=== PATIENT | female | born 1955 | race Caucasian/White ===

== ENCOUNTER 2017-09-30 16:26 | Emergency (ER) | payer MEDICAID, SELFPAY ==
[2017-09-30 16:26] VITALS: BP 197/40; PULSE 70; RESP 16; O2SAT 99
[2017-09-30 16:37] VITALS: BP 203/108; PULSE 80; RESP 18; O2SAT 98; BMI 30.7
--- NOTE | 2017-09-30 16:48 | XR_ITS ---
XR chest 2V HISTORY: ITS.REASON: HYPERTENSIVE ORDERING PHYSICIAN: Shreyas Joe MD PATIENT AGE: 62 years COMPARISON: None available FINDINGS: The cardiomediastinal silhouette and pulmonary vascularity are within normal limits. A loop recorder device noted over the left chest. No lobar consolidation or collapse. 7 mm nodular opacity is present in right upper lobe overlying the first rib anteriorly and may be due to summation artifact versus underlying nodule. Follow-up may confirm stability. No old films available for review. No acute bony anomalies. Again change thoracic spine. IMPRESSION: 1. No acute finding. 2. Right upper lobe nodular opacity. Follow-up suggested. +
--- NOTE | 2017-09-30 16:51 | HMH.EDGENADL ---
ED Disposition Clinical Impression: Accelerated hypertension, Dehydration Disposition: Home, Self-Care Condition on Discharge: Fair Additional Instructions: Drink lots of fluids and keep record of BP as before Time of Disposition: 18:15 - Critical Care Critical Care Time: No Attestation: On , the high probability of a clinically significant, sudden or life threatening deterioration of the following system(s) required my full and direct attention, intervention and personal management. The time I documented below is in addition to time spent performing reported procedures but includes the following listed in this critical care notation. Medical Decision Making - Medical Records Medical records reviewed: Yes: I reviewed the patient's medical records. Vital Signs: 09/30/17 16:26 09/30/17 16:37 09/30/17 16:56 Temperature Source Oral Pulse Rate [Right Brachial] 70 80 78 Respiratory Rate 16 16 Blood Pressure [Right Arm] 197/40 203/108 137/81 Blood Pressure Mean [Right Arm] 92 139 99 Blood Pressure Source [Right Arm] Automatic Cuff Automatic Cuff Blood Pressure Position [Right Arm] Sitting Sitting 02 Sat by Pulse Oximetry 99 98 98 Oxygen Delivery Method Room Air - Lab Data Lab results reviewed: Yes: I reviewed the patient's lab results. Lab Results 09/30/17 16:55: WBC 5.9, RBC 4.55, Hgb 13.1, Hct 39.2, MCV 86.2, MCH 28.8, MCHC 33.4, RDW 12.2, Plt Count 276, MPV 6.9 L, Neut % (Auto) 54.4, Lymph % (Auto) 38.3, [place] % (Auto) 3.6, Eos % (Auto) 3.2, Baso % (Auto) 0.5, Neut # (Auto) 3.2, Lymph # (Auto) 2.3, [place] # (Auto) 0.2, Eos # (Auto) 0.2, Baso # (Auto) 0.0 09/30/17 16:55: Sodium 140, Potassium 3.4 L, Chloride 102, Carbon Dioxide 32, Anion Gap 9.4, BUN 30 H, Creatinine 1.31 H, Estimated Creat Clear 50, Estimated GFR 41 L, Est GFR ( Amer) 50 L, Glucose 105, Calcium 9.6, Total Bilirubin 0.7, AST 30, ALT 53, Alkaline Phosphatase 181 H, Total Creatine Kinase 90, CK-MB (CK-2) 1.2, CK-MB (CK-2) Rel Index 1.3, Troponin I < 0.02, Total Protein 7.6, Albumin 4.1, Globulin 3.5 H, Albumin/Globulin Ratio 1.2 Result diagrams: 09/30/17 16:55 09/30/17 16:55 Orders (Tests/Meds): ED MEDICATIONS Discontinued Medications Generic Name Dose Route Start Last Admin Trade Name Freq PRN Reason Stop Dose Admin Hydralazine HCl 20 mg 09/30/17 17:05 09/30/17 17:11 Apresoline 20mg/Ml 1ml Vial IV 09/30/17 17:06 20 mg ONCE ONE Administration ORDERS Category Date Time Status Chest XR 2 view (NOT portable) [XR chest 2V] Stat Exams 09/30/17 16:48 Taken - Radiology Data #1 Image(s): Chest Image Reviewed: Yes I reviewed the patient's radiology results, Yes I reviewed the patient's radiology image - CT Data CT Scan: Head Time Received: 18:[address] Reviewed: Yes: I have reviewed the patient's CT results, I discussed the CT results w/the radiologist, I have viewed the radiologist's interpretation Preliminary Findings: Normal/NAD Findings Narrative: Old strokes seen but nothing acute - Meño Inquiry Pt receiving controlled substance: No Meño was queried for this patient: No General Adult HPI - General Chief complaint: Weakness Stated complaint: bp Time Seen by Provider: 09/30/17 16:58 Mode of Arrival: Ambulatory Source of Information: Patient Limitations: No Limitations Description of Symptoms (Recalled from ER Triage Doc. by RN): HYPERTENSIVE EPISODE WHILE WAITING ON THE DR - History of Present Illness HPI narrative: Pt had astrok about 1 1/2 years ago and has some very mild right sided numbness left . she has had some hoarseness for awhile and was sent by Dr. Jorge to See the ENT today and the ENT office was very busy and she felt a little lightheaded and her BP was taken and was 208/[address] Jorge wanted her to come to the ED to be evaluated. Her BP has been up a little for the past week and on arrival here, BL=899/108 and repeat was 197/80. She has also had some mi
[2017-09-30 16:56] VITALS: BP 137/81; PULSE 78; RESP 16; O2SAT 98
--- NOTE | 2017-09-30 17:05 | CT_ITS ---
CT head/brain wo con Ordering Physician: Shreyas Joe MD Patient Age: 62 years: Female HISTORY: ITS.REASON: headache and hypertension Headache hypertension TECHNIQUE: Standard axial CT head without contrast. Bone and brain windows submitted to PACS. COMPARISON :Previous head CT 11/06/2015. FINDINGS Old area of encephalomalacia at the medial left occipital lobe. There is also low-density at the right parietal-occipital junction of watershed region which more likely reflects an old area of ischemia. . Small calcification at the posterior aspect of the area appears reflect old feature. This is new since 2016 . No hemorrhage. No mass lesion or mass effect.Mild diffuse cerebral atrophy again noted Skull is intact. Visualized paranasal sinuses unremarkable. Mastoid air cells middle ear IACs unremarkable. IMPRESSION: 1. No hemorrhage. No mass lesion No discrete acute findings. 2. What appear most likely moderate old infarct with encephalomalacia at right parieto-occipital region./, Posterior Watershed region.. Suggestion scant calcification at posterior margin of this old infarct possibly raises possibility of old hemorrhagic features.... I have discussed with ER doctor & patient gives history of old infarcts with no new left-sided symptoms to raise concern regarding more recent event... This is new observations since April 2016 3. Small thin old area of ischemia at the medial left occipital lobe. Again noted. Stable since 2015 4. Also stable Tiny old lacunar infarct right central ambreen
[2017-09-30 17:08] LABS: Basophils % 0.5 % (0.1-2.0); Eosinophils # 0.2 K/mm3 (0.0-0.4); Eosinophils % 3.2 % (0.1-12.0); Hematocrit 39.2 % (37.0-47.0); Hemoglobin 13.1 g/dL (12.2-16.2); Lymphocytes # 2.3 K/mm3 (0.7-4.5); Lymphocytes % 38.3 K/mm3 (10-50); Mean Corpuscular HGB Conc 33.4 g/dL (31.8-35.4); Mean Corpuscular Hemoglobin 28.8 pg (27.0-31.2); Mean Corpuscular Volume 86.2 fl (81-99); Mean Platelet Volume 6.9 fl (7.4-10.4); Monocytes # 0.2 K/mm3 (0.1-1.0); Monocytes % 3.6 % (1.7-9.3); Neutrophils # 3.2 K/mm3 (1.8-7.8); Neutrophils % 54.4 % (37.0-80.0); Platelet Count 276 K/mm3 (142-424); Red Blood Count 4.55 M/mm3 (4.20-5.40); Red Cell Distribution Width 12.2 % (11.5-17.5); White Blood Count 5.9 K/mm3 (4.8-10.8)
[2017-09-30 17:30] LABS: Alanine Aminotransferase 53 U/L (12-78); Albumin Level 4.1 gm/dL (3.4-5.0); Albumin/Globulin Ratio 1.2 (1.1-1.8); Alkaline Phosphatase 181 U/L (46-116); Anion Gap 9.4 mEq/L (5-15); Aspartate Amino Transferase 30 U/L (15-37); Bilirubin,Total 0.7 mg/dL (0.2-1.0); Blood Urea Nitrogen 30 mg/dL (7-18); CKMB Relative Index 1.3 U/L (0-4.0); Calcium 9.6 mg/dL (8.5-10.1); Carbon Dioxide 32 mmol/L (21.0-32.0); Chloride 102 mmol/L (98-107); Creatine Kinase 90 U/L (26-192); Creatine Kinase MB 1.2 mg/ml (0.0-3.6); Creatinine Clearance Estimated 50 mL/min (0-300); Creatinine,Serum 1.31 mg/dL (0.55-1.02); Estimated Glomerular Filt Rate 41 ml/min (>60); GFR (African American) 50 ML/MIN (>60); Globulin 3.5 gm/dl (1.3-3.2); Glucose 105 mg/dL (74-106); Potassium 3.4 mmoL/L (3.5-5.1); Sodium 140 mmol/L (136-145); Total Protein,Serum 7.6 gm/dL (6.4-8.2); Troponin I < 0.02 ng/ml (0.00-0.06)
--- NOTE | 2017-09-30 17:47 | PC.NURSE ---
NO ACUTE ABNORMALITIES
[2017-09-30 18:45] VITALS: BP 125/80; PULSE 85; RESP 18
== END 2017-09-30 18:45 | disposition home or self-care (01) ==
PROVIDERS: Emergency Provider General Practice; PCP Emergency Medicine
DX: E86.0 Dehydration (principal); I16.0 Hypertensive urgency; E11.9 Type 2 diabetes mellitus without complications; Z86.73 Personal history of transient ischemic attack (TIA), and cerebral infarction without residual deficits; E78.5 Hyperlipidemia, unspecified; Z79.82 Long term (current) use of aspirin
CPT/HCPCS: 70450; 71046; 80053; 82550; 82553; 84484; 85025; 93005; 99284

== ENCOUNTER → 2023-02-28 07:59 | Outpatient (CLI) | payer MEDICARE, SELFPAY ==
--- NOTE | 2023-02-28 | CA_ITS ---
FINAL REPORT TECHNIQUE: Grayscale, color Doppler and duplex Doppler ultrasound of the kidneys, aorta and renal arteries was performed. Multiple velocities were measured. CLINICAL HISTORY: HTN COMPARISON: None FINDINGS: Aorta velocity: 102 cm/sec Right kidney: 9.3 cm. There is a 0.8 cm cystic structure in the right kidney. Right intrarenal RI: 0.69-0.75 Right renal artery velocity: 152 cm/sec. Right RAR (Renal artery-Aortic Ratio): 1.49 Left Kidney: 8.3 cm. No evidence of hydronephrosis or mass. Left intrarenal RI: 0.64-0.71 Left renal artery velocity: 175 cm/sec. Left RAR (Renal Artery-Aortic Ratio): 1.72 IMPRESSION: No evidence of significant renal artery stenosis. CT angiogram or postcontrast MR angiogram would be more sensitive for evaluation of possible renal artery stenosis. Reviewed, Interpreted and Dictated by Colton Tang MD Transcribed by Allison Cooper Authenticated and [facility]
--- NOTE | 2023-02-28 | CA_ITS ---
FINAL REPORT TECHNIQUE: Color Doppler, duplex Doppler and caceres scale sonography of the bilateral neck arterial vasculature was performed. Velocities were measured in the carotid arteries. Stenosis evaluation based on the validated velocity criteria. CLINICAL HISTORY: hx- hemorrhagic stroke 7 years ago. HTN, Dizziness COMPARISON: none FINDINGS: The peak systolic velocity of the right common carotid artery is 50 cm/s. The peak systolic velocity of the right internal carotid artery is 60 cm/s and end diastolic velocity 19 cm/s. The ICA/CCA ratio is 1.07. A minimal amount of plaque is present. The right external carotid artery is patent. The right vertebral artery is patent with antegrade flow. The peak systolic velocity of the left common carotid artery is 55 cm/s. The peak systolic velocity of the left internal carotid artery is 96 cm/s and end diastolic velocity 30 cm/s. The ICA/CCA ratio is 1.81. A minimal amount of plaque is present. The left external carotid artery is patent.The left vertebral artery is patent with antegrade flow. IMPRESSION: Less than 50% bilateral carotid stenoses. Bilateral patent vertebral arteries with antegrade flow. If indicated, CTA or MRA could further evaluate. Reviewed, Interpreted and Dictated by Colton Tang MD Transcribed by Allison Cooper Authenticated and [facility]
== END ==
PROVIDERS: PCP Family Medicine; Visit Provider Family Medicine
DX: R09.89 Other specified symptoms and signs involving the circulatory and respiratory systems (principal)
CPT/HCPCS: 93880; 93976

== ENCOUNTER 2023-02-28 10:28 | Emergency (ER) | payer MEDICARE, SELFPAY ==
[2023-02-28] VITALS (17 sets, daily range): BP systolic 142–218; BP diastolic 61–132; PULSE 45–99; RESP 12–22; TEMP 36.8; O2SAT 96–100; BMI 27.3
--- NOTE | 2023-02-28 10:35 | PC.NURSE ---
ALAN HAYNES at
[2023-02-28 10:46] LABS: POC Glucose,Bedside 95 (70-110)
--- NOTE | 2023-02-28 10:46 | PC.NURSE ---
RN & MD @ BS for labetalol administration.
--- NOTE | 2023-02-28 10:57 | PC.NURSE ---
VO for EKG from MD for cardiac rate and rhythm change
--- NOTE | 2023-02-28 10:57 | HMH.EDNEU ---
Discharge Plan Disposition Patient Disposition: Home, Self-Care Prescriptions Prescriptions: New hydralazine 25 mg tablet 25 mg PO TID Qty: 30 0RF No Action (DME) lancets [OneTouch Delica Plus Lancet] 33 gauge misc See Rx Instructions .ROUTE .COMPLEX Qty: 100 3RF Dose Instruction: USE 1 TO CHECK GLUCOSE TWICE DAILY Rx Instructions: USE 1 TO CHECK GLUCOSE TWICE DAILY hydrochlorothiazide 12.5 mg tablet 12.5 mg PO DAILY Qty: 30 2RF (DME) OneTouch Ultra Test Strip See Rx Instructions .ROUTE .COMPLEX Qty: 100 2RF Dose Instruction: USE 1 STRIP TO CHECK GLUCOSE TWICE DAILY Rx Instructions: USE 1 STRIP TO CHECK GLUCOSE TWICE DAILY amlodipine [Norvasc] 5 mg tablet 5 mg PO HS Qty: 30 0RF Referrals Follow up/Referrals: Shaan Lala MD [Primary Care Provider] - See instructions Clinical Impressions Clinical Impression: Accelerated hypertension Discharge ED Provider: Matt Larkin Neuro HPI General Chief Complaint: Neuro Symptoms/Deficit Stated Complaint: headache Time Seen by Provider: 02/28/23 10:44 Mode of Arrival: Ambulatory Source of Information: Patient Limitations: No Limitations Description of Symptoms (Recalled from ER Triage Doc. by RN): Presents to ED with complaints of right sided headache that began at 0200 this morning further reports intermittent headache x 3 days. Hx of CVA x3 (most recent x 7 years ago). No neuro deficits noted. Denies BP meds History of Present Illness HPI Narrative: 67-year-old white female presents with headache on the right side beginning about 2:00 this morning she has had history of 3 strokes all the most recent being 7 years ago she has antihypertensives prescribed but she does not take them. She lists lisinopril as an allergy and has a diagnosis of accelerated hypertension. The medications that she has listed for blood pressure include amlodipine 5 mg and hydrochlorothiazide 12.5 mg Related Data Previous Rx's Medication Instructions Recorded lancets 33 gauge (OneTouch Delica #100 ea 05/01/21 Plus Lancet) hydrochlorothiazide 12.5 mg tablet 12.5 mg PO DAILY #30 tabs 09/05/21 blood sugar diagnostic (OneTouch #100 ea 09/11/21 Ultra Test strips) amlodipine 5 mg tablet (Norvasc) 5 mg PO HS #30 tabs 05/23/22 hydralazine 25 mg tablet 25 mg PO TID #30 tabs 02/28/23 Allergies Allergy/AdvReac Type Severity Reaction Status Date / Time lisinopril AdvReac Mild cough Verified 08/21/21 09:56 Stroke Alert/NIH Score LOC Stroke Alert: No Location of Alert: Emergency Department Level of Consciousness: Alert LOC Questions: Answers both correctly LOC Commands: Obeys both correctly PFSH PFSH Disclaimer: The information contained in this section may have been updated after the patient was seen, as this information can be updated by other users. Social History Smoking Status: Never smoker alcohol intake: never substance use type: denies use current occupational status: retired Travel in the last 8 weeks: None household members: spouse housing: house ROS Obtained: Yes Systems reviewed as appropriate & no additional complaints except as documented Physical Exam General General appearance: alert and in no apparent distress Head Head exam: atraumatic and normocephalic Eye Eye exam: Present normal appearance and PERRL Neck Neck exam: Present normal inspection Respiratory Respiratory exam: Present normal lung sounds bilaterally Cardiovascular Cardiovascular exam: Present regular rate and normal rhythm Abdominal Exam Abdominal exam: Present soft; Absent tenderness Extremities Exam Extremities exam: Present normal inspection and full ROM Neurological Exam Neurological exam: Present alert, oriented X3 and CN II-XII intact Medical Decision Making Medical Records MR Comment: 67-year-old white female came with the dizziness headache on the right side. Patient has antihypertensives prescribed but does
--- NOTE | 2023-02-28 11:00 | ECG_ITS ---
APPROVED REPORT Exam: Resting ECG HR:65 bpm ECG Measurements Heart Rate 65 AXES TX 314 P 21 QRSd 90 QRS 42 QT 432 T 29 QTc 443 Conclusion SINUS RHYTHM WITH FIRST DEGREE AV BLOCK NONSPECIFIC T-WAVE ABNORMALITY ABNORMAL ECG UNCONFIRMED REPORT Electronically signed by : Ha Roy MD 02/28/2023 20:06:49
--- NOTE | 2023-02-28 11:20 | PC.NURSE ---
Warm blanket provided, personal belongings bag given to . Call chapman within reach of patient
--- NOTE | 2023-02-28 12:04 | XR_ITS ---
FINAL REPORT CLINICAL HISTORY: Malignant hypertension COMPARISON: 09/30/2017 FINDINGS: Loop recorder is present over the medial left hemithorax. The heart size is normal. The mediastinum is normal. There is no focal infiltrate or edema. There are no pleural effusions. There is no pneumothorax. There is no osseous abnormality. IMPRESSION: No acute cardiopulmonary process Reviewed, Interpreted and Dictated by Colton Tang MD Transcribed by Allison Cooper Authenticated and [facility]
--- NOTE | 2023-02-28 12:04 | CT_ITS ---
FINAL REPORT TECHNIQUE: multiple axial CT images were performed from the foramen magnum to the vertex without enhancement. CLINICAL HISTORY: Malignant hypertension and headache COMPARISON: 09/30/2017 FINDINGS: The ventricles are enlarged. There is mild atrophy. There is encephalomalacia in the right posterior parietal lobe which is more extensive than on the prior study. There is also an stable encephalomalacia in the medial left occipital lobe. There is patchy decreased attenuation in the deep white matter. There is no evidence of hemorrhage. No masses are identified. No evidence of mass effect or edema. No extra-axial fluid is seen. The paranasal sinuses are well aerated. IMPRESSION: Encephalomalacia right posterior parietal lobe slightly more extensive than previous. Stable encephalomalacia left occipital lobe. Changes of chronic microvascular ischemia. Reviewed, Interpreted and Dictated by Colton Tang MD Transcribed by Allison Cooper Authenticated and [facility]
--- NOTE | 2023-02-28 12:09 | PC.NURSE ---
Assessed patient; patient reports feeling lightheaded. MD notified of lightheadedness and current BP of 147/80. Will continue to monitor at this time.
[2023-02-28 12:32] LABS: Basophils % 0.3 % (0.1-2.0); Eosinophils % 0.4 % (0.1-12.0); Hematocrit 47.2 % (37.0-47.0); Lymphocytes # 1.4 K/mm3 (0.7-4.5); Lymphocytes % 24.7 % (10-50); Mean Corpuscular HGB Conc 33.9 g/dL (31.8-35.4); Mean Corpuscular Hemoglobin 30.1 pg (27.0-31.2); Mean Corpuscular Volume 88.5 fl (81-99); Monocytes # 0.2 K/mm3 (0.1-1.0); Monocytes % 4.1 % (1.7-9.3); Neutrophils # 3.9 K/mm3 (1.8-7.8); Neutrophils % 70.5 % (37.0-80.0); Platelet Count 255 K/mm3 (142-424); Red Blood Count 5.33 M/mm3 (4.20-5.40); Red Cell Distribution Width 13.1 % (11.5-17.5); White Blood Count 5.6 K/mm3 (4.8-10.8)
[2023-02-28 12:57] LABS: Alanine Aminotransferase 25 U/L (12-78); Albumin Level 4.8 g/dl (3.5-5.0); Albumin/Globulin Ratio 1.4 (1.1-1.8); Alkaline Phosphatase 107 U/L (38-126); Anion Gap 16.9 mEq/L (5-15); Aspartate Amino Transferase 38 U/L (14-36); Bilirubin,Total 1.6 mg/dl (0.2-1.3); Blood Urea Nitrogen 22 mg/dl (7-17); Calcium 9.5 mg/dl (8.4-10.2); Carbon Dioxide 26 mmol/L (22.0-30.0); Chloride 103 mmol/L (98-107); Creatinine Clearance Estimated 54 mL/min (50-200); Estimated Glomerular Filt Rate 55 ml/min (>60); GFR (African American) 67 ML/MIN (>60); Globulin 3.4 g/dL (1.3-3.2); Glucose 101 mg/dl (74-100); Potassium 3.9 mmoL/L (3.5-5.1); Sodium 142 mmol/L (136-145); Total Protein,Serum 8.2 g/dl (6.3-8.2)
[2023-02-28 13:09] LABS: Troponin I < 0.01 ng/ml (0.00-0.034)
--- NOTE | 2023-02-28 13:37 | PC.NURSE ---
patients asked if patient can have some lunch, will verify with doctor that its ok
--- NOTE | 2023-02-28 13:45 | PC.NURSE ---
lunch tray ordered for patient and spouse
--- NOTE | 2023-02-28 13:46 | PC.NURSE ---
contacted rad to check on status of CT results-rad staff reports study is locked at this time.
--- NOTE | 2023-02-28 13:56 | PC.NURSE ---
asked MD about repeat trop he does not want
--- NOTE | 2023-02-28 14:12 | PC.NURSE ---
Rounded on patient and ; call chapman within reach of patient
== END 2023-02-28 14:39 | disposition home or self-care (01) ==
PROVIDERS: Emergency Provider Emergency Medicine; PCP Internal Medicine
DX: I10 Essential (primary) hypertension (principal); R51.9 Headache, unspecified; I44.0 Atrioventricular block, first degree; Z86.73 Personal history of transient ischemic attack (TIA), and cerebral infarction without residual deficits; Z91.148 Patient's other noncompliance with medication regimen for other reason
CPT/HCPCS: 70450; 71045; 80053; 82962; 84484; 85025; 93005; 93880; 93976; 96374; 96375; 99285

== ENCOUNTER 2024-08-03 06:58 | Inpatient (IN) | payer MEDICARE, SELFPAY ==
[2024-08-03] VITALS (23 sets, daily range): BP systolic 116–156; BP diastolic 58–78; PULSE 40–70; RESP 14–20; TEMP 36.1–37.7; O2SAT 93–100; BMI 24.9; BMI 29.7
--- NOTE | 2024-08-03 06:55 | ECG_ITS ---
APPROVED REPORT Exam: Resting ECG HR:41 bpm ECG Measurements Heart Rate 41 AXES QRSd 108 QRS 59 QT 568 T 110 QTc 503 Conclusion SINUS RHYTHM WITH HIGH GRADE AV BLOCK LATERAL MYOCARDIAL INFARCTION , PROBABLY RECENT [40+ ms Q WAVE AND/OR ST/T ABNORMALITY IN I/aVL/V5/V6] INFERIOR MYOCARDIAL INFARCTION , POSSIBLY ACUTE [40+ ms Q WAVE AND/OR ST/T ABNORMALITY IN II/aVF] ST ELEVATION, CONSIDER ANTERIOR INJURY [MARKED ST ELEVATION W/O NORMALLY INFLECTED T-WAVE IN V2-V5] PROLONGED QT INTERVAL ACUTE VA STEMI Electronically signed by : NURYS LÓPEZ, 08/08/2024 17:32:06
--- NOTE | 2024-08-03 07:00 | PC.NURSE ---
pt placed on zoll, right radial wrist and bilateral groin clipped. pt consented.
--- NOTE | 2024-08-03 07:03 | PC.NURSE ---
radiology at bedside. at bedside and updated on plan of care.
--- NOTE | 2024-08-03 07:03 | XR_ITS ---
FINAL REPORT CLINICAL HISTORY: dyspnea COMPARISON: None FINDINGS: A portable view of the chest is obtained. There are low lung volumes on this examination. Cardiac and mediastinal silhouettes are normal. The lungs are clear. There is no pleural effusion or pneumothorax. IMPRESSION: Low lung volumes, otherwise no acute process on this portable exam. Reviewed, Interpreted and Dictated by Corry Salter MD Transcribed by Betzy Springer Authenticated and [facility]
--- NOTE | 2024-08-03 07:03 | IR_ITS ---
APPROVED REPORT Patient Location: Emergent Riveting Machine Operator Automatic: OSBALDO Frazier RT (R) PROCEDURES Left heart catheterization Left ventriculogram Selective coronary angiogram Mechanical thrombectomy to the mid dominant right coronary artery Drug-eluting stent deployment to the ostial proximal and mid dominant right coronary artery in a contiguous manner Right ulnar arterial access Retrograde angiography of the right ulnar artery INDICATION Acute ST elevation myocardial infarction, Coronary artery disease, Stent embolization to the right ulnar artery Informed consent was obtained prior to the procedure. COMPLICATIONS None Estimated Blood Loss: Less than 10 mls TECHNIQUE One percent lidocaine used to anesthetize the right anterior aspect of the wrist. The right radial artery was accessed via the Seldinger technique. A 6 Macedonian sheath was placed in the right radial artery. 2.5 mg of Verapamil, 800 mcg of nitroglycerin, 1mg Lidocaine were given through the arterial sheath. The papa catheter was also used to perform selective engagement of the right coronary artery. Therapeutic heparin had already been administered in the emergency department. Guide catheter was placed in the right coronary followed by Choice PT extra-support wire placed distally. A penumbra mechanical thrombectomy catheter was advanced and mechanical aspiration restored VALENCIA-3 flow. A 4 mm x 38 mm stent could not be delivered with primary stenting. When the stent was pulled back into the catheter there was kinking of the guide catheter which trapped the stent. There was an attempt to remove the entire catheter however the stent became dislodged and embolized into the right axillary artery. At this point a JR4 guide catheter was placed back into the right coronary artery and a Choice PT extra-support wire was placed back into the right coronary artery. A 2.5 mm balloon was used to predilate the stenosis in the LAD. This allowed delivery of a 4 mm x 38 mm Tignall frontier stent to be deployed at 24 jose in the ostial proximal segment of the dominant right coronary artery. An additional 4 mm x 38 mm Tignall frontier stent was placed distal to the for stent yet still overlapping and also deployed at 24 jose. VALENCIA 0 flow was present at the beginning the procedure with VALENCIA-3 flow at the end of the procedure. At this point attention was made to the Free stent floating in the axillary artery. The stent now had dislodged down into the right ulnar artery. 1% lidocaine was used to anesthetize the right medial aspect of the wrist and a 4 Macedonian sheath was placed in the right radial artery. Retrograde angiography was performed. A wire was advanced past the stent and a 4 Macedonian JR4 catheter was used to push the stent into the brachial artery. Once in the brachial artery right radial access had a snare advanced which captured the stent and allowed retrieval of the stent back into the 6 Macedonian JR4 catheter. At this point a 4 Macedonian JL 4 catheter was used to perform left coronary artery angiography. At the end of the procedure the apparatus was removed the right radial sheath was removed good hemostasis was achieved using TR banding patient was transferred to the postop holding area in stable condition for additional postoperative care and eventual removal of the right ulnar artery sheath. ANGIOGRAPHIC RESULTS The left main artery Patent The left anterior descending artery Has an ostial 70% stenosis followed by an additional proximal 60% stenosis The circumflex artery Is nondominant and gives rise to a small to medium sized first obtuse marginal artery which has an ostial 95% stenosis accompanied by VALENCIA II flow. The second obtuse marginal artery is subtotally occluded and has VALENCIA I flow. Both vessels are 2 mm in diameter The right coronary artery Massively large dominant with an ostial 70 to 80% stenosis and occluded at mid vessel. Following revascularization the ostial proximal and mid segment are widely patent with excellent VALENCIA-3 flow. Distally there were diffuse 40 and 50% atheromatous plaque The ROSE ventriculogram reveals Reduced at 35 to 40% The left ventricular end-diastolic pressure 20 mmHg IMPRESSION Critical disease as described above Successful stenting of the ostial proximal mid dominant right coronary occlusion reduced to 0% with 2 contiguous drug-eluting stents Persistent severe stenosis in the proximal LAD as described above Subtotal occlusion of the first and second obtuse marginal artery as described above which are likely too small for successful percutaneous intervention Successful retrieval of embolized stent PLAN 1. Brilinta and aspirin 2. Formal echocardiogram 3. LifeVest if patient is appropriate candidate 4. Patient would like to be brought back to the [facility] and 2 to 4 weeks and undergo stenting of the LAD. The circumflex artery is likely not amenable to percutaneous intervention 5. LDL less than 55 to achieve that high intensity statin 6. Start Entresto once hemodynamically stable 7. Continuous telemetry for next 48 hours. Electronically signed by : Alexx Young MD 08/03/2024 10:26:09
--- NOTE | 2024-08-03 07:04 | ED_ITS ---
Discharge Plan Disposition Patient Disposition: Admitted Clinical Impressions Clinical Impression: ST elevation (STEMI) myocardial infarction, Complete heart block Discharge ED Provider: Kathia Valverde HPI General Stated Complaint: Chest Pain Time Seen by Provider: 08/03/24 07:03 History of Present Illness HPI narrative: Patient is a 69-year-old female presents today with chest pain that started about 4 AM woke her up from sleep. Radiated to right shoulder right hand. She denies any other significant past medical history. Has not had any MIs or coronary disease in the past. Related Data Previous Rx's ?Medication ?Instructions ?Recorded lancets 33 gauge (OneTouch Delica #100 ea 05/01/21 Plus Lancet) hydrochlorothiazide 12.5 mg tablet 12.5 mg PO DAILY #30 tabs 09/05/21 blood sugar diagnostic (OneTouch #100 ea 09/11/21 Ultra Test strips) amlodipine 5 mg tablet (Norvasc) 5 mg PO HS #30 tabs 05/23/22 hydralazine 25 mg tablet 25 mg PO TID #30 tabs 02/28/23 Allergies Allergy/AdvReac Type Severity Reaction Status Date / Time lisinopril AdvReac Mild cough Verified 08/03/24 07:29 [facility] Disclaimer: The information contained in this section may have been updated after the patient was seen, as this information can be updated by other users. Social History Smoking Status: Never smoker alcohol intake: never substance use type: denies use current occupational status: retired household members: spouse housing: house Other Medical History Have you received the Flu Vaccine for this season: No Have you received the Pneumonia Vaccine: No ROS Obtained: Yes All systems reviewed & no additional complaints except as documented Physical Exam General General appearance: in distress Respiratory Respiratory exam: Present normal lung sounds bilaterally and respiratory distress Cardiovascular Cardiovascular exam: Present bradycardia Neurological Exam Neurological exam: Present alert and oriented X3 HEART Score HEART Score HEART Score assessment performed?: Yes History (anamnesis): Highly suspicious ECG: Significant ST-deviation Age: >65 years Risk factors: No known risk factors Troponin: </= normal limit (Please note troponin was not back as the patient was a STEMI and went to the [employer]) HEART Score: 6 Critical Care Critical Care Time Critical Care Time: Yes Attestation: On 08/03/24, the high probability of a clinically significant, sudden or life threatening deterioration of the following system(s) required my full and direct attention, intervention and personal management. The time I documented below is in addition to time spent performing reported procedures but includes the following listed in this critical care notation. Total Time Total Critical Care Time: 35 Medical Decision Making Meño Inquiry Pt receiving controlled substance: No Lab Data Labs: Lab Results 08/03/24 06:50: WBC 8.0, RBC 4.84, Hgb 14.6, Hct 42.8, MCV 88.5, MCH 30.1, MCHC 34.0, RDW 13.6, Plt Count 284, MPV 7.1 L, Neut % (Auto) 43.0, Lymph % (Auto) 49.8, [place] % (Auto) 4.7, Eos % (Auto) 1.6, Baso % (Auto) 0.9, Neut # (Auto) 3.4, Lymph # (Auto) 4.0, [place] # (Auto) 0.4, Eos # (Auto) 0.1, Baso # (Auto) 0.1, PT 10.2, INR 0.90, APTT 25.2, Sodium 139, Potassium 3.7, Chloride 108 H, Carbon Dioxide 24, Anion Gap 10.7, BUN 21 H, Creatinine 1.30 H, Estimated Creat Clear 43, Estimated GFR 41 L, Est GFR ( Amer) 49 L, Glucose 209 H, Calcium 9.5, Total Bilirubin 0.8, AST 26, ALT 23, Alkaline Phosphatase 104, Total Protein 6.4, Albumin 3.9, Globulin 2.5, Albumin/Globulin Ratio 1.6 08/03/24 06:50 08/03/24 06:50 Response Orders (Tests/Meds): ED MEDICATIONS Generic Name Dose Route Start Last Admin Trade Name Freq PRN Reason Stop Dose Admin Fentanyl Citrate 50 mcg 08/03/24 07:25 Fentanyl 100mcg/2ml Vial IV 08/03/24 19:25 Q3MINP PRN Sedation Fentanyl Citrate 25 mcg 08/03/24 07:25 Fentanyl 100mcg/2ml Vial IV 08/03/24 19:25 Q3MINP PRN Sedation Flumazenil 0.2 mg 08/03/24 07:25 Flumazenil 0.1mg/Ml 5ml Vial IV 08/03/24 19:25 NEEDED PRN Sedation Heparin Sodium (Porcine) 10,000 unit 08/03/24 07:25 Heparin 1,000 Units/Ml 10ml Vial ([employer]) IV 08/03/24 11:25 NEEDED PRN Emergency [facility] [employer] Hydralazine HCl 20 mg 08/03/24 07:25 Hydralazine 20mg/Ml Vial IV 08/03/24 11:25 ONCE PRN sbp>160 Adenosine 180 mg/ Sodium 90 mls @ 355.163 mls/hr 08/03/24 07:25 Chloride IV 08/03/24 11:25 ONCE PRN fractional flow reserve 180 MCG/KG/MIN Adenosine 90 mg/ Sodium 90 mls @ 710.327 mls/hr 08/03/24 07:25 Chloride IV 08/03/24 11:25 ONCE PRN fractional flow reserve 180 MCG/KG/MIN Sodium Chloride 1,000 mls @ 25 mls/hr 08/03/24 07:30 Sod Chloride 0.9% 500ml Bag IV 08/04/24 07:25 .Q25H NU Labetalol HCl 20 mg 08/03/24 07:25 Labetalol 20mg/4ml Syringe IV 08/03/24 11:25 ONCE PRN sbp>160 Midazolam HCl 1 mg 08/03/24 07:25 Midazolam 2mg/2ml Vial IV 08/03/24 19:25 Q3MINP PRN Sedation Midazolam HCl 1 mg 08/03/24 07:25 Midazolam Hcl 1mg/Ml 5ml Vial IV 08/03/24 19:25 Q3MINP PRN Sedation Naloxone HCl 0.4 mg 08/03/24 07:25 Naloxone 0.4mg/Ml Vial IV 08/03/24 19:25 Q5MINP PRN Decreased Respirations Nitroglycerin 800 mcg 08/03/24 07:25 Nitroglycerin 800mcg/8ml Syr ([employer]) IA 08/03/24 11:25 NEEDED PRN Emergency [facility] [employer] Protamine Sulfate 50 mg 08/03/24 07:25 Protamine Sulfate 50mg/5ml Vial ([employer]) IV 08/03/24 11:25 ONCE PRN act>200 Discontinued Medications Generic Name Dose Route Start Last Admin Trade Name Freq PRN Reason Stop Dose Admin Aspirin 324 mg 08/03/24 06:59 08/03/24 07:05 Aspirin 81mg Chewable Tablet PO 08/03/24 07:00 324 mg ONCE ONE Administration Diphenhydramine HCl 50 mg 08/03/24 07:25 Diphenhydramine 50mg/Ml Vial IV 08/03/24 07:26 ONCE ONE Heparin Sodium (Porcine) 6,590 unit 08/03/24 06:59 08/03/24 07:05 Heparin Sodium 5,000 Unit/Ml Vial IV 08/03/24 07:00 6,590 unit ONCE ONE Administration Heparin Sodium/Sodium Chloride 3,000 unit 08/03/24 07:25 Heparin 1,000 Units/500ml Ns ([employer]) IV 08/03/24 07:26 ONCE ONE Lidocaine HCl 20 ml 08/03/24 07:25 Lidocaine 1% 10ml Mdv IJ 08/03/24 07:26 ONCE ONE Lidocaine HCl 20 ml 08/03/24 07:25 Lidocaine 1% 5ml Pf Vial IJ 08/03/24 07:26 ONCE ONE Ondansetron HCl 4 mg 08/03/24 07:08 08/03/24 07:08 Ondansetron 4mg/2ml Vial IV 08/03/24 07:09 4 mg ONCE ONE Administration Ticagrelor 180 mg 08/03/24 06:59 08/03/24 07:06 Ticagrelor 90mg Tablet PO 08/03/24 07:00 180 mg ONCE ONE Administration Verapamil HCl 2.5 mg 08/03/24 07:25 Verapamil 2.5mg/Ml 2ml Vial IV 08/03/24 07:26 ONCE ONE ORDERS Category Date Time Status CXR --portable [XR chest portable] Stat Exams 08/03/24 07:03 Taken CBC w/Auto Diff [Complete Blood Count Auto Diff] Stat Lab 08/03/24 06:50 Completed CMP [Comprehensive Metabolic Panel] Stat Lab 08/03/24 06:50 Results PT/PTT Stat Lab 08/03/24 06:50 Completed Trop I [Troponin I] Stat Lab 08/03/24 06:50 Results Troponin I Q3H Lab 08/03/24 10:15 Ordered Troponin I Q3H Lab 08/03/24 13:15 Ordered ECG Data Tracing #1: Attestation: I reviewed this ECG and interpreted as documented below: ECG Narrative: Ventricular rate of 41, there appears to be A-V dissociation with complete heart block there are inferior ST elevation significantly in the inferior leads with reciprocal ST depressions a high lateral leads MDM Narrative Medical Decision Narrative: 69-year-old female had an EKG immediately performed upon arrival she had significant ST elevations in the inferior leads with reciprocal changes in the high lateral leads she also had A-V dissociation with complete heart block. She was perfusing well with pulse in the 40s to 50s I chose not to transcutaneously pace her. She was given aspirin Brilinta and heparin after consultation with our strawberry grower she was taken immediately to the [facility] for further intervention. I was at the bedside with her in the [facility] until the periodicals library assistant arrived. Patient pads were placed on her chest. She remained hemodynamically stable until the periodicals library assistant arrived.
[2024-08-03] MEDS: HEPARIN SODIUM 5,000 UNIT/ML VIAL 6590 UNIT IV (07:05)
[2024-08-03] MEDS: ASPIRIN 81MG CHEWABLE TABLET 324 MG PO (07:05)
[2024-08-03] MEDS: TICAGRELOR 90MG TABLET 180 MG PO (07:06)
--- NOTE | 2024-08-03 07:06 | PC.NURSE ---
pt going to cathlab at this time.
[2024-08-03] MEDS: ONDANSETRON 4MG/2ML VIAL 4 MG IV (07:08)
[2024-08-03 07:09] LABS: Basophils # 0.1 K/mm3 (0-0.2); Basophils % 0.9 % (0.1-2.0); Eosinophils # 0.1 K/mm3 (0.0-0.4); Eosinophils % 1.6 % (0.1-12.0); Hematocrit 42.8 % (37.0-47.0); Hemoglobin 14.6 g/dL (12.2-16.2); Lymphocytes % 49.8 % (10-50); Mean Corpuscular Hemoglobin 30.1 pg (27.0-31.2); Mean Corpuscular Volume 88.5 fl (81-99); Mean Platelet Volume 7.1 fl (7.4-10.4); Monocytes # 0.4 K/mm3 (0.1-1.0); Monocytes % 4.7 % (1.7-9.3); Neutrophils # 3.4 K/mm3 (1.8-7.8); Platelet Count 284 K/mm3 (142-424); Red Blood Count 4.84 M/mm3 (4.20-5.40); Red Cell Distribution Width 13.6 % (11.5-17.5)
[2024-08-03 07:14] LABS: Albumin Level 3.9 g/dl (3.5-5.0); Chloride 108 mmol/L (98-107)
[2024-08-03 07:15] LABS: Potassium 3.7 mmoL/L (3.5-5.1); Sodium 139 mmol/L (136-145)
[2024-08-03 07:17] LABS: Alanine Aminotransferase 23 U/L (12-78); Anion Gap 10.7 mEq/L (5-15); Aspartate Amino Transferase 26 U/L (14-36); Blood Urea Nitrogen 21 mg/dl (7-17); Carbon Dioxide 24 mmol/L (22.0-30.0); Creatinine Clearance Estimated 43 mL/min (50-200); Estimated Glomerular Filt Rate 41 ml/min (>60); GFR (African American) 49 ML/MIN (>60)
[2024-08-03 07:18] LABS: Albumin/Globulin Ratio 1.6 (1.1-1.8); Alkaline Phosphatase 104 U/L (38-126); Bilirubin,Total 0.8 mg/dl (0.2-1.3); Calcium 9.5 mg/dl (8.4-10.2); Globulin 2.5 g/dL (1.3-3.2); Glucose 209 mg/dl (74-100); Total Protein,Serum 6.4 g/dl (6.3-8.2)
[2024-08-03 07:21] LABS: Activated Partial Thrombo Time 25.2 seconds (22.8-30.6); Prothrombin Time 10.2 seconds (10.1-12.5)
[2024-08-03 07:30] LABS: Troponin I 0.02 ng/ml (0.00-0.034)
[2024-08-03] MEDS: diphenhydrAMINE 50MG/ML VIAL 50 MG IV (07:39)
[2024-08-03] MEDS: FENTANYL 100MCG/2ML VIAL 50 MCG IV (07:39)
[2024-08-03] MEDS: MIDAZOLAM HCL 1MG/ML 5ML VIAL 1 MG IV (07:39)
[2024-08-03] MEDS: 0.9 % SODIUM CHLORIDE 500 ML 25 ML IV (07:40)
[2024-08-03] MEDS: VERAPAMIL 2.5MG/ML 2ML VIAL 2.5 MG IV (07:40)
[2024-08-03] MEDS: HEPARIN 1,000 UNITS/500ML NS (CATH LAB) 3000 UNIT IV (07:40)
[2024-08-03] MEDS: NITROGLYCERIN 800MCG/8ML SYR (CATH LAB) 800 MCG IA (07:40)
[2024-08-03] MEDS: LIDOCAINE 1% 10ML MDV 20 ML IJ (07:41)
[2024-08-03] MEDS: IOPAMIDOL-370 (76%);100ML BOTTLE 120 ML IV (09:06)
--- NOTE | 2024-08-03 09:26 | HMH.PHAINT1 ---
Pharmacy Intervention Comments: MEDICATION RECONCILIATION COMPLETED ON PATIENT USING EXTERNAL FILL HISTORY FROM PHARMACY. -CASSANDRA SHELLEY, ROSAD
--- NOTE | 2024-08-03 09:27 | SUR.PHASEII ---
5ml of air taken out of radial band in right wrist. Sheath in ulnar flushed with heparin saline. Pt fingers are slightly cold, good cap refill, and pink.
--- NOTE | 2024-08-03 09:43 | SUR.PHASEII ---
Pt fingers are slightly cold to the touch, cap refill good, pt able to wiggle fingers. Attempted to take all the air out of the band on the radial artery but started to bleed added 4ml of air back in.
--- NOTE | 2024-08-03 10:03 | P.HP_ITS ---
History of Present Illness *Admission Date: 08/03/24 *Reason for visit:: STEMI *History of present illness: Ms. Domingo is a pleasant 69-year-old female with history of obesity, diabetes, and hypertension. Remote history of strokes with no residual deficits. Over the past few years has lost 100 pounds through diet and exercise. Continues to take medication for blood pressure every other day. On no treatment for diabetes at this time as it improved after losing weight. She has had intermittent fatigue and an episode of chest discomfort about a month and a half ago. Has been trying to participate in physical activity including water fitness but felt more fatigued last week and had to take regular breaks. She presented to the ER emergently this morning after awaking about 4 AM from sleep and having chest discomfort, pain into her jaw and shoulder. She proceeded to have an episode of diarrhea and emesis and pain did not get better. On arrival to the ER, EKG obtained showing mariana STEMI with ST elevation in anterior and lateral leads. [employer] activated and taken urgently for percutaneous intervention. Patient found to have multivessel disease with placement of 3 stents. Admitted for inpatient treatment and monitoring for at least 48 hours on telemetry. On evaluation, patient is chest pain-free at this time after her procedure. Resting comfortably in bed. Having occasional PVCs on telemetry with sinus bradycardia. [facility] Disclaimer: The information contained in this section may have been updated after the patient was seen, as this information can be updated by other users. Medical History Stroke Hernia Surgical History H/O: section Social History Smoking Status: Never smoker alcohol intake: never substance use type: denies use current occupational status: retired Travel in the last 8 weeks: None household members: spouse housing: house Other Medical History Have you received the Flu Vaccine for this season: No Have you received the Pneumonia Vaccine: No Meds Home Medications and Allergies Home Medications ?Medication ?Instructions ?Recorded ?Confirmed ?Type lancets 33 gauge (WhistleTouch Delica #100 ea 05/01/21 08/03/24 Rx Plus Lancet) blood sugar diagnostic (WhistleTouch #100 ea 09/11/21 08/03/24 Rx Ultra Test strips) amlodipine 5 mg tablet (Norvasc) 5 mg PO HS #30 tabs 05/23/22 08/03/24 Rx losartan 50 mg tablet 50 mg PO QODHS 08/03/24 08/03/24 History New Prescriptions to Start Prescriptions: Allergies Allergy/AdvReac Type Severity Reaction Status Date / Time lisinopril AdvReac Mild cough Verified 08/03/24 07:29 Exam Data for Last 24 hours Vital signs and Labs for Last 24 Hours: Temp Pulse Resp BP Pulse Ox O2 Del Method 97.0 F L 43 L 18 134/62 94 L Room Air 08/03/24 07:07 08/03/24 09:45 08/03/24 09:45 08/03/24 09:45 08/03/24 09:45 08/03/24 09:45 Laboratory Results - last 24 hr 08/03/24 06:50: WBC 8.0, RBC 4.84, Hgb 14.6, Hct 42.8, MCV 88.5, MCH 30.1, MCHC 34.0, RDW 13.6, Plt Count 284, MPV 7.1 L, Neut % (Auto) 43.0, Lymph % (Auto) 49.8, [place] % (Auto) 4.7, Eos % (Auto) 1.6, Baso % (Auto) 0.9, Neut # (Auto) 3.4, Lymph # (Auto) 4.0, [place] # (Auto) 0.4, Eos # (Auto) 0.1, Baso # (Auto) 0.1, PT 10.2, INR 0.90, APTT 25.2, Sodium 139, Potassium 3.7, Chloride 108 H, Carbon Dioxide 24, Anion Gap 10.7, BUN 21 H, Creatinine 1.30 H, Estimated Creat Clear 43, Estimated GFR 41 L, Est GFR ( Amer) 49 L, Glucose 209 H, Calcium 9.5, Total Bilirubin 0.8, AST 26, ALT 23, Alkaline Phosphatase 104, Troponin I 0.02, Total Protein 6.4, Albumin 3.9, Globulin 2.5, Albumin/Globulin Ratio 1.6 I & O for Last 24 hours: Intake & Output 07/31/24 08/01/24 08/02/24 08/03/24 23:59 23:59 23:59 23:59 Weight 66.678 kg Constitutional Constitutional: no acute distress and cooperative *Routine HEENT Exam Head: Present normocephalic Eye: Present EOMI and PERRL ENT: Present mucous membranes moist *Routine Neck Exam Neck: Present supple; Absent lymphadenopathy *Routine Respiratory Exam Respiratory: Present CTA bilaterally; Absent respiratory distress, rhonchi, wheezes or crackles *Routine Cardiovascular Exam Cardiovascular: Present bradycardia Comments: Regular rhythm, occasional PVCs *Routine Abdominal Exam Abdominal: Present soft and normoactive bowel sounds; Absent tenderness *Routine Rectal Exam Rectal:: deferred *Routine Genitalia Exam Genitalia:: deferred *Routine Extremities Exam Extremities: Absent cyanosis, clubbing or edema *Routine Skin Exam Skin: Present warm; Absent rash *Routine Neurological Exam Neurological: Present alert, oriented X3 and moving all extremities; Absent altered mental status Assessment and Plan *Assessment and plan (1) ST elevation (STEMI) myocardial infarction: Status: Acute Category: Medical Code(s): I21.3 - ST elevation (STEMI) myocardial infarction of unspecified site (2) Complete heart block: Status: Acute Category: Medical Code(s): I44.2 - Atrioventricular block, complete (3) LV dysfunction: Status: Acute Category: Medical Code(s): I51.9 - Heart disease, unspecified (4) HTN (hypertension): Status: Acute Category: Medical Code(s): I10 - Essential (primary) hypertension (5) Hyperglycemia: Status: Acute Category: Medical Code(s): R73.9 - Hyperglycemia, unspecified Plan Ms. Domingo is a 69-year-old female who presented with a STEMI. Discussed case with ER physician and cardiology, both request admission after heart cath. Medicine agreed to admit for further management. Will monitor on telemetry for 48 hours, necessitating hospitalization for at least 2 midnights. Close monitoring due to high risk for fatal arrhythmias post STEMI. Problems addressed as follows: CAD STEMI Transient third-degree heart block -EKG per my review shows ST elevations in anterior and lateral leads. Taken to [facility] [employer], 100% RCA lesion with 70% LAD lesion. Received 3 stents. EF reduced on ventriculogram 35 to 40%. -Echo pending, evaluate for need for LifeVest prior to discharge home -Continuous telemetry, monitor for arrhythmias, had heart block on arrival -Holding beta-blockers in the setting of heart block/bradycardia. -Initiate Lipitor 80 mg nightly and irbesartan 75 mg daily. -Continue aspirin 81 mg daily and Brilinta 90 mg twice daily -Due to bradycardia, will need 2-week monitor at discharge -Repeat CBC, CMP, magnesium ordered for the morning. -BUN 21, creatinine 1.3, monitor for change. Unsure if this is chronic or MARYURI History of CVA in 2007. No residual deficits. Monitor on DAPT therapy Hyperglycemia of 200 on arrival. History of diabetes but improved with diet and exercise and weight loss. Repeat A1c pending. Continue sliding scale insulin with fingersticks ACHS -Anticipate initiation of Farxiga for heart failure as above as well as hyperglycemia, prior to discharge Full code Gluten-free, low-carb cardiac diet Heparinized in [employer]
--- NOTE | 2024-08-03 10:32 | SUR.PHASEII ---
1015: radial band removed, manual pressure applied to radial artery, sterile 4x4 gauze applied 1030: 4F sheath removed from right ulnar artery, TR band applied to ulnar, 15ml of air in band. Pt wrist is pink and warm, good cap refill, report given to Meredith Escalona
--- NOTE | 2024-08-03 10:34 | SUR.PHASEII ---
called report to sheryl baltazar
--- NOTE | 2024-08-03 11:54 | CA_ITS ---
APPROVED REPORT EXAM: Comprehensive 2D, Doppler, and color-flow Echocardiogram Air Sampling And Monitoring: Eveline James RVT Ht: 4 ft 11 in Wt: 147lbs BSA: 1.62 BP: 117/60 mmHg Indications: STEMI,HTN,DM,EF OF 35-40% ON CATH THIS AM 2D Dimensions IVSd 0.82 cm F: 0.6-1.0 LVEF (Visual) 46.20 % PWd 0.80 cm F: 0.6 - 1.0 LA Volume 84.20 mL LVDd 5.44 cm F: 3.9 - 5.3 LA Volume Index 51.98 mL/m2 (M/F) 16-34 LVDs 4.17 cm F: 2.2 - 3.5 M-Mode Dimensions RVDd 2.21 cm (0.9-2.6) LA Diam 4.20 cm (1.9-4.0) LVDd 4.81 cm (3.5-5.7) IVSd 0.74 cm (0.6-1.1) PWd 0.50 cm (0.6-1.1) EDV (Teich) 108.00 mL LV Diastology E Decel Time 150 (160-240 msec) E/A Ratio 0.7 Aortic Valve EB Index 1.72 cm2/m2 AoV Peak Jeremy. 138.0 (50-130 cm/s) AO Peak GR. 7.70 mmHg AO Mean GR. 4.20 (<5 mmHg) AO VTI 25.1 (18-25 cm) EB (VTI) 2.86 (2.5-4.5 cm2) Mitral Valve MV E Max Jeremy. 77.0 (40-130 cm/s) MV A Velocity 114.0 (40-130 cm/s) E/A Ratio 0.68 MV PHT 44.0 ms Pulmonary Valve PV Peak Velocity 115.0 (50-150 cm/s) Left Ventricle The left ventricle is normal size. Left ventricular systolic function is moderate to severely decreased. There is increased LV wall thickness. There is near akinesis of the inferior, inferolateral, and inferoseptal LV rodriguez. Grade 2 diastolic dysfunction. LVEF is 30% Right Ventricle The right ventricle is normal size. The right ventricular systolic function is normal. Atria The left atrium is moderately dilated. The right atrium size is normal. There is no Doppler evidence of interatrial shunt. Aortic Valve The aortic valve is mildly thickened. There is no aortic valvular stenosis. Trace aortic regurgitation. Mitral Valve The mitral valve is mildly thickened. No evidence of mitral valve stenosis. Trace mitral regurgitation. Tricuspid Valve The tricuspid valve leaflets are thin and pliable. Trace tricuspid regurgitation. There is insufficient TR jet to estimate RVSP. Pulmonic Valve The pulmonary valve is normal in structure. Trace pulmonic regurgitation. The ascending aorta is not well-visualized. Great Vessels The aortic root is normal in size. IVC is normal in size and collapses >50% with inspiration. Pericardium There is no pericardial effusion. Other Information Study Quality: Fair Conclusion Moderate to severe reduction in LV systolic function (LVEF 30%). Near akinesis of the inferior, inferolateral, and inferoseptal LV rodriguez. Moderate LA dilation. No significant valvular stenosis or regurgitation. Electronically signed by : Diamond Flores MD 08/04/2024 13:24:32
--- NOTE | 2024-08-03 12:46 | EXP.CARD.CON ---
History of Present Illness History of Present Illness Consult date: 08/03/24 Requesting physician: Gary Raymond Consult reason: chest pain Chief complaint: chest pain, weakness History of present illness: 69 yo WF without known CVD but a history of hemorrhagic CVA approximately 8 years ago, DM-II, Htn. Pt presented to ED with assistance of her today with complaints of chest tightness, jaw pain, and hurting in both arms. Symptoms woke her from sleep, were constant, and not improved with anything. In ED she was found to have IW-STEMI on EKG as well as completel heart block. Pt was taken emergently to lift slab operator and had stenting of culprit vessel RCA. LAD and OM have dz which will need to be addressed later. EF on LV gram was 35-40% Pt had procedural complication of stent embolizing to axiallary artery which required additional approach through ulnar artery (see cath report for details). Pt was transferred to telemetry floor in stable condition in sinus bradycardia - 40s. She reports feeling much better than on presentation. [facility] Disclaimer: The information contained in this section may have been updated after the patient was seen, as this information can be updated by other users. Medical History Stroke Hernia Surgical History H/O: section Social History Smoking Status: Never smoker alcohol intake: never substance use type: denies use current occupational status: retired Travel in the last 8 weeks: None household members: spouse housing: house Review of Systems Constitutional Constitutional: Denies fatigue and Reports weakness Eyes Eyes: Denies loss of vision ENT Ears, Nose, Mouth, and Throat: Denies hearing loss and Denies vertigo *Cardiovascular Cardiovascular: Reports chest pain, Reports dyspnea and Denies syncope *Respiratory Respiratory: Denies cough and Reports dyspnea *Gastrointestinal Gastrointestinal: Denies change in stool character, Denies nausea and Denies vomiting *Musculoskeletal Musculoskeletal: Denies muscle weakness Integumentary/Breasts Skin/Breast: Denies changing lesions *Neurologic Neurologic: Denies loss of vision, Denies syncope, Denies vertigo and Reports weakness Endocrine Endocrine: Denies fatigue Exam Data for Last 24 hours Vital signs and Labs for Last 24 Hours: Temp Pulse Resp BP Pulse Ox O2 Del Method 97.0 F L 50 L 18 117/60 95 Room Air 08/03/24 07:07 08/03/24 12:00 08/03/24 12:00 08/03/24 12:00 08/03/24 12:00 08/03/24 12:00 Laboratory Results - last 24 hr 08/03/24 06:50: WBC 8.0, RBC 4.84, Hgb 14.6, Hct 42.8, MCV 88.5, MCH 30.1, MCHC 34.0, RDW 13.6, Plt Count 284, MPV 7.1 L, Neut % (Auto) 43.0, Lymph % (Auto) 49.8, Esmeralda % (Auto) 4.7, Eos % (Auto) 1.6, Baso % (Auto) 0.9, Neut # (Auto) 3.4, Lymph # (Auto) 4.0, Esmeralda # (Auto) 0.4, Eos # (Auto) 0.1, Baso # (Auto) 0.1, PT 10.2, INR 0.90, APTT 25.2, Sodium 139, Potassium 3.7, Chloride 108 H, Carbon Dioxide 24, Anion Gap 10.7, BUN 21 H, Creatinine 1.30 H, Estimated Creat Clear 43, Estimated GFR 41 L, Est GFR ( Amer) 49 L, Glucose 209 H, Calcium 9.5, Total Bilirubin 0.8, AST 26, ALT 23, Alkaline Phosphatase 104, Troponin I 0.02, Total Protein 6.4, Albumin 3.9, Globulin 2.5, Albumin/Globulin Ratio 1.6 I & O for Last 24 hours: Intake & Output 07/31/24 08/01/24 08/02/24 08/03/24 23:59 23:59 23:59 23:59 Weight 147 lb Meds Home Medications and Allergies Home Medications ?Medication ?Instructions ?Recorded ?Confirmed ?Type lancets 33 gauge (M[employer]il MedicalTouch Delica #100 ea 05/01/21 08/03/24 Rx Plus Lancet) blood sugar diagnostic (Mardil MedicalTouch #100 ea 09/11/21 08/03/24 Rx Ultra Test strips) amlodipine 5 mg tablet (Norvasc) 5 mg PO HS #30 tabs 05/23/22 08/03/24 Rx losartan 50 mg tablet 50 mg PO QODHS 08/03/24 08/03/24 History New Prescriptions to Start Prescriptions: Allergies Allergy/AdvReac Type Severity Reaction Status Date / Time lisinopril AdvReac Mild cough Verified 08/03/24 07:29 Assessment and Plan *Assessment and plan (1) ST elevation (STEMI) myocardial infarction: Status: Acute Category: Medical Code(s): I21.3 - ST elevation (STEMI) myocardial infarction of unspecified site (2) Complete heart block: Status: Acute Category: Medical Code(s): I44.2 - Atrioventricular block, complete (3) LV dysfunction: Status: Acute Category: Medical Code(s): I51.9 - Heart disease, unspecified Plan MV-CAD s/p IW-STEMI 08/03 - new dx this admission - LHC: 100% RCA stented. LAD 70% EF 35-40% - ECHO - pending - Cont ASA, Brilinta - No BB due to bradcardia - Add Atorvastatin 80 and Irbesartan 75mg Transient 3rd degree HB - in setting of IW-STEMI - HB resolved post stenting, pt now has SB Sinus Bradycardia - 40s at rest - cont to monitor on tele - will need 2 week monitor at DC - avoid AVB for now Hx of hemorrhagic CVA 2007 - no residual effects - monitor closely on DAPT DM-II - resolved with diet per pt - will check A1C *Pt is stable following cath. Will pay close attention to RUE as she had both radial and ulnar access. Monitor on tele for at least 48 hours. ECHO pending - further plans pending results.
[2024-08-03 13:29] LABS: CATHL Activated Clotting Time 294 SEC (74-125)
[2024-08-03 13:29] LABS: CATHL Activated Clotting Time 360 SEC (74-125)
[2024-08-03] MEDS: IOPAMIDOL-370 (76%);100ML BOTTLE 50 ML IV (13:41)
[2024-08-03 16:15] LABS: HIV (1&2) Antibody Rapid NONREACTIVE (NONREACTIVE)
[2024-08-03] MEDS: ATORVASTATIN 40MG TABLET 80 MG PO (20:26)
[2024-08-03] MEDS: PT OWN MED *LOSARTAN 50 MG TAB 1 EACH PO (20:26)
[2024-08-03 21:12] LABS: POC Glucose,Bedside 213 (70-110)
--- NOTE | 2024-08-03 22:46 | ECG_ITS ---
APPROVED REPORT Exam: Resting ECG HR:52 bpm ECG Measurements Heart Rate 52 AXES WI 334 P 75 QRSd 84 QRS -21 QT 467 T 244 QTc 446 Conclusion INFERIOR MYOCARDIAL INFARCTION , PROBABLY RECENT [40+ ms Q WAVE AND/OR ST/T ABNORMALITY IN II/aVF] ANTEROLATERAL MYOCARDIAL INFARCTION , PROBABLY RECENT [40+ ms Q WAVE IN I/aVL/V3-V6] ACUTE AR UNCONFIRMED REPORT Electronically signed by : Ha Roy MD 08/04/2024 20:56:40
[2024-08-04] VITALS (9 sets, daily range): BP systolic 121–144; BP diastolic 59–83; PULSE 47–75; RESP 13–20; TEMP 36.6–37.7; O2SAT 96–100; BMI 29.6
--- NOTE | 2024-08-04 01:37 | PC.NURSE ---
Pt ambulated to bathroom and tolerated well. Pt denies CP, SOA, dizziness, and nausea. Reports she feels much better, is slightly weak. Pt remains ted on tele with occasional PVC's, PAC's and 1st degree AV block. HR mid-high 40's to high 50's. Dressing to right wrist in place. Small amount of bruising noted around dressing. Pts temp has been 99.8 and 99.9 tonight. Pt states she does not want tylenol, that her temp will come down on its own. Ysabel ORDAZ aware. Removed some blankets off of pt and turned thermostat down in room.
--- NOTE | 2024-08-04 03:54 | PC.NURSE ---
pt ambulated to bathroom and tolerated well. no changes in assessment t/o the night. pt has no complaints. call light in reach, no needs at this time.
[2024-08-04 06:26] LABS: POC Glucose,Bedside 110 (70-110)
[2024-08-04 06:41] LABS: Basophils % 0.4 % (0.1-2.0); Eosinophils # 0.1 K/mm3 (0.0-0.4); Eosinophils % 0.9 % (0.1-12.0); Hematocrit 37.1 % (37.0-47.0); Lymphocytes # 2.2 K/mm3 (0.7-4.5); Lymphocytes % 29.6 % (10-50); Mean Corpuscular HGB Conc 33.5 g/dL (31.8-35.4); Mean Corpuscular Hemoglobin 29.8 pg (27.0-31.2); Mean Platelet Volume 7.1 fl (7.4-10.4); Monocytes # 0.5 K/mm3 (0.1-1.0); Monocytes % 6.9 % (1.7-9.3); Neutrophils # 4.6 K/mm3 (1.8-7.8); Neutrophils % 62.2 % (37.0-80.0); Platelet Count 204 K/mm3 (142-424); Red Blood Count 4.17 M/mm3 (4.20-5.40); White Blood Count 7.4 K/mm3 (4.8-10.8)
[2024-08-04 06:43] LABS: Anion Gap 6.5 mEq/L (5-15); Blood Urea Nitrogen 15 mg/dl (7-17); Calcium 8.5 mg/dl (8.4-10.2); Carbon Dioxide 26 mmol/L (22.0-30.0); Chloride 110 mmol/L (98-107); Creatinine Clearance Estimated 52 mL/min (50-200); Estimated Glomerular Filt Rate 49 ml/min (>60); GFR (African American) 60 ML/MIN (>60); Glucose 116 mg/dl (74-100); Potassium 3.5 mmoL/L (3.5-5.1); Sodium 139 mmol/L (136-145)
[2024-08-04 07:08] LABS: Thyroid Stimulating Hormone 0.98 uIU/mL (0.465-4.68)
[2024-08-04 07:29] LABS: Hemoglobin 12.4 g/dL (12.2-16.2)
[2024-08-04 08:01] LABS: Chol/HDL Ratio 4.2 (1-3.5); Cholesterol 181 mg/dl (140-200); HDL Cholesterol 43 mg/dl (40-60); Triglycerides 152 mg/dl (30-150); VLDL Cholesterol 30 mg/dL (0-40)
[2024-08-04 08:12] LABS: Direct LDL Cholesterol 90.93 mg/dL (100-129)
[2024-08-04 08:20] LABS: HCV Ab Non Reactive (Non Reactive)
[2024-08-04] MEDS: ASPIRIN EC 81MG TABLET 81 MG PO (08:37)
[2024-08-04] MEDS: TICAGRELOR 90MG TABLET 90 MG PO ×2 (08:37→20:44)
--- NOTE | 2024-08-04 09:06 | HMH.PTEV ---
Physical Therapy Evaluation Rehab PT IP Evaluation Start: 08/03/24 15:45 Freq: ONCE Status: Active Protocol: Document 08/04/24 08:52 OSMAN (Rec: 08/04/24 09:06 OSMAN [id number]) Subjective/History History History Per H&P: Ms. Domingo is a pleasant 69-year-old female with history of obesity, diabetes, and hypertension. Remote history of strokes with no residual deficits. Over the past few years has lost 100 pounds through diet and exercise. Continues to take medication for blood pressure every other day. On no treatment for diabetes at this time as it improved after losing weight. She has had intermittent fatigue and an episode of chest discomfort about a month and a half ago. Has been trying to participate in physical activity including water fitness but felt more fatigued last week and had to take regular breaks. She presented to the ER emergently this morning after awaking about 4 AM from sleep and having chest discomfort, pain into her jaw and shoulder. She proceeded to have an episode of diarrhea and emesis and pain did not get better. On arrival to the ER, EKG obtained showing mariana STEMI with ST elevation in anterior and lateral leads. College Professor activated and taken urgently for percutaneous intervention. Patient found to have multivessel disease with placement of 3 stents. Admitted for inpatient treatment and monitoring for at least 48 hours on telemetry . Subjective Subjective Pt reports I exercise every day, I don't really feel weak . Pt reports she lives with her and 3 cats in a tri-level home (with railing for steps). Pt regularly exercises at the [facility] and walks with her as well . Pt reports she plans to return to her regular exercise regimen within 1-2 weeks. Pt is still driving, IND with all mobility, and does not use an AD. New diagnosis of cancer in past 12 No months? Rehab PT IP Eval Objective Appearance Patient Behavior Appropriate,Cooperative Patient Orientation Situation Difficulty following instructions none Speech Pattern Clear Ambulation Patient Able to Ambulate Yes Ambulation Observation IP General Gait Pattern Observation No Deviations/Normal Ambulation Distance (feet) 40 Ambulation Assistive Device None Ambulation Ability Independent Balance Ability to Arise Able, uses arms to help Sitting Balance Steady, safe Standing Balance Narrow stance w/o support Dynamic Sitting Balance Ability Normal Dynamic Standing Balance Ability Good Transfers Bed Transfer Ability Independent Sit to Stand Bed Transfer Ability Independent Rehab PT IP prob,goals,plan Problems Date of Evaluation: 08/04/24 Rehab Potential Rehab Potential Innapropriate for Skilled Therapy Discharge Plan PT Discharge Plan Pt is safe to return home when deemed medically necessary. Pt may benefit from outpatient cardiac rehab/therapy d/t recent cardiac event but pt denies need for PT upon d/c. Pt not appropriate for skilled acute care PT d/t being independent with her mobility. Eval Complexity Eval Charge Codes 91020 - Moderate Complexity PHYSICIAN CERTIFICATION: I certify the specified therapy services for Patricia Domingo are required, authorized, and reviewed every 30 days.
[2024-08-04 09:43] LABS: Hemoglobin A1C 5.7 % (4.0-6.0)
--- NOTE | 2024-08-04 09:48 | HMH.OTEV ---
OT Inpatient Evaluation Rehab OT IP Evaluation Start: 08/03/24 15:45 Freq: ONCE Status: Active Protocol: Document 08/04/24 09:43 ARSALVA (Rec: 08/04/24 09:47 [facility] [id number]) Rehab OT IP Assessment Subjective History Pt oriented x 3 on arrival. Pt agreeable to engage in therapy evaluation. Pt was admitted to [facility] on 08/03/24 due to a STEMI. History and physical report: Ms. Domingo is a pleasant 69-year-old female with history of obesity, diabetes, and hypertension. Remote history of strokes with no residual deficits. Over the past few years has lost 100 pounds through diet and exercise. Continues to take medication for blood pressure every other day. On no treatment for diabetes at this time as it improved after losing weight. She has had intermittent fatigue and an episode of chest discomfort about a month and a half ago. Has been trying to participate in physical activity including water fitness but felt more fatigued last week and had to take regular breaks. She presented to the ER emergently this morning after awaking about 4 AM from sleep and having chest discomfort, pain into her jaw and shoulder. She proceeded to have an episode of diarrhea and emesis and pain did not get better. On arrival to the ER, EKG obtained showing mariana STEMI with ST elevation in anterior and lateral leads. Field Marketing Associate activated and taken urgently for percutaneous intervention. Patient found to have multivessel disease with placement of 3 stents. Admitted for inpatient treatment and monitoring for at least 48 hours on telemetry . Subjective I can do whatever I need to. Prior to being in the hospital , pt was independent with all ADLs and IADLs. Pt also still drove. She did not require any type of AE during functional transfers. Pt was a very active individual that completely daily exercise with walking and water aerobics. Objective Patient Orientation Person,Place,Birthday Right Upper Extremity Gross ROM WFL Left Upper Extremity Gross ROM WFL Bed Mobility bed mobility-scooting,bed mobility - supine/sit Assist Level Supervision/Stand by Transfer Training Sit/Stand Transfer Assist Level Supervision/Stand by Chair Transfer Ability Supervision/Stand by Chair Transfer Technique Sit to/from Ambulatory Chair Transfer Assistive Devices None Lower Body Dressing Ability Standby Assistance Performing Toilet Hygiene Ability Standby Assistance Overall Commode/Toilet Transfer Ability Standby Assistance Commode/Toilet Transfer Technique Sit to/from Ambulatory Rehab OT IP prob,goals,plan Problems Date of Evaluation: 08/04/24 Rehab Potential Rehab Potential Innapropriate for Skilled Therapy Discharge Plan OT Discharge Plan Pt appears to be at her baseline with functional transfers and ADL independence . Pt can return home with once she is medically stable per physician. Therapist recommends outpatient cardiac therapy after discharge. Eval Complexity Eval Charge Codes 77704 - Low Complexity PHYSICIAN CERTIFICATION: I certify the specified therapy services for Patricia Domingo are required, authorized, and reviewed every 30 days.
--- NOTE | 2024-08-04 10:18 | EXP.CARD.PN ---
Subjective Subjective Date: 08/04/24 Time: 09:30 Interval history: No events overnight, pt reports feeling 'great.' Tele shows HR now in 70s, occasional PVC and short runs of NSVT noted. Prelim ECHO shows reduced EF Exam Data for Last 24 hours Vital signs and Labs for Last 24 Hours: Temp Pulse Resp BP Pulse Ox O2 Del Method 98.9 F 75 20 126/75 100 Room Air 08/04/24 04:00 08/04/24 10:00 08/04/24 10:00 08/04/24 10:00 08/04/24 10:00 08/04/24 10:00 Laboratory Results - last 24 hr 08/03/24 06:50: Hepatitis C Antibody Non reactive, HIV 1&2 Antibody Rapid Nonreactive 08/03/24 08:40: Activated Clotting Time 360 H* 08/03/24 09:16: Activated Clotting Time 294 H* 08/03/24 20:33: POC Glucose 213 H 08/04/24 05:25: WBC 7.4, RBC 4.17 L, Hgb 12.4 D, Hct 37.1, MCV 89.0, MCH 29.8, MCHC 33.5, RDW 14.0, Plt Count 204 D, MPV 7.1 L, Neut % (Auto) 62.2, Lymph % (Auto) 29.6, [place] % (Auto) 6.9, Eos % (Auto) 0.9, Baso % (Auto) 0.4, Neut # (Auto) 4.6, Lymph # (Auto) 2.2, [place] # (Auto) 0.5, Eos # (Auto) 0.1, Baso # (Auto) 0.0, Sodium 139, Potassium 3.5, Chloride 110 H, Carbon Dioxide 26, Anion Gap 6.5, BUN 15 D, Creatinine 1.10 H, Estimated Creat Clear 52, Estimated GFR 49 L, Est GFR ( Amer) 60 D, Glucose 116 H D, Hemoglobin A1c 5.7, Calcium 8.5, Triglycerides 152 H, Cholesterol 181, LDL Cholesterol Direct 90.93 L, VLDL Cholesterol 30, HDL Cholesterol 43, Cholesterol/HDL Ratio 4.2 H, TSH 0.98 08/04/24 06:19: POC Glucose 110 I & O for Last 24 hours: Intake & Output 08/01/24 08/02/24 08/03/24 11/26/24 23:59 23:59 23:59 23:59 Intake Total 320 / 320 270 / 270 Output Total 0 / 0 0 / 0 Balance 320 / 320 270 / 270 Weight 147 lb 146 lb 15.927 oz Constitutional Constitutional: no acute distress and cooperative *Routine HEENT Exam Eye: Present PERRL *Routine Respiratory Exam Respiratory: Present CTA bilaterally; Absent accessory muscle use, wheezes or crackles *Routine Cardiovascular Exam Cardiovascular: Present RRR, Normal S1 and Normal S2; Absent murmur, gallop or rubs *Routine Abdominal Exam Abdominal: Present soft; Absent tenderness *Routine Extremities Exam Extremities: Present pulses intact; Absent cyanosis or edema *Routine Skin Exam Skin: Present intact; Absent erythema or wounds *Routine Neurological Exam Neurological: Present alert and oriented X3 Routine Psychiatric Exam Psychiatric: Present cooperative Progress Note: A&P Assessment and plan (1) ST elevation (STEMI) myocardial infarction: Status: Acute (2) Complete heart block: Status: Acute (3) LV dysfunction: Status: Acute (4) HTN (hypertension): Status: Acute (5) Hyperglycemia: Status: Acute Assessment and Plan Assessment and Plan for All Diagnoses:: MV-CAD s/p IW-STEMI 08/03 - new dx this admission - [facility]: 100% RCA stented. LAD 70% (will stage PCI later) EF 35-40% per LV gram - ECHO PRELIM - reduced EF - Cont ASA, Brilinta - Cont Atorvastatin 80 and Irbesartan 75mg - HR improved - add Toprol XL 25 HFrEF - LV gram on [facility] showed EF 35-40 - PRELIM ECHO shows reduced EF - start Entresto, Farxiga, Toprol Xl - consider Lifevest per final ECHO read PVCs/NSVT - noted on tele 08/04 - HB and SB resolved, will start Toprol Xl 25 Transient 3rd degree HB - in setting of IW-STEMI - HB resolved post stenting Sinus Bradycardia - 40s at rest post cath - resolved 08/04 Hx of hemorrhagic CVA 2007 - no residual effects - monitor closely on DAPT Hx of DM-II - resolved with diet per pt - A1C 5.7 HLD, Goal <55 - LDL 90 - pt started on high dose statin Addendum: ECHO shows EF 30% Discussed LifeVest pt and she is agreeable. Anticipate DC tomorrow.
[2024-08-04] MEDS: METOPROLOL SUCCINATE XL 25MG TABLET 25 MG PO (10:30)
[2024-08-04] MEDS: DAPAGLIFLOZIN PROPANEDIOL 10 MG TABLET PO (10:33)
[2024-08-04 11:52] LABS: POC Glucose,Bedside 141 (70-110)
[2024-08-04 16:43] LABS: POC Glucose,Bedside 103 (70-110)
--- NOTE | 2024-08-04 17:17 | PC.NURSE ---
Cardiology notified of 2-3 beat runs of v tach at 1223, no new changes. Patient not symptomatic and states she feels great, better than she did before. Patient remained on room air. Patient able to sit in chair for most of shift. No swelling or pain noted at radial and ulnar cath site. 4 beat run of v tach noted at 1706, hospitalist aware. No new changes, patient not symptomatic.
--- NOTE | 2024-08-04 17:46 | EXP.PN ---
Subjective *Date: 08/04/24 *Time: 17:46 Interval history: Patient feels great today, no chest pain, shortness of breath, palpitations. Ambulating without issues Exam Data for Last 24 hours Vital signs and Labs for Last 24 Hours: Temp Pulse Resp BP Pulse Ox O2 Del Method 98 F 71 16 134/83 99 Room Air 08/04/24 16:00 08/04/24 16:00 08/04/24 16:00 08/04/24 16:00 08/04/24 16:00 08/04/24 17:00 Laboratory Results - last 24 hr 08/03/24 06:50: Hepatitis C Antibody Non reactive 08/03/24 20:33: POC Glucose 213 H 08/04/24 05:25: WBC 7.4, RBC 4.17 L, Hgb 12.4 D, Hct 37.1, MCV 89.0, MCH 29.8, MCHC 33.5, RDW 14.0, Plt Count 204 D, MPV 7.1 L, Neut % (Auto) 62.2, Lymph % (Auto) 29.6, [place] % (Auto) 6.9, Eos % (Auto) 0.9, Baso % (Auto) 0.4, Neut # (Auto) 4.6, Lymph # (Auto) 2.2, [place] # (Auto) 0.5, Eos # (Auto) 0.1, Baso # (Auto) 0.0, Sodium 139, Potassium 3.5, Chloride 110 H, Carbon Dioxide 26, Anion Gap 6.5, BUN 15 D, Creatinine 1.10 H, Estimated Creat Clear 52, Estimated GFR 49 L, Est GFR ( Amer) 60 D, Glucose 116 H D, Hemoglobin A1c 5.7, Calcium 8.5, Magnesium 2.0, Triglycerides 152 H, Cholesterol 181, LDL Cholesterol Direct 90.93 L, VLDL Cholesterol 30, HDL Cholesterol 43, Cholesterol/HDL Ratio 4.2 H, TSH 0.98 08/04/24 06:19: POC Glucose 110 08/04/24 11:37: POC Glucose 141 H 08/04/24 16:26: POC Glucose 103 I & O for Last 24 hours: Intake & Output 08/01/24 08/02/24 08/03/24 08/04/24 23:59 23:59 23:59 23:59 Intake Total 320 / 320 270 / 270 Output Total 0 / 0 0 / 0 Balance 320 / 320 270 / 270 Weight 66.678 kg 66.676 kg Constitutional Constitutional: no acute distress and cooperative *Routine HEENT Exam Eye: Present PERRL *Routine Respiratory Exam Respiratory: Present CTA bilaterally; Absent accessory muscle use, wheezes or crackles *Routine Cardiovascular Exam Cardiovascular: Present RRR, Normal S1 and Normal S2; Absent murmur, gallop or rubs *Routine Abdominal Exam Abdominal: Present soft; Absent tenderness *Routine Extremities Exam Extremities: Present pulses intact; Absent cyanosis or edema *Routine Skin Exam Skin: Present intact; Absent erythema or wounds *Routine Neurological Exam Neurological: Present alert and oriented X3 Routine Psychiatric Exam Psychiatric: Present cooperative Assessment and Plan *Assessment and plan (1) ST elevation (STEMI) myocardial infarction: Status: Acute Category: Medical Code(s): I21.3 - ST elevation (STEMI) myocardial infarction of unspecified site (2) Complete heart block: Status: Acute Category: Medical Code(s): I44.2 - Atrioventricular block, complete (3) LV dysfunction: Status: Acute Category: Medical Code(s): I51.9 - Heart disease, unspecified (4) HTN (hypertension): Status: Acute Category: Medical Code(s): I10 - Essential (primary) hypertension (5) Hyperglycemia: Status: Acute Category: Medical Code(s): R73.9 - Hyperglycemia, unspecified Plan Ms. Domingo is a 69-year-old female who presented with a STEMI. Discussed case with ER physician and cardiology, both request admission after heart cath. Medicine agreed to admit for further management. Will monitor on telemetry for 48 hours, necessitating hospitalization for at least 2 midnights. Close monitoring due to high risk for fatal arrhythmias post STEMI. Problems addressed as follows: CAD STEMI Transient third-degree heart block Nonsustained V. tach ? S/p PCI with 2 stents to the 100% RCA lesion and 1 stent to 70% LAD lesion. ? ECHO 08/04/2024 reveals LVEF 30% with akinetic inferior, inferolateral, inferoseptal LV rodriguez. Moderate LA dilation. ? Cardiology consulted, started Entresto, Farxiga, metoprolol succinate. Will need LifeVest before discharge. ? Continue aspirin 81 mg, Brilinta 90 mg twice daily, atorvastatin 80 mg. ? Continuous telemetry, monitor for arrhythmias, had heart block on arrival. Had 2 episodes of nonsustained V. tach, possibly from reperfusion with above stents. Patient is completely asymptomatic during these episodes. Continue metoprolol as above. ? K >4, Mg >2. - Due to initial bradycardia, will need 2-week monitor at discharge History of CVA in 2007. No residual deficits. Monitor on DAPT therapy. Hyperglycemia of 200 on arrival. History of diabetes but improved with diet and exercise and weight loss. Repeat A1c 5.7. Continue sliding scale insulin with fingersticks ACHS. Started Farxiga as above. Full code Gluten-free, low-carb cardiac diet Lovenox 40 mg
--- NOTE | 2024-08-04 18:18 | PC.NURSE ---
Dr. Young notified of runs of v tach at 1806. Patient non symptomatic, bp 129/67 hr 56. No new orders at this time
[2024-08-04 20:12] LABS: POC Glucose,Bedside 272 (70-110)
[2024-08-04] MEDS: POTASSIUM CHLORIDE 20MEQ TAB 40 MEQ PO (20:44)
[2024-08-04] MEDS: ATORVASTATIN 40MG TABLET 80 MG PO (20:44)
[2024-08-04] MEDS: SACUBITRIL/VALSARTAN 24-26MG TABLET 1 EACH PO (20:44)
[2024-08-05] VITALS: BP 143/50; PULSE 56; PULSE 70; RESP 17; TEMP 37.3; O2SAT 100
[2024-08-05 04:00] VITALS: BP 121/70; PULSE 60; PULSE 68; RESP 18; TEMP 36.8; O2SAT 98; BMI 30.2
[2024-08-05 06:22] LABS: Basophils % 0.6 % (0.1-2.0); Eosinophils # 0.1 K/mm3 (0.0-0.4); Eosinophils % 1.4 % (0.1-12.0); Hematocrit 41.2 % (37.0-47.0); Hemoglobin 13.9 g/dL (12.2-16.2); Lymphocytes # 1.8 K/mm3 (0.7-4.5); Lymphocytes % 26.4 % (10-50); Mean Corpuscular HGB Conc 33.7 g/dL (31.8-35.4); Mean Corpuscular Hemoglobin 29.5 pg (27.0-31.2); Mean Corpuscular Volume 87.7 fl (81-99); Mean Platelet Volume 7.2 fl (7.4-10.4); Monocytes # 0.4 K/mm3 (0.1-1.0); Neutrophils # 4.5 K/mm3 (1.8-7.8); Neutrophils % 65.6 % (37.0-80.0); Platelet Count 205 K/mm3 (142-424); Red Cell Distribution Width 13.9 % (11.5-17.5); White Blood Count 6.8 K/mm3 (4.8-10.8)
[2024-08-05 06:24] LABS: Alanine Aminotransferase 33 U/L (12-78); Albumin Level 3.6 g/dl (3.5-5.0); Albumin/Globulin Ratio 1.4 (1.1-1.8); Alkaline Phosphatase 95 U/L (38-126); Aspartate Amino Transferase 103 U/L (14-36); Bilirubin,Total 1.4 mg/dl (0.2-1.3); Blood Urea Nitrogen 14 mg/dl (7-17); Calcium 8.8 mg/dl (8.4-10.2); Carbon Dioxide 20 mmol/L (22.0-30.0); Chloride 111 mmol/L (98-107); Creatinine Clearance Estimated 58 mL/min (50-200); Estimated Glomerular Filt Rate 55 ml/min (>60); GFR (African American) 67 ML/MIN (>60); Globulin 2.6 g/dL (1.3-3.2); Glucose 107 mg/dl (74-100); Magnesium 2.1 mg/dl (1.6-2.3); Sodium 139 mmol/L (136-145); Total Protein,Serum 6.2 g/dl (6.3-8.2)
[2024-08-05 08:00] VITALS: BP 139/75; PULSE 69; PULSE 80; RESP 16; TEMP 36.7; O2SAT 98
[2024-08-05] MEDS: DAPAGLIFLOZIN PROPANEDIOL 10 MG TABLET PO (08:22)
[2024-08-05] MEDS: METOPROLOL SUCCINATE XL 25MG TABLET 25 MG PO (08:22)
[2024-08-05] MEDS: ASPIRIN EC 81MG TABLET 81 MG PO (08:22)
[2024-08-05] MEDS: SACUBITRIL/VALSARTAN 24-26MG TABLET 1 EACH PO (08:22)
[2024-08-05] MEDS: TICAGRELOR 90MG TABLET 90 MG PO (08:22)
--- NOTE | 2024-08-05 10:49 | P.PN_ITS ---
Subjective Subjective Date: 08/05/24 Time: 09:30 Interval history: Pt continues to have short runs of NSVT up to 7 beats which are asymptomatic. She is tolerating GDMT, labs and vitals stable and she is anxious to get home. LifeVest will be placed this morning per rep. Exam Data for Last 24 hours Vital signs and Labs for Last 24 Hours: Temp Pulse Resp BP Pulse Ox O2 Del Method 98.0 F 69 16 139/75 98 Room Air 08/05/24 08:00 08/05/24 08:00 08/05/24 08:00 08/05/24 08:00 08/05/24 08:00 08/05/24 09:00 Laboratory Results - last 24 hr 08/04/24 05:25: Magnesium 2.0 08/04/24 11:37: POC Glucose 141 H 08/04/24 16:26: POC Glucose 103 08/04/24 20:02: POC Glucose 272 H 08/05/24 05:26: WBC 6.8, RBC 4.70, Hgb 13.9, Hct 41.2, MCV 87.7, MCH 29.5, MCHC 33.7, RDW 13.9, Plt Count 205, MPV 7.2 L, Neut % (Auto) 65.6, Lymph % (Auto) 26.4, [place] % (Auto) 6.0, Eos % (Auto) 1.4, Baso % (Auto) 0.6, Neut # (Auto) 4.5, Lymph # (Auto) 1.8, [place] # (Auto) 0.4, Eos # (Auto) 0.1, Baso # (Auto) 0.0, Sodium 139, Potassium 4.0, Chloride 111 H, Carbon Dioxide 20 L, Anion Gap 12.0, BUN 14, Creatinine 1.00, Estimated Creat Clear 58, Estimated GFR 55 L, Est GFR ( Amer) 67, Glucose 107 H, Calcium 8.8, Magnesium 2.1, Total Bilirubin 1.4 H, AST 103 H D, ALT 33 D, Alkaline Phosphatase 95, Total Protein 6.2 L, Albumin 3.6, Globulin 2.6, Albumin/Globulin Ratio 1.4 I & O for Last 24 hours: Intake & Output 11/24/24 11/25/24 11/26/24 11/27/24 23:59 23:59 23:59 23:59 Intake Total 320 / 320 270 / 750 480 / 480 Output Total 0 / 0 0 / 0 0 / 0 Balance 320 / 320 270 / 750 480 / 480 Weight 147 lb 146 lb 15.927 oz 150 lb 3.2 oz Constitutional Constitutional: no acute distress and cooperative *Routine HEENT Exam Eye: Present PERRL *Routine Respiratory Exam Respiratory: Present CTA bilaterally; Absent accessory muscle use, wheezes or crackles *Routine Cardiovascular Exam Cardiovascular: Present RRR, Normal S1 and Normal S2; Absent murmur, gallop or rubs *Routine Abdominal Exam Abdominal: Present soft; Absent tenderness *Routine Extremities Exam Extremities: Present pulses intact; Absent cyanosis or edema *Routine Skin Exam Skin: Present intact; Absent erythema or wounds *Routine Neurological Exam Neurological: Present alert and oriented X3 Routine Psychiatric Exam Psychiatric: Present cooperative Progress Note: A&P Assessment and plan (1) ST elevation (STEMI) myocardial infarction: Status: Acute (2) Complete heart block: Status: Acute (3) LV dysfunction: Status: Acute (4) HTN (hypertension): Status: Acute (5) Hyperglycemia: Status: Acute (6) NSVT (nonsustained ventricular tachycardia): Status: Acute Assessment and Plan Assessment and Plan for All Diagnoses:: MV-CAD s/p IW-STEMI 08/03 - new dx this admission - [facility]: 100% RCA stented. LAD 70% (will stage PCI later) EF 35-40% per LV gram - ECHO shows EF 30% - Cont ASA, Brilinta, Toprol, Atorvastatin 80, and Entresto - consider staged PCI to LAD as outpatient HFrEF - NYHA = 2-3 - LV gram on [facility] showed EF 35-40 - ECHO shows EF 30% - pt tolerating Entresto, Farxiga, Toprol Xl and she is euvolemic - LifeVest placed this morning PVCs/NSVT - noted on tele 08/04 and 08/05 telemetry - Transient heart block and sinus ted resolved - Cont Toprol XL 25 - Pt will go home with LifeVest for close monitoring of VT Transient 3rd degree HB - in setting of IW-STEMI day of arrival - HB resolved post stenting Sinus Bradycardia - 40s at rest post cath - resolved 08/04 Hx of hemorrhagic CVA 2007 - no residual effects - monitor closely on DAPT Hx of DM-II - resolved with diet per pt - A1C 5.7 HLD, Goal <55 - LDL 90 - pt started on high dose statin Addendum: Pt asymptomatic and stable on GDMT. She can be DC'd home after LifeVest placement today. CV DC Meds: Aspirin 81 mg 1 p.o. daily Brilinta 90 mg 1 p.o. twice daily Atorvastatin 80 mg 1 p.o. daily Toprol-XL 25 mg 1 p.o. daily Entresto 24-26 mg 1 p.o. twice daily Farxiga 10 mg 1 p.o. daily CV follow-up: 2 weeks in our office
--- NOTE | 2024-08-05 12:08 | P.DS_ITS ---
General Admission date:: 08/03/24 HPI HPI HPI: Ms. Domingo is a pleasant 69-year-old female with history of obesity, diabetes, and hypertension. Remote history of strokes with no residual deficits. Over the past few years has lost 100 pounds through diet and exercise. Continues to take medication for blood pressure every other day. On no treatment for diabetes at this time as it improved after losing weight. She has had intermittent fatigue and an episode of chest discomfort about a month and a half ago. Has been trying to participate in physical activity including water fitness but felt more fatigued last week and had to take regular breaks. She presented to the ER emergently this morning after awaking about 4 AM from sleep and having chest discomfort, pain into her jaw and shoulder. She proceeded to have an episode of diarrhea and emesis and pain did not get better. On arrival to the ER, EKG obtained showing mariana STEMI with ST elevation in anterior and lateral leads. Instrument Adjuster activated and taken urgently for percutaneous intervention. Patient found to have multivessel disease with placement of 3 stents. Admitted for inpatient treatment and monitoring for at least 48 hours on telemetry. On evaluation, patient is chest pain-free at this time after her procedure. Resting comfortably in bed. Having occasional PVCs on telemetry with sinus bradycardia. Hospital Course Hospital Course Hospital Course: Ms. Domingo is a 69-year-old female who presented with a STEMI. #CAD #STEMI #Transient third-degree heart block #HFrEF #Nonsustained V. tach ? S/p PCI with 2 stents to the 100% RCA lesion and 1 stent to 70% LAD lesion. - Heartblock resolved after stenting. ? ECHO 08/04/2024 reveals LVEF 30% with akinetic inferior, inferolateral, inferoseptal LV rodriguez. Moderate LA dilation. ? Cardiology consulted, started Entresto, Farxiga, metoprolol succinate. ? Continue aspirin 81 mg, Brilinta 90 mg twice daily, atorvastatin 80 mg. ? Had 2 episodes of nonsustained V. tach, likely from reperfusion with above stents. Patient is completely asymptomatic during these episodes. Continue metoprolol as above. - LifeVest fitted. ? Discharged with the following meds: Aspirin 81 mg 1 p.o. daily Brilinta 90 mg 1 p.o. twice daily Atorvastatin 80 mg 1 p.o. daily Toprol-XL 25 mg 1 p.o. daily Entresto 24-26 mg 1 p.o. twice daily Farxiga 10 mg 1 p.o. daily #History of hemorrhagic CVA in 2007 ? No residual deficits. ? Monitor closely on DAPT therapy. #Hyperglycemia ? Blood glucose 200 on arrival. ? History of diabetes but improved with diet and exercise and weight loss. ? Repeat A1c 5.7. Exam Data for Last 24 hours Vital signs and Labs for Last 24 Hours: Temp Pulse Resp BP Pulse Ox O2 Del Method 98.0 F 69 16 139/75 98 Room Air 08/05/24 08:00 08/05/24 08:00 08/05/24 08:00 08/05/24 08:00 08/05/24 08:00 08/05/24 11:00 Laboratory Results - last 24 hr 08/04/24 05:25: Magnesium 2.0 08/04/24 16:26: POC Glucose 103 08/04/24 20:02: POC Glucose 272 H 08/05/24 05:26: WBC 6.8, RBC 4.70, Hgb 13.9, Hct 41.2, MCV 87.7, MCH 29.5, MCHC 33.7, RDW 13.9, Plt Count 205, MPV 7.2 L, Neut % (Auto) 65.6, Lymph % (Auto) 26.4, [place] % (Auto) 6.0, Eos % (Auto) 1.4, Baso % (Auto) 0.6, Neut # (Auto) 4.5, Lymph # (Auto) 1.8, [place] # (Auto) 0.4, Eos # (Auto) 0.1, Baso # (Auto) 0.0, Sodium 139, Potassium 4.0, Chloride 111 H, Carbon Dioxide 20 L, Anion Gap 12.0, BUN 14, Creatinine 1.00, Estimated Creat Clear 58, Estimated GFR 55 L, Est GFR ( Amer) 67, Glucose 107 H, Calcium 8.8, Magnesium 2.1, Total Bilirubin 1.4 H, AST 103 H D, ALT 33 D, Alkaline Phosphatase 95, Total Protein 6.2 L, Albumin 3.6, Globulin 2.6, Albumin/Globulin Ratio 1.4 I & O for Last 24 hours: Intake & Output 08/02/24 08/03/24 08/04/24 08/05/24 23:59 23:59 23:59 23:59 Intake Total 320 / 320 270 / 750 480 / 480 Output Total 0 / 0 0 / 0 0 / 0 Balance 320 / 320 270 / 750 480 / 480 Weight 66.678 kg 66.676 kg 68.13 kg Constitutional Constitutional: no acute distress *Routine HEENT Exam Head: Present normocephalic Eye: Present EOMI and PERRL ENT: Present mucous membranes moist *Routine Neck Exam Neck: Present supple; Absent lymphadenopathy *Routine Respiratory Exam Respiratory: Present CTA bilaterally *Routine Cardiovascular Exam Cardiovascular: Present RRR *Routine Abdominal Exam Abdominal: Present soft and normoactive bowel sounds; Absent tenderness *Routine Extremities Exam Extremities: Absent cyanosis, clubbing or edema *Routine Skin Exam Skin: Present warm; Absent rash *Routine Neurological Exam Neurological: Present alert and oriented X3 Results Data Completed and Pending Labs on day of discharge: Labs from last 24 hours 08/05/24 08/04/24 08/04/24 05:26 20:02 16:26 WBC 6.8 RBC 4.70 Hgb 13.9 Hct 41.2 MCV 87.7 MCH 29.5 MCHC 33.7 RDW 13.9 Plt Count 205 MPV 7.2 L Neut % (Auto) 65.6 Lymph % (Auto) 26.4 [place] % (Auto) 6.0 Eos % (Auto) 1.4 Baso % (Auto) 0.6 Neut # (Auto) 4.5 Lymph # (Auto) 1.8 [place] # (Auto) 0.4 Eos # (Auto) 0.1 Baso # (Auto) 0.0 Sodium 139 Potassium 4.0 Chloride 111 H Carbon Dioxide 20 L Anion Gap 12.0 BUN 14 Creatinine 1.00 Estimated Creat Clear 58 Estimated GFR 55 L Est GFR ( Amer) 67 Glucose 107 H POC Glucose 272 H 103 Calcium 8.8 Magnesium 2.1 Total Bilirubin 1.4 H AST 103 H D ALT 33 D Alkaline Phosphatase 95 Total Protein 6.2 L Albumin 3.6 Globulin 2.6 Albumin/Globulin Ratio 1.4 08/04/24 05:25 WBC RBC Hgb Hct MCV MCH MCHC RDW Plt Count MPV Neut % (Auto) Lymph % (Auto) [place] % (Auto) Eos % (Auto) Baso % (Auto) Neut # (Auto) Lymph # (Auto) [place] # (Auto) Eos # (Auto) Baso # (Auto) Sodium Potassium Chloride Carbon Dioxide Anion Gap BUN Creatinine Estimated Creat Clear Estimated GFR Est GFR ( Amer) Glucose POC Glucose Calcium Magnesium 2.0 Total Bilirubin AST ALT Alkaline Phosphatase Total Protein Albumin Globulin Albumin/Globulin Ratio DS: Diagnosis Discharge Diagnosis (1) ST elevation (STEMI) myocardial infarction: Status: Acute Code(s): I21.3 - ST elevation (STEMI) myocardial infarction of unspecified site (2) Complete heart block: Status: Acute Code(s): I44.2 - Atrioventricular block, complete (3) LV dysfunction: Status: Acute Code(s): I51.9 - Heart disease, unspecified (4) HTN (hypertension): Status: Acute Code(s): I10 - Essential (primary) hypertension (5) Hyperglycemia: Status: Acute Code(s): R73.9 - Hyperglycemia, unspecified (6) NSVT (nonsustained ventricular tachycardia): Status: Acute Code(s): I47.29 - Other ventricular tachycardia Meds Home Medications and Allergies Home Medications ?Medication ?Instructions ?Recorded ?Confirmed ?Type aspirin 81 mg tablet,delayed 81 mg PO DAILY 30 days #30 tabs 08/05/24 Rx release atorvastatin 40 mg tablet 80 mg (2 x 40 mg) PO HS 30 days 08/05/24 Rx #60 tabs dapagliflozin propanediol 10 mg 10 mg PO DAILY 30 days #30 tabs 08/05/24 Rx tablet (Farxiga) metoprolol succinate 25 mg 25 mg PO DAILY 30 days #30 tabs 08/05/24 Rx tablet,extended release 24 hr sacubitril 24 mg-valsartan 26 mg 1 tab PO BID 30 days #60 tabs 08/05/24 Rx tablet (Entresto) ticagrelor 90 mg tablet (Brilinta) 90 mg PO BID 30 days #60 tabs 08/05/24 Rx New Prescriptions to Start Prescriptions: jessica Espinoza,Matt atorvastatin Alexis,Matt dapagliflozin propanediol [Farxiga] Alexis,Matt metoprolol succinate Alexis,Matt sacubitril-valsartan [Entresto] Alexis,Matt ticagrelor [Brilinta] Alexis,Matt Allergies Allergy/AdvReac Type Severity Reaction Status Date / Time lisinopril AdvReac Mild cough Verified 08/03/24 07:29 Discharge Plan Disposition Patient Disposition: Home, Self-Care Discharge Order Discharge Orders: Discharge Order (Routine); Ordered 08/05/24 Ordered By: Matt Espinoza Follow up Plan Follow up with: Lee Iqbal [Referring] - 08/13/24 10:00 am Alexx Young MD [Staff Physician] - 08/12/24 8:45 am Prescriptions/Medication Reconciliation: New atorvastatin 40 mg Tablet 80 mg PO HS 30 Days Qty: 60 0RF aspirin 81 mg Tablet,Delayed Release (Dr/Ec) 81 mg PO DAILY 30 Days Qty: 30 0RF metoprolol succinate 25 mg Tablet Extended Release 24 Hr 25 mg PO DAILY 30 Days Qty: 30 0RF Brilinta 90 mg Tablet 90 mg PO BID 30 Days Qty: 60 0RF dapagliflozin propanediol [Farxiga] 10 mg Tablet 10 mg PO DAILY 30 Days Qty: 30 0RF Entresto 24-26 mg Tablet 1 tab PO BID 30 Days Qty: 60 0RF Discontinued (DME) lancets [OneTouch Delica Plus Lancet] 33 gauge misc See Rx Instructions .ROUTE .COMPLEX Qty: 100 3RF Dose Instruction: USE 1 TO CHECK GLUCOSE TWICE DAILY Rx Instructions: USE 1 TO CHECK GLUCOSE TWICE DAILY (DME) OneTouch Ultra Test Strip See Rx Instructions .ROUTE .COMPLEX Qty: 100 2RF Dose Instruction: USE 1 STRIP TO CHECK GLUCOSE TWICE DAILY Rx Instructions: USE 1 STRIP TO CHECK GLUCOSE TWICE DAILY amlodipine [Norvasc] 5 mg tablet 5 mg PO HS Qty: 30 0RF losartan 50 mg tablet 50 mg PO HS Problem Reconciliation Problems Reviewed?: Yes Patient Discharge Instructions Patient Instructions: Cardiac Catheterization, Coronary Stenting, DI for Surgical Site Infection, Moderate Sedation, DI for Post-Surgical Bleeding Print Language: Italian Providers Primary Care Provider: Provider,Referral Admit Provider: Alexx Young Attending Provider: Gary Raymond
--- NOTE | 2024-08-10 09:52 | SW/DCPLANNER ---
Spoke with patient on the phone. Patient stated that she is doing very well and she is aware of her upcoming appointments and that she got all of her new medication filled. She has no concerns or questions at this time. Ellen Aviles
[2024-08-10 10:08] LABS: POC Glucose,Bedside 192 (70-110)
== END 2024-08-05 14:13 | disposition home or self-care (01) | DRG 322 ==
LOC: CATHLAB 07:30 → ER 07:30 → CATHLAB 09:15 → 2ND 09:19
PROVIDERS: Physician Assistant; Student in an Organized Health Care Education/Training Program; Admitting Provider Internal Medicine; Emergency Provider Student in an Organized Health Care Education/Training Program; Visit Provider Internal Medicine Adolescent Medicine
PROC: 027135Z Dilation of Coronary Artery, Two Arteries with Two Drug-eluting Intraluminal Devices, Percutaneous Approach (ICD-10-PCS; principal; 2024-08-03 07:00)
DX: I21.3 ST elevation (STEMI) myocardial infarction of unspecified site (principal); I44.2 Atrioventricular block, complete; I47.29 Other ventricular tachycardia; I50.20 Unspecified systolic (congestive) heart failure; T82.528A Displacement of other cardiac and vascular devices and implants, initial encounter; I11.0 Hypertensive heart disease with heart failure; E78.5 Hyperlipidemia, unspecified; E11.65 Type 2 diabetes mellitus with hyperglycemia; Y84.0 Cardiac catheterization as the cause of abnormal reaction of the patient, or of later complication, without mention of misadventure at the time of the procedure; Y71.8 Miscellaneous cardiovascular devices associated with adverse incidents, not elsewhere classified; Y92.234 Operating room of hospital as the place of occurrence of the external cause; Z79.899 Other long term (current) drug therapy; Z86.73 Personal history of transient ischemic attack (TIA), and cerebral infarction without residual deficits
CPT/HCPCS: 36415; 71045; 80048; 80053; 80061; 82962; 83036; 83735; 84443; 84484; 85025; 85347; 85610; 85730; 86803; 87389; 92941; 92973; 93005; 93306; 93458; 97162; 97165; 99152; 99153; 99291; C1725; C1760; C1769; C1874; C1894; C9606; J1200; J1644; J2250; J2405; J3010; Q9967

== ENCOUNTER 2024-09-04 08:47 | Day surgery (SDC) | payer MEDICARE, SELFPAY ==
[2024-09-04] VITALS (11 sets, daily range): BP systolic 112–182; BP diastolic 49–95; PULSE 41–64; RESP 16–20; O2SAT 95–100; BMI 31.1
--- NOTE | 2024-09-04 07:14 | IR_ITS ---
APPROVED REPORT Patient Location: Outpatient [place] Applier: Kobi Tavera RT (R) PROCEDURES Drug-eluting stent deployment to the left main artery Drug-eluting stent deployment to the proximal and mid LAD INDICATION Coronary artery disease, Systolic congestive heart failure ejection fraction 32%, Informed consent was obtained prior to the procedure. COMPLICATIONS NONE Estimated Blood Loss: LESS THAN 10 ML TECHNIQUE One percent lidocaine used to anesthetize the right anterior aspect of the wrist. The right radial artery was accessed via the Seldinger technique. A 6 Polish sheath was placed in the right radial artery. 2.5 mg of Verapamil, 800 mcg of nitroglycerin, 1mg Lidocaine and 5000 U Heparin were given through the arterial sheath. A 6 Polish JL 3 guide catheter was placed in left main artery followed by Choice PT extra-support wire placed into the LAD. A 3.5 x 15 mm Early frontier stent was placed in the ostium of the left main artery extending into the proximal LAD and deployed at 24 jose. An additional 2.75 x 38 mm Ross frontier stent was placed distal to the for stent yet still overlapping which extended into the mid LAD and then deployed at 16 jose. A 3.5 x 12 mm noncompliant balloon was placed between the 2 stents at the mesh point and deployed at 24 jose to mesh together. VALENCIA-3 flow was present before and after the procedure at the end the procedure the apparatus was removed the sheath was removed and hemostasis was achieved using TR banding patient was transferred to the postop putting in stable condition IMPRESSION Successful stenting of the ostial left main artery Successful stenting of the proximal to mid LAD PLAN 1. Continue dual antiplatelet therapy 2. Continue wearing LifeVest 3. Avoidance of tobacco products 4. Standard therapy for systolic heart failure 5. Standard therapy for ischemic heart disease Electronically signed by : Alexx Young MD 09/04/2024 11:56:29
[2024-09-04 09:28] LABS: Basophils % 0.6 % (0.1-2.0); Eosinophils # 0.1 K/mm3 (0.0-0.4); Eosinophils % 1.5 % (0.1-12.0); Hematocrit 44.8 % (37.0-47.0); Hemoglobin 14.2 g/dL (12.2-16.2); Lymphocytes # 2.1 K/mm3 (0.7-4.5); Lymphocytes % 33.5 % (10-50); Mean Corpuscular HGB Conc 31.7 g/dL (31.8-35.4); Mean Corpuscular Hemoglobin 28.8 pg (27.0-31.2); Mean Corpuscular Volume 90.9 fl (81-99); Mean Platelet Volume 9.2 fl (7.4-10.4); Monocytes # 0.4 K/mm3 (0.1-1.0); Monocytes % 6.5 % (1.7-9.3); Neutrophils # 3.6 K/mm3 (1.8-7.8); Neutrophils % 57.6 % (37.0-80.0); Platelet Count 267 K/mm3 (142-424); Red Blood Count 4.93 M/mm3 (4.20-5.40); Red Cell Distribution Width 13.8 % (11.5-17.5); White Blood Count 6.2 K/mm3 (4.8-10.8)
[2024-09-04 09:39] LABS: Chloride 104 mmol/L (98-107); Sodium 135 mmol/L (136-145)
[2024-09-04 09:43] LABS: Blood Urea Nitrogen 23 mg/dl (7-17); Calcium 9.3 mg/dl (8.4-10.2); Carbon Dioxide 25 mmol/L (22.0-30.0); Creatinine Clearance Estimated 46 mL/min (50-200); Estimated Glomerular Filt Rate 41 ml/min (>60); GFR (African American) 49 ML/MIN (>60); Glucose 120 mg/dl (74-100)
[2024-09-04] MEDS: HEPARIN 1,000 UNITS/ML 10ML VIAL (CATH LAB) 10000 UNIT IV (10:57)
[2024-09-04] MEDS: HEPARIN 1,000 UNITS/500ML NS (CATH LAB) 3000 UNIT IV (10:57)
[2024-09-04] MEDS: diphenhydrAMINE 50MG/ML VIAL 50 MG IV (10:57)
[2024-09-04] MEDS: NITROGLYCERIN 800MCG/8ML SYR (CATH LAB) 800 MCG IA (10:57)
[2024-09-04] MEDS: LIDOCAINE 1% 10ML MDV 20 ML IJ (10:57)
[2024-09-04] MEDS: VERAPAMIL 2.5MG/ML 2ML VIAL 2.5 MG IV (10:58)
[2024-09-04] MEDS: 0.9 % SODIUM CHLORIDE 500 ML 25 ML IV (10:58)
[2024-09-04] MEDS: FENTANYL 100MCG/2ML VIAL 50 MCG IV (10:59)
[2024-09-04] MEDS: MIDAZOLAM HCL 1MG/ML 5ML VIAL 1 MG IV (10:59)
[2024-09-04] MEDS: TICAGRELOR 90MG TABLET 90 MG PO (12:04)
--- NOTE | 2024-09-04 13:17 | SUR.PHASEII ---
pt given warm blanket and lunch tray.
[2024-09-04] MEDS: IOPAMIDOL-370 (76%);100ML BOTTLE 75 ML IV (14:22)
[2024-09-04 14:26] LABS: CATHL Activated Clotting Time 356 SEC (74-125)
== END 2024-09-04 15:26 | disposition home or self-care (01) ==
PROVIDERS: PCP Family Medicine; Visit Provider Internal Medicine
DX: I25.10 Atherosclerotic heart disease of native coronary artery without angina pectoris (principal); Z95.5 Presence of coronary angioplasty implant and graft; I11.0 Hypertensive heart disease with heart failure; I50.22 Chronic systolic (congestive) heart failure; I25.2 Old myocardial infarction; E11.9 Type 2 diabetes mellitus without complications; Z79.899 Other long term (current) drug therapy
CPT/HCPCS: 80048; 85025; 85347; 92928; 99152; C1725; C1769; C1874; C9600; J1200; J1644; J2250; J3010; Q9967

== ENCOUNTER 2024-09-10 12:09 | Outpatient (CLI) | payer MEDICARE, SELFPAY | END 2024-09-10 23:59 | disposition home or self-care (01) | LOC: RT 12:10 | PROVIDERS: PCP Family Medicine; Visit Provider Nurse Practitioner | DX: R00.1 Bradycardia, unspecified (principal); I44.1 Atrioventricular block, second degree | CPT/HCPCS: 93225; 93227 ==

== ENCOUNTER 2024-09-15 11:43 | Outpatient (CLI) | payer MEDICARE, SELFPAY ==
--- NOTE | 2024-09-15 11:47 | CA_ITS ---
APPROVED REPORT EXAM: Limited 2D Echocardiogram Flight Control Specialist: Antonette Cedeno CRT Ht: 4 ft 11 in Wt: 153lbs BSA: 1.65 BP: 154/84 mmHg Indications: ef check life vest on, stents on 08/03/24, 09/04/24 ef 30% 08/03/24 echo M-Mode Dimensions RVDd 1.74 cm (0.9-2.6) LA Diam 4.63 cm (1.9-4.0) LVDd 4.39 cm (3.5-5.7) LVDs 3.66 cm (3.5-5.7) IVSd 1.98 cm (0.6-1.1) PWd 0.57 cm (0.6-1.1) EF (Teich) 35.10% FS 16.60% EDV (Teich) 87.20 mL ESV (Teich) 56.60 mL Other Information Study Quality: Fair Conclusion This is a limited TTE to evaluate for LV systolic function. Limited windows were The left ventricle is normal in size. There is increased LV wall thickness. There is moderate global hypokinesis present. The septum is asynchronous. LVEF is 35-40%. Compared to prior study from 08/03/2024, the LVEF is slightly improved. Electronically signed by : Diamond Flores MD 09/15/2024 13:12:14
[2024-09-15 13:53] LABS: Basophils % 0.3 % (0.1-2.0); Eosinophils % 0.7 % (0.1-12.0); Hematocrit 45.5 % (37.0-47.0); Hemoglobin 14.5 g/dL (12.2-16.2); Lymphocytes # 1.2 K/mm3 (0.7-4.5); Lymphocytes % 20.5 % (10-50); Mean Corpuscular HGB Conc 31.9 g/dL (31.8-35.4); Mean Corpuscular Hemoglobin 28.9 pg (27.0-31.2); Mean Corpuscular Volume 90.8 fl (81-99); Monocytes # 0.4 K/mm3 (0.1-1.0); Monocytes % 5.9 % (1.7-9.3); Neutrophils # 4.3 K/mm3 (1.8-7.8); Neutrophils % 72.3 % (37.0-80.0); Platelet Count 285 K/mm3 (142-424); Red Blood Count 5.01 M/mm3 (4.20-5.40); Red Cell Distribution Width 13.7 % (11.5-17.5); White Blood Count 5.9 K/mm3 (4.8-10.8)
[2024-09-15 14:31] LABS: Anion Gap 11.5 mEq/L (5-15); Blood Urea Nitrogen 22 mg/dl (7-17); Calcium 9.4 mg/dl (8.4-10.2); Carbon Dioxide 24 mmol/L (22.0-30.0); Chloride 108 mmol/L (98-107); Estimated Glomerular Filt Rate 55 ml/min (>60); GFR (African American) 67 ML/MIN (>60); Glucose 158 mg/dl (74-100); Potassium 4.5 mmoL/L (3.5-5.1); Sodium 139 mmol/L (136-145)
== END 2024-09-15 23:59 | disposition home or self-care (01) ==
LOC: RT 11:46
PROVIDERS: Internal Medicine; PCP Family Medicine; Visit Provider Nurse Practitioner
DX: R94.31 Abnormal electrocardiogram [ECG] [EKG] (principal); I44.1 Atrioventricular block, second degree; I50.20 Unspecified systolic (congestive) heart failure; I21.3 ST elevation (STEMI) myocardial infarction of unspecified site; Z95.5 Presence of coronary angioplasty implant and graft
CPT/HCPCS: 36415; 80048; 85025; 93270; 93308

== ENCOUNTER 2024-10-12 09:37 | Outpatient (CLI) | payer MEDICARE, SELFPAY ==
[2024-10-12 09:54] LABS: Basophils % 0.4 % (0.1-2.0); Eosinophils # 0.1 K/mm3 (0.0-0.4); Hematocrit 44.1 % (37.0-47.0); Hemoglobin 14.1 g/dL (12.2-16.2); Lymphocytes % 19.5 % (10-50); Mean Corpuscular Hemoglobin 28.6 pg (27.0-31.2); Mean Corpuscular Volume 89.5 fl (81-99); Mean Platelet Volume 9.2 fl (7.4-10.4); Monocytes # 0.3 K/mm3 (0.1-1.0); Monocytes % 6.9 % (1.7-9.3); Neutrophils # 3.6 K/mm3 (1.8-7.8); Platelet Count 227 K/mm3 (142-424); Red Blood Count 4.93 M/mm3 (4.20-5.40); White Blood Count 4.9 K/mm3 (4.8-10.8)
[2024-10-12 10:13] LABS: Anion Gap 14.3 mEq/L (5-15); Blood Urea Nitrogen 26 mg/dl (7-17); Calcium 9.3 mg/dl (8.4-10.2); Carbon Dioxide 26 mmol/L (22.0-30.0); Chloride 105 mmol/L (98-107); Estimated Glomerular Filt Rate 49 ml/min (>60); GFR (African American) 60 ML/MIN (>60); Glucose 139 mg/dl (74-100); Potassium 4.3 mmoL/L (3.5-5.1); Sodium 141 mmol/L (136-145)
== END 2024-10-12 23:59 | disposition home or self-care (01) ==
LOC: LAB 09:38
PROVIDERS: PCP Family Medicine; Visit Provider Nurse Practitioner
DX: I50.20 Unspecified systolic (congestive) heart failure (principal); I44.1 Atrioventricular block, second degree; I25.10 Atherosclerotic heart disease of native coronary artery without angina pectoris; R00.1 Bradycardia, unspecified; R94.31 Abnormal electrocardiogram [ECG] [EKG]; I10 Essential (primary) hypertension; I51.9 Heart disease, unspecified
CPT/HCPCS: 36415; 80048; 85025

== ENCOUNTER 2024-10-13 10:05 | Outpatient (RCR) | payer MEDICARE, SELFPAY | END 2024-11-11 11:00 | disposition home or self-care (01) | LOC: CR 10:05 | PROVIDERS: Visit Provider Internal Medicine | DX: Z95.5 Presence of coronary angioplasty implant and graft (principal) | CPT/HCPCS: 93798 ==

== ENCOUNTER 2024-11-18 01:23 | Inpatient (IN) | payer MEDICARE, SELFPAY ==
[2024-11-18] VITALS (59 sets, daily range): BP systolic 81–186; BP diastolic 41–124; PULSE 39–93; RESP 14–31; TEMP 36.6–36.8; O2SAT 90–99; BMI 29.0; BMI 27.8
--- NOTE | 2024-11-18 01:33 | XR_ITS ---
PROCEDURE INFORMATION: Exam: XR Chest Exam date and time: 11/18/2024 1:41 AM Age: 69 years old Clinical indication: Shortness of breath; Additional info: SOA cardiac HX TECHNIQUE: Imaging protocol: Radiologic exam of the chest. Views: 2 views. COMPARISON: CR XR CHEST PORTABLE 08/03/2024 6:53 AM FINDINGS: Lungs: Perihilar airspace opacity more prominent on the right than the left. Pleural spaces: Unremarkable. No pleural effusion. No pneumothorax. Heart/Mediastinum: Cardiomegaly. Bilateral pulmonary artery prominence. Bones/joints: Unremarkable. IMPRESSION: Cardiomegaly. Bilateral pulmonary artery prominence. Perihilar airspace opacity more prominent on the right than the left. Likely congestive failure although superimposed infiltrate is a possibility.
--- NOTE | 2024-11-18 01:39 | ECG_ITS ---
APPROVED REPORT Exam: Resting ECG HR:70 bpm ECG Measurements Heart Rate 70 AXES [place] 217 P -86 QRSd 98 QRS 51 QT 386 T 139 QTc 408 Conclusion ECTOPIC ATRIAL RHYTHM WITH FIRST DEGREE AV BLOCK WITH FREQUENT SUPRAVENTRICULAR PREMATURE COMPLEXES MODERATE T-WAVE ABNORMALITY, CONSIDER LATERAL ISCHEMIA [-0.1+ mV T-WAVE IN I/aVL/V5/V6] No STEMI Electronically signed by : KAROLINA WILSON, 11/18/2024 06:19:56
--- NOTE | 2024-11-18 01:51 | PC.NURSE ---
Pt to CT scan via stretcher
--- NOTE | 2024-11-18 01:54 | PC.NURSE ---
Pt awake alert and oriented Unsure whether the patient is in 2nd or third degree block per continuous heart monitor. Pt has expiratory wheezes auscultated anteriorly, rales auscultated in posterior lung brambila. Skin pale warm and dry Resp full and only very slightly labored with dry cough. Pedal pulses strong and equal. Pt placed on nasal O2. at bedside.
[2024-11-18 01:55] LABS: Coronavirus 19, PCR Not Detected (NotDetected); Human Rhinovirus Not Detected (NotDetected); Influenza A, PCR Not Detected (NotDetected); Influenza B, PCR Not Detected (NotDetected); Respiratory Syncytial Virus Not Detected (NotDetected)
[2024-11-18 01:56] LABS: Basophils % 0.2 % (0.1-2.0); Eosinophils # 0.1 K/mm3 (0.0-0.4); Eosinophils % 0.8 % (0.1-12.0); Hemoglobin 15.1 g/dL (12.2-16.2); Lymphocytes # 2.5 K/mm3 (0.7-4.5); Lymphocytes % 28.4 % (10-50); Mean Corpuscular HGB Conc 32.8 g/dL (31.8-35.4); Mean Corpuscular Hemoglobin 28.5 pg (27.0-31.2); Mean Platelet Volume 9.5 fl (7.4-10.4); Monocytes # 0.4 K/mm3 (0.1-1.0); Monocytes % 4.7 % (1.7-9.3); Neutrophils # 5.7 K/mm3 (1.8-7.8); Neutrophils % 65.7 % (37.0-80.0); Platelet Count 282 K/mm3 (142-424); Red Blood Count 5.29 M/mm3 (4.20-5.40); Red Cell Distribution Width 13.6 % (11.5-17.5); White Blood Count 8.7 K/mm3 (4.8-10.8)
[2024-11-18 01:56] LABS: Lactate Venous 1.7 mmol/L (0.4-2.0); VBG Base Excess -3.9 mmol/L (-2.4-2.3); VBG HCO3 20.8 mmol/L (23-30); VBG Oxygen Saturation 89.7 % (50-70); VBG PCO2 33.5 mmol/L (35-51); VBG PH 7.41 mmol/L (7.31-7.41); VBG PO2 57.9 mmol/L (28-40); VBG Total CO2 21.8 mmol/L (23-27)
[2024-11-18 02:02] LABS: Albumin Level 4.5 g/dl (3.5-5.0); Chloride 106 mmol/L (98-107); Potassium 3.8 mmoL/L (3.5-5.1); Sodium 135 mmol/L (136-145)
[2024-11-18 02:05] LABS: Alanine Aminotransferase 29 U/L (12-78); Albumin/Globulin Ratio 1.6 (1.1-1.8); Alkaline Phosphatase 116 U/L (38-126); Anion Gap 10.8 mEq/L (5-15); Aspartate Amino Transferase 34 U/L (14-36); Bilirubin,Total 0.9 mg/dl (0.2-1.3); Blood Urea Nitrogen 20 mg/dl (7-17); Carbon Dioxide 22 mmol/L (22.0-30.0); Creatinine Clearance Estimated 50 mL/min (50-200); Estimated Glomerular Filt Rate 49 ml/min (>60); GFR (African American) 60 ML/MIN (>60); Globulin 2.8 g/dL (1.3-3.2); Total Protein,Serum 7.3 g/dl (6.3-8.2)
[2024-11-18 02:06] LABS: Calcium 10.3 mg/dl (8.4-10.2); Glucose 212 mg/dl (74-100)
[2024-11-18] MEDS: FUROSEMIDE 40MG/4ML VIAL 40 MG IV ×3 (02:07→15:31)
[2024-11-18] MEDS: ASPIRIN 81MG CHEWABLE TABLET 324 MG PO (02:08)
[2024-11-18 02:10] LABS: D-Dimer 1.13 ug/mL (0.0-0.5)
[2024-11-18] MEDS: GLUCAGON 1 MG/ML VIAL IV (02:11)
[2024-11-18] MEDS: DOBUTAMINE HCL/D5W 250 ML 9.8 MG IV (02:12)
[2024-11-18 02:15] LABS: NT Pro Brain Natriuretic Pep. 7970 pg/mL (0-125)
[2024-11-18 02:17] LABS: Troponin I 0.07 ng/ml (0.00-0.034)
[2024-11-18] MEDS: LORazepam 2MG/ML VIAL 0.5 MG IV (02:24)
--- NOTE | 2024-11-18 02:31 | PC.NURSE ---
ED attending at the bedside to update pt and family on plan of care. Pt on Bi-pap and tolerating well at this time.
[2024-11-18] MEDS: ENOXAPARIN 100MG/ML SYRINGE 65 MG SUBCUT (02:37)
--- NOTE | 2024-11-18 02:43 | HMH.EDGENADL ---
Discharge Plan Disposition Patient Disposition: Admitted Condition: Critical Prescriptions Prescriptions: No Action (DME) True Metrix Glucose Test Strip Strip See Rx Instructions .ROUTE .MEDSUPPLY Qty: 10 Rx Instructions: As directed (DME) lancets [TRUEplus Lancets] 33 gauge misc See Rx Instructions .ROUTE .MEDSUPPLY Qty: 100 Rx Instructions: As directed carvedilol [Coreg] 3.125 mg tablet 3.125 mg PO BID Qty: 60 5RF Rx Instructions: must administer with a meal/food valsartan 80 mg tablet 80 mg PO BID Qty: 60 5RF clopidogrel [Plavix] 75 mg tablet 75 mg PO DAILY Qty: 30 2RF atorvastatin 40 mg Tablet 80 mg PO HS 30 Days Qty: 60 0RF aspirin 81 mg Tablet,Delayed Release (Dr/Ec) 81 mg PO DAILY 30 Days Qty: 30 0RF dapagliflozin propanediol [Farxiga] 10 mg Tablet 10 mg PO DAILY 30 Days Qty: 30 0RF Referrals Follow up/Referrals: Provider,Referral, MD [Primary Care Provider] - See instructions Clinical Impressions Clinical Impression: Takotsubo cardiomyopathy, Shortness of breath, Pulmonary edema Print Language Print Language: Italian Discharge ED Provider: Cheryle Smith Adult HPI General Chief complaint: Upper Respiratory Infection Stated complaint: trouble breathing, dizziness, phlegm Time Seen by Provider: 11/18/24 01:29 Mode of Arrival: Ambulatory Source of Information: Patient Description of Symptoms (Recalled from ER Triage Doc. by RN): shortness of breath and cough History of Present Illness HPI narrative: 69-year-old female with history of NV's ago on valsartan, clopidogrel, Coreg with a history of diminished left ventricular function with EF 35 to 40% on most recent echo per my review of records presents to the ER with shortness of breath. Patient reports approximately 2 hours prior to arrival she had sudden onset shortness of breath. She is also coughing up clear phlegm. She reports no fevers or chills, no chest pain, no leg swelling, no nausea vomiting or diarrhea, no abdominal complaints. No other complaints. Patient does report she was in a car for multiple hours today. 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 She has no history of blood clots. Patient reportedly received some stressful emotional news earlier today. No other complaints or concerns Related Data Home Medications ?Medication ?Instructions ?Recorded ?Confirmed blood sugar diagnostic (True #10 ea 09/10/24 10/12/24 Metrix Glucose Test Strip) lancets 33 gauge (TRUEplus Lancets) #100 ea 09/10/24 10/12/24 Previous Rx's ?Medication ?Instructions ?Recorded aspirin 81 mg tablet,delayed 81 mg PO DAILY 30 days #30 tabs 08/05/24 release atorvastatin 40 mg tablet 80 mg (2 x 40 mg) PO HS 30 days 08/05/24 #60 tabs dapagliflozin propanediol 10 mg 10 mg PO DAILY 30 days #30 tabs 08/05/24 tablet (Farxiga) carvedilol 3.125 mg tablet (Coreg) 3.125 mg PO BID #60 tabs 10/12/24 valsartan 80 mg tablet 80 mg PO BID #60 tabs 10/12/24 clopidogrel 75 mg tablet (Plavix) 75 mg PO DAILY #30 tabs 10/16/24 Allergies Allergy/AdvReac Type Severity Reaction Status Date / Time lisinopril AdvReac Mild cough Verified 10/12/24 08:55 [facility] [place] Disclaimer: The information contained in this section may have been updated after the patient was seen, as this information can be updated by other users. Medical History HFrEF (heart failure with reduced ejection fraction) 2nd degree AV block Stroke Hernia Surgical History History of cardiac cath H/O heart artery stent S/P cardiac cath H/O: section Social History Smoking Status: Never smoker alcohol intake: never substance use type: denies use current occupational status: retired Travel in the last 8 weeks: None household members: spouse housing: house Have you lived/traveled outside [place] in past 30 days?: No Contact w/someone who lives/traveled outside [place] past 30 days?: No Exposure to someone with infectious disease in past 14 days?: No Do you have a fever (greater than 100.4 F or 38 C)?: No Have you tested positive for COVID-19: No Exposed to someone with COVID-19 in past 14 days?: No Do you have a sore throat?: No Do you have a cough?: No Do you have any weakness?: No Do you have any diarrhea?: No Are you experiencing any unusual bleeding?: No Do you have any muscle aches/pain?: No Do you have any abdominal pain?: No Are you experiencing loss of taste or smell?: No Other Medical History Have you received the Flu Vaccine for this season: No Have you received the Pneumonia Vaccine: No ROS Obtained: Yes Systems reviewed as appropriate & no additional complaints except as documented Per HPI Physical Exam General General appearance: alert and in no apparent distress Head Head exam: atraumatic and normocephalic Eye Eye exam: Present PERRL and EOMI ENT ENT exam: Present mucous membranes moist Neck Neck exam: Present normal inspection and full ROM Chest Chest inspection: Present symmetric chest wall rise Respiratory Respiratory exam: Present respiratory distress (Tachypneic hypoxic on arrival); Absent normal lung sounds bilaterally (Rales bilaterally), wheezes or stridor Cardiovascular Cardiovascular exam: Present regular rate and normal rhythm Abdominal Exam Abdominal exam: Present soft; Absent distention or tenderness Extremities Exam Extremities exam: Present full ROM and edema (+1 bilaterally) Neurological Exam Neurological exam: Present alert and oriented X3; Absent motor sensory deficit Psychiatric Psychiatric exam: Present normal affect and normal mood Skin Skin exam: Present warm and dry Medical Decision Making Medical Records Medical records reviewed: Yes I reviewed the patient's medical records. Screening: Per USPSTF and CDC recommendations, given the prevalence of disease in our region, it is our hospital?s policy to screen for HIV and viral Hepatitis for all patients aged 18 and over and those with ongoing risk factors. MR Comment: See HPI Meño Inquiry Pt receiving controlled substance: No Vital Signs: 11/18/24 01:37 11/18/24 01:39 11/18/24 01:56 Temperature 98.3 F Temperature Source Oral Pulse Rate 73 Pulse Rate [Right Brachial] 80 Respiratory Rate 20 Blood Pressure Blood Pressure [Right Arm] 166/96 H Blood Pressure Mean Blood Pressure Mean [Right Arm] 119 Blood Pressure Source [Right Arm] Automatic Cuff Blood Pressure Position [Right Arm] Sitting 02 Sat by Pulse Oximetry 90 L 90 L 92 L Oxygen Delivery Method Room Air Nasal Cannula Oxygen Flow Rate (LPM) 2 Fraction of Inspired Oxygen 11/18/24 02:00 11/18/24 02:01 11/18/24 02:15 Temperature Temperature Source Pulse Rate 68 73 71 Pulse Rate [Right Brachial] Respiratory Rate 25 H 25 H 29 H Blood Pressure 182/100 H 177/124 H Blood Pressure [Right Arm] Blood Pressure Mean Blood Pressure Mean [Right Arm] Blood Pressure Source [Right Arm] Blood Pressure Position [Right Arm] 02 Sat by Pulse Oximetry 93 L 92 L 92 L Oxygen Delivery Method Oxygen Flow Rate (LPM) Fraction of Inspired Oxygen 11/18/24 02:16 11/18/24 02:23 11/18/24 02:28 Temperature Temperature Source Pulse Rate 72 Pulse Rate [Right Brachial] Respiratory Rate 31 H Blood Pressure 186/85 H Blood Pressure [Right Arm] Blood Pressure Mean 118 Blood Pressure Mean [Right Arm] Blood Pressure Source [Right Arm] Blood Pressure Position [Right Arm] 02 Sat by Pulse Oximetry 91 L Oxygen Delivery Method Oxygen Flow Rate (LPM) Fraction of Inspired Oxygen 30 11/18/24 02:30 11/18/24 02:31 Temperature Temperature Source Pulse Rate 39 L Pulse Rate [Right Brachial] Respiratory Rate 29 H 29 H Blood Pressure 170/80 H Blood Pressure [Right Arm] Blood Pressure Mean Blood Pressure Mean [Right Arm] Blood Pressure Source [Right Arm] Blood Pressure Position [Right Arm] 02 Sat by Pulse Oximetry 96 Oxygen Delivery Method Oxygen Flow Rate (LPM) Fraction of Inspired Oxygen Lab Data Lab Results 11/18/24 01:47: WBC 8.7, RBC 5.29, Hgb 15.1, Hct 46.0, MCV 87.0, MCH 28.5, MCHC 32.8, RDW 13.6, Plt Count 282, MPV 9.5, Neut % (Auto) 65.7, Lymph % (Auto) 28.4, [place] % (Auto) 4.7, Eos % (Auto) 0.8, Baso % (Auto) 0.2, Neut # (Auto) 5.7, Lymph # (Auto) 2.5, [place] # (Auto) 0.4, Eos # (Auto) 0.1, Baso # (Auto) 0.0, D-Dimer 1.13 H, Sodium 135 L, Potassium 3.8, Chloride 106, Carbon Dioxide 22, Anion Gap 10.8, BUN 20 H, Creatinine 1.10 H, Estimated Creat Clear 50, Estimated GFR 49 L, Est GFR ( Amer) 60, Glucose 212 H, Calcium 10.3 H, Total Bilirubin 0.9, AST 34, ALT 29, Alkaline Phosphatase 116, Troponin I 0.07 H, NT-Pro-B Natriuret Pep 7970 H, Total Protein 7.3, Albumin 4.5, Globulin 2.8, Albumin/Globulin Ratio 1.6 11/18/24 01:52: VBG pH 7.41, VBG pCO2 33.5 L, VBG pO2 57.9 H, VBG HCO3 20.8 L, VBG Total CO2 21.8 L, VBG O2 Saturation 89.7 H, VBG Base Excess -3.9 L, VBG Lactic Acid 1.7 11/18/24 01:47 11/18/24 01:47 Orders (Tests/Meds): ED MEDICATIONS Generic Name Dose Route Start Last Admin Trade Name Freq PRN Reason Stop Dose Admin Enoxaparin Sodium 65 mg 11/18/24 02:30 11/18/24 02:37 Enoxaparin 100mg/Ml Syringe 1 mg/kg (65 mg) 12/18/24 02:29 65 mg SUBCUT Administration Q12H NU Dobutamine HCl/Dextrose 250 mls @ 9.798 mls/hr 11/18/24 02:03 11/18/24 02:12 Dobutamine 500mg/250ml D5w IV 12/18/24 02:02 5 mcg/kg/min .Q24H NU 9.8 mls/hr Administration Protocol 5 MCG/KG/MIN Sodium Nitroprusside 50 mg/ 252 mls @ 9.876 mls/hr 11/18/24 02:30 Dextrose IV 12/18/24 02:29 .Q24H NU Protocol 0.5 MCG/KG/MIN Sodium Chloride 10 ml 11/18/24 02:17 Sodium Chloride 0.9% 10ml Vial IV 12/18/24 02:16 NEEDED PRN to Dilute Lorazepam inj Discontinued Medications Generic Name Dose Route Start Last Admin Trade Name Freq PRN Reason Stop Dose Admin Aspirin 324 mg 11/18/24 01:55 11/18/24 02:08 Aspirin 81mg Chewable Tablet PO 11/18/24 01:56 324 mg ONCE ONE Administration Furosemide 40 mg 11/18/24 01:55 11/18/24 02:07 Furosemide 40mg/4ml Vial IV 11/18/24 01:56 40 mg ONCE ONE Administration Glucagon 1 mg 11/18/24 02:05 11/18/24 02:11 Glucagon 1 Mg/Ml Vial IV 11/18/24 02:06 1 mg ONCE ONE Administration Lorazepam 0.5 mg 11/18/24 02:17 11/18/24 02:24 Lorazepam 2mg/Ml Vial IV 11/18/24 02:18 0.5 mg ONCE ONE Administration ORDERS Category Date Time Status CXR 2 view (NOT portable) [XR chest 2V] Stat Exams 11/18/24 01:33 Taken POCUS Point of Care (ER Only) Stat Exams 11/18/24 01:34 Completed BNP [NT Pro Brain Natriuretic Pep.] Stat Lab 11/18/24 01:47 Completed CBC w/Auto Diff [Complete Blood Count Auto Diff] Stat Lab 11/18/24 01:47 Completed CMP [Comprehensive Metabolic Panel] Stat Lab 11/18/24 01:47 Completed D-Dimer Stat Lab 11/18/24 01:47 Completed Mini Respiratory Panel Stat Lab 11/18/24 01:47 Received Trop I [Troponin I] Stat Lab 11/18/24 01:47 Completed Troponin I Q3H Lab 11/18/24 04:45 Ordered Troponin I Q3H Lab 11/18/24 07:45 Ordered VBG [Venous Blood Gas] Stat RT 11/18/24 01:52 Completed Medical Decision Narrative: In summary, this 69-year-old female with comorbidities described in the HPI presents to the emergency department today with shortness of breath. On initial evaluation patient is tachypneic, hypoxic, but hemodynamically stable. Afebrile. Rales throughout all lung brambila with +1 pitting edema in the bilateral lower extremities. In respiratory distress. Differential diagnosis includes but is not limited to ACS, PE, cardiomyopathy, pulmonary edema, electrolyte abnormality, kidney dysfunction, pleural effusion, pericardial effusion, among others. Based on these concerns, I ordered broad workup including cardiac workup, [id number] ultrasound, chest x-ray, D-dimer. Point of care ultrasound performed by me at bedside personally interpreted demonstrates dilated cardiomyopathy with decreased global left ventricular function, trace pericardial effusion, patient also has B-lines and pulmonary edema throughout all lung brambila. Lasix ordered. BiPAP ordered. ECG personally interpreted demonstrates sinus rhythm with AV block appears to be first-degree, PACs, normal axis, normal QTc, no STEMI. I discussed this ECG with Dr. Young and he believes it is a 2-1 block. No ischemic changes. I also discussed my ultrasound findings and patient's current clinical status with Dr. Young. He recommends dobutamine at 5 mcg/kg/min, glucagon initially. After further discussion he also recommends nitroprusside drip at 0.5 mcg/kg/min and since patient has an elevated D-dimer Lovenox therapeutically instead of stressing the patient by taking her off of respiratory support for CTA PE. He agrees with the diuresis and BiPAP. Patient received Lasix, dobutamine, glucagon, nitroprusside, Lovenox for treatment. Labs personally reviewed demonstrate mildly elevated troponin, elevated BNP, CBC is normal, elevated D-dimer being treated with therapeutic Lovenox, VBG with no hypercarbia, normal pH, normal VBG lactic, kidney function similar to prior. Labs are consistent with findings of Takotsubo cardiomyopathy Chest x-ray personally interpreted demonstrates diffuse pulmonary edema. See radiology read for final interpretation Patient is resting more comfortably on BiPAP and oxygenating better. Her blood pressure has also improved now 153/77. Respiratory rate remains elevated but I anticipate this settling with continued therapy. Patient is appropriate for admission at this time. I discussed this case with the hospitalist who graciously excepted the patient for ICU admission. Procedures Miscellaneous Procedure Procedure Performed: Limited Cardiac Ultrasound Indication: Shortness of breath Identified cardiac views: [-Cardiac parasternal long axis] [-Cardiac parasternal short axis] [-Cardiac apical four-chamber] [-Cardiac subxiphoid] Findings: Cardiac activity present with diffuse wall motion abnormality, dilated cardiomyopathy, possible trace pericardial effusion but no tamponade, no right heart strain Impression: -[cardiac activity present with diffuse wall motion abnormality, dilated cardiomyopathy, trace pericardial effusion, no right heart strain Images were saved to permanent archive The study was technically adequate CPT: 27233 This study was performed by me, and I personally interpreted all images/videos. Based on my clinical judgement, these images were adequate and did not necessitate further imaging. Limited lung ultrasound A focused ultrasound exam of the pleural spaces was performed to evaluate for pneumothorax, pulmonary edema, pleural effusion and/or consolidation. The ultrasound was performed with the following indications, as noted in the H&P: Shortness of breath Identified structures: Bilateral thoracic cavities were examined. Findings: Lung sliding: -Present bilaterally B-lines: Present in all lung brambila bilaterally Pleural effusion: -Absent bilaterally Consolidation: Absent bilaterally Impression: - Pneumothorax absent bilaterally - Pleural effusion absent bilaterally - B-lines present in all lung brambila bilaterally - Consolidation absent bilaterally Images were saved to permanent archive The study was technically adequate CPT 96245-92 This study was performed by me, and I personally interpreted all images/videos. Based on my clinical judgement, these images were adequate and did not necessitate further imaging. Critical Care Critical Care Time Critical Care Time: Yes Attestation: On 11/18/24, the high probability of a clinically significant, sudden or life threatening deterioration of the following system(s) (cardiac, respiratory) required my full and direct attention, intervention and personal management. The time I documented below is in addition to time spent performing reported procedures but includes the following listed in this critical care notation. Total Time Total Critical Care Time: 65
[2024-11-18] MEDS: NITROPRUSSIDE SODIUM 50 MG in DEXTROSE 5 % IN WATER 250 ML 9.88 MG IV ×2 (02:45→16:06)
--- NOTE | 2024-11-18 02:54 | PC.NURSE ---
Report called to Kathy RN Pt resting quietly tolerating bi-pap well. Hospitalist at bedside. IV infusing without difficulty Sites without redness or edema
--- NOTE | 2024-11-18 02:59 | P.HP_ITS ---
<Statement entered by Matt Espinoza MD - 11/23/24 19:49> Personally evaluated patient and agree with plan of care as outlined by the BUSHER HELPER. History of Present Illness *Admission Date: 11/18/24 *Reason for visit:: Shortness of breath *History of present illness: This is a 69-year-old female who has a past medical history significant for systolic dysfunction congestive heart failure with a EF of 30- 40%, secondary heart block, coronary artery disease, hypertension, CVA, and hernia who presents with a chief complaint of shortness of breath. Due to patient's symptoms, she presented to the emergency room for evaluation. While in the emergency room, patient was acutely hypoxic with room air saturations in the 90s. Chest x-ray was consistent with pulmonary edema and her BNP was significantly elevated. Interventional cardiology was consulted and recommended placing patient on dobutamine, nitroprusside, BiPAP, and given patient diuretics. Due to these recommendations, patient is being admitted for further management. During my evaluation of the patient, patient states that she had a normal day yesterday. She voices waking up normally. She states that around 2200 hrs. yesterday evening she had some distressing news. She attempted to go to sleep at around 2300 hrs. and when she laid on her left side she felt as if she was smothering. She states she was able to cough and it was phlegm only. Her shortness of breath Progressively worse, so she presented to the emergency room for evaluation. She does endorse having some dizziness with this shortness of breath. It is worth mentioning that patient recently underwent PCI in [facility] /July due to the VT. During this intervention, patient received 5 cardiac stents. She reports she has been compliant with DAPT therapy. Currently, she is resting comfortably on the BiPAP and is denying any chest pain, lightheadedness, dizziness, fever, chills, lower extremity edema, PND, orthopnea, nausea, vomiting, or diarrhea. EKG per my read was consistent with sinus rhythm to sinus tachycardia with a first-degree AV block, PACs, left axis shift, and normal axis. Additional pertinent values obtained include a D-dimer of 1.13, sodium 135, BUN of 20, creatinine of 1.10, GFR 59, blood glucose of 212, calcium of 10.3, troponin 0.07, and BNP of 7970. PFSH PFSH Disclaimer: The information contained in this section may have been updated after the patient was seen, as this information can be updated by other users. Medical History (Updated 11/18/24 @ 03:10 by Bandar Paul APRN) Hyperglycemia HFrEF (heart failure with reduced ejection fraction) 2nd degree AV block Stroke Hernia Surgical History History of cardiac cath H/O heart artery stent S/P cardiac cath H/O: section Social History Smoking Status: Never smoker alcohol intake: never substance use type: denies use current occupational status: retired Travel in the last 8 weeks: None household members: spouse housing: house Have you lived/traveled outside [place] in past 30 days?: No Contact w/someone who lives/traveled outside [place] past 30 days?: No Exposure to someone with infectious disease in past 14 days?: No Do you have a fever (greater than 100.4 F or 38 C)?: No Have you tested positive for COVID-19: No Exposed to someone with COVID-19 in past 14 days?: No Do you have a sore throat?: No Do you have a cough?: No Do you have any weakness?: No Do you have any diarrhea?: No Are you experiencing any unusual bleeding?: No Do you have any muscle aches/pain?: No Do you have any abdominal pain?: No Are you experiencing loss of taste or smell?: No Other Medical History Have you received the Flu Vaccine for this season: No Have you received the Pneumonia Vaccine: No Review of Systems Review of Systems Review of systems:: pertinent systems reviewed and negative unless documented below Constitutional Constitutional: Reports system reviewed and no additional complaints, except as documented Eyes Eyes: Reports system reviewed and no additional complaints, except as documented ENT Ears, Nose, Mouth, and Throat: Reports system reviewed and no additional complaints, except as documented *Cardiovascular Cardiovascular: Reports dyspnea and Reports dyspnea on exertion *Respiratory Respiratory: Reports cough, Reports dyspnea, Reports dyspnea on exertion, Reports excessive phlegm production and Reports wheezing *Gastrointestinal Gastrointestinal: Reports system reviewed and no additional complaints, except as documented *Genitourinary Genitourinary: Reports system reviewed and no additional complaints, except as documented *Musculoskeletal Musculoskeletal: Reports system reviewed and no additional complaints, except as documented Integumentary/Breasts Skin/Breast: Reports system reviewed and no additional complaints, except as documented *Neurologic Neurologic: Reports system reviewed and no additional complaints, except as documented Psychiatric Psychiatric: Reports system reviewed and no additional complaints, except as documented Endocrine Endocrine: Reports system reviewed and no additional complaints, except as documented Hematologic/Lymphatic Hematologic/Lymphatic: Reports system reviewed and no additional complaints, except as documented Allergic/Immunologic Allergic/Immunologic: Reports system reviewed and no additional complaints, except as documented and Reports wheezing Meds Home Medications and Allergies Home Medications ?Medication ?Instructions ?Recorded ?Confirmed ?Type aspirin 81 mg tablet,delayed 81 mg PO DAILY 30 days #30 tabs 08/05/24 10/12/24 Rx release atorvastatin 40 mg tablet 80 mg (2 x 40 mg) PO HS 30 days 08/05/24 10/12/24 Rx #60 tabs dapagliflozin propanediol 10 mg 10 mg PO DAILY 30 days #30 tabs 08/05/24 10/12/24 Rx tablet (Farxiga) blood sugar diagnostic (True #10 ea 09/10/24 10/12/24 History Metrix Glucose Test Strip) lancets 33 gauge (TRUEplus Lancets) #100 ea 09/10/24 10/12/24 History carvedilol 3.125 mg tablet (Coreg) 3.125 mg PO BID #60 tabs 10/12/24 10/12/24 Rx valsartan 80 mg tablet 80 mg PO BID #60 tabs 10/12/24 10/12/24 Rx clopidogrel 75 mg tablet (Plavix) 75 mg PO DAILY #30 tabs 10/16/24 Rx New Prescriptions to Start Prescriptions: Allergies Allergy/AdvReac Type Severity Reaction Status Date / Time lisinopril AdvReac Mild cough Verified 10/12/24 08:55 Exam Data for Last 24 hours Vital signs and Labs for Last 24 Hours: Temp Pulse Resp BP Pulse Ox O2 Del Method O2 Flow Rate 98.3 F 54 L 21 144/71 H 96 BiPAP 2 11/18/24 01:37 11/18/24 02:51 11/18/24 02:51 11/18/24 02:51 11/18/24 02:51 11/18/24 02:51 11/18/24 01:39 FiO2 30 11/18/24 02:28 Laboratory Results - last 24 hr 11/18/24 01:47: WBC 8.7, RBC 5.29, Hgb 15.1, Hct 46.0, MCV 87.0, MCH 28.5, MCHC 32.8, RDW 13.6, Plt Count 282, MPV 9.5, Neut % (Auto) 65.7, Lymph % (Auto) 28.4, [place] % (Auto) 4.7, Eos % (Auto) 0.8, Baso % (Auto) 0.2, Neut # (Auto) 5.7, Lymph # (Auto) 2.5, [place] # (Auto) 0.4, Eos # (Auto) 0.1, Baso # (Auto) 0.0, D-Dimer 1.13 H, Sodium 135 L, Potassium 3.8, Chloride 106, Carbon Dioxide 22, Anion Gap 10.8, BUN 20 H, Creatinine 1.10 H, Estimated Creat Clear 50, Estimated GFR 49 L, Est GFR ( Amer) 60, Glucose 212 H, Calcium 10.3 H, Total Bilirubin 0.9, AST 34, ALT 29, Alkaline Phosphatase 116, Troponin I 0.07 H, NT-Pro-B Natriuret Pep 7970 H, Total Protein 7.3, Albumin 4.5, Globulin 2.8, Albumin/Globulin Ratio 1.6 11/18/24 01:52: VBG pH 7.41, VBG pCO2 33.5 L, VBG pO2 57.9 H, VBG HCO3 20.8 L, VBG Total CO2 21.8 L, VBG O2 Saturation 89.7 H, VBG Base Excess -3.9 L, VBG Lactic Acid 1.7 I & O for Last 24 hours: Intake & Output 11/16/24 11/16/24 11/17/24 11/18/24 00:59 23:59 23:59 23:59 Weight 65.317 kg Constitutional Constitutional: mild distress and cooperative *Routine HEENT Exam Head: Present normocephalic and atraumatic Eye: Present EOMI, PERRL and normal accommodation ENT: Present mucous membranes moist *Routine Neck Exam Neck: Present supple *Routine Respiratory Exam Respiratory: Present rales, respiratory distress and wheezes *Routine Cardiovascular Exam Cardiovascular: Present RRR, Normal S1 and Normal S2 *Routine Abdominal Exam Abdominal: Present soft and normoactive bowel sounds *Routine Rectal Exam Rectal:: deferred *Routine Genitalia Exam Genitalia:: deferred *Routine Extremities Exam Extremities: Present full ROM, pulses intact and normal capillary refill Routine Back/Spine/Pelvis Exam Back/Spine: Present full ROM *Routine Skin Exam Skin: Present intact, dry and warm *Routine Neurological Exam Neurological: Present alert, oriented X3, CN II-XII intact, moving all extremities and normal speech Routine Psychiatric Exam Psychiatric: Present normal affect, normal thought process, cooperative, good insight and good judgment H&P: Result Impressions This is a 69-year-old female who has a known significant cardiac history with a systolic dysfunction congestive heart failure who presents in acute distress due to pulmonary edema Assessment and Plan *Assessment and plan (1) Heart failure, systolic, with acute decompensation: Status: Acute Category: Medical Code(s): I50.23 - Acute on chronic systolic (congestive) heart failure (2) Pulmonary edema: Status: Acute Qualifiers: Chronicity: acute Qualified Code(s): J81.0 - Acute pulmonary edema Category: Medical Code(s): J81.1 - Chronic pulmonary edema (3) NSTEMI (non-ST elevated myocardial infarction): Status: Acute Category: Medical Code(s): I21.4 - Non-ST elevation (NSTEMI) myocardial infarction (4) First degree AV block: Status: Acute Category: Medical Code(s): I44.0 - Atrioventricular block, first degree (5) Elevated d-dimer: Status: Acute Category: Medical Code(s): R79.89 - Other specified abnormal findings of blood chemistry (6) Acute hypoxic respiratory failure: Status: Acute Category: Medical Code(s): J96.01 - Acute respiratory failure with hypoxia (7) CKD (chronic kidney disease): Status: Acute Qualifiers: Chronic kidney disease stage: unspecified stage Qualified Code(s): N18.9 - Chronic kidney disease, unspecified Category: Medical Code(s): N18.9 - Chronic kidney disease, unspecified (8) Hyperglycemia: Status: Acute Category: Medical Code(s): R73.9 - Hyperglycemia, unspecified Plan Assessment: Acute decompensated systolic dysfunction congestive heart failure/pulmonary edema: HFrEF -Patient has been given Lasix we will continue 40 mg IV twice daily -Will continue nitroprusside per direction of cardiology -Will continue BiPAP -Will continue dobutamine -Last 2D echo revealed an EF of 35%. Patient states that her EF has improved to 40% -Will keep n.p.o. until evaluated by bandoleer straightener stamper NSTEMI -Will trend troponins -Will initiate therapeutic dosing of Lovenox at 1 mg/kg of body weight -Patient has received 325 mg of aspirin -Will concerning 1 mg daily -Will consult cardiology First-degree AV block -Will monitor Elevated D-dimer -Concerns for PE are low -Most likely in the setting of pulmonary edema Acute hypoxic respiratory failure -Will diurese patient and once patient becomes euvolemic I believe her oxygenation will improve -If patient's oxygenation does not improve after diuresis, will consider establishing patient home O2 -Will continue to BiPAP 10/5 with a respiratory rate of 14 and FiO2 to maintain sats greater 92% Chronic kidney disease -Patient appears to be at baseline creatinine -Will monitor creatinine function daily Hyperglycemia -No prior history of diabetes -Patient did receive glucagon -Will obtain hemoglobin A1c -Will monitor fasting blood glucose Plan: Admit patient to the intensive care unit in a inpatient status on telemetry Activity as tolerated Saline lock Vital signs every hour Keep patient n.p.o. until evaluated by cardiology CBC/BMP daily Trend troponins every 3 hours 5 mg [place] p.o. every 4 hours for moderate pain 2 mg morphine IV push every 2 hours as needed severe pain 4 mg Zofran IV push to 8 hours. Nausea vomiting/full code I will discuss this case with attending physician Dr. Espinoza and a look forward to more input
--- NOTE | 2024-11-18 03:07 | PC.NURSE ---
Pt transported to ICU via stretcher with IV bipap monitor and RN.
--- NOTE | 2024-11-18 03:23 | PC.NURSE ---
patient arrived to ICU unit via bed @03:10
--- NOTE | 2024-11-18 03:33 | PC.NURSE ---
Spoke to Michael RN concerning pts drips after receiving report. Nurse stated that Hector HAYNES did not want the ni-pride or dobutamine drips titrated. Michael also confirmed this with Esther HAYNES in er.
[2024-11-18 03:43] LABS: POC Glucose,Bedside 197 (70-110)
--- NOTE | 2024-11-18 04:15 | PC.NURSE ---
pts home medication put in med care in supply room
[2024-11-18 05:40] LABS: Basophils % 0.2 % (0.1-2.0); Eosinophils % 0.2 % (0.1-12.0); Hematocrit 40.7 % (37.0-47.0); Lymphocytes # 0.8 K/mm3 (0.7-4.5); Lymphocytes % 9.2 % (10-50); Mean Corpuscular HGB Conc 33.2 g/dL (31.8-35.4); Mean Corpuscular Hemoglobin 28.9 pg (27.0-31.2); Mean Corpuscular Volume 87.2 fl (81-99); Mean Platelet Volume 9.7 fl (7.4-10.4); Monocytes # 0.5 K/mm3 (0.1-1.0); Monocytes % 5.6 % (1.7-9.3); Neutrophils # 7.6 K/mm3 (1.8-7.8); Neutrophils % 84.5 % (37.0-80.0); Platelet Count 207 K/mm3 (142-424); Red Blood Count 4.67 M/mm3 (4.20-5.40); Red Cell Distribution Width 13.6 % (11.5-17.5)
[2024-11-18 05:48] LABS: Hemoglobin 13.4 g/dL (12.2-16.2)
--- NOTE | 2024-11-18 06:11 | PC.NURSE ---
pts blood glucose checked is 210. call was placed to md about putting in order for insulin with sliding scale. MD stated he would put in the orders. pt does not take anything for her glucose at home due to being able to control it with diet and exercise.
[2024-11-18 06:15] LABS: POC Glucose,Bedside 210 (70-110)
[2024-11-18 06:16] LABS: Anion Gap 9.2 mEq/L (5-15); Blood Urea Nitrogen 20 mg/dl (7-17); Calcium 7.7 mg/dl (8.4-10.2); Carbon Dioxide 26 mmol/L (22.0-30.0); Chloride 103 mmol/L (98-107); Creatinine Clearance Estimated 53 mL/min (50-200); Estimated Glomerular Filt Rate 99 ml/min (>60); GFR (African American) 120 ML/MIN (>60); Glucose 109 mg/dl (74-100); Potassium 3.2 mmoL/L (3.5-5.1); Sodium 135 mmol/L (136-145)
[2024-11-18 06:18] LABS: Troponin I 0.22 ng/ml (0.00-0.034)
--- NOTE | 2024-11-18 06:19 | PC.NURSE ---
critical lab called to Bandar HAYNES. Bandar made aware troponin is 0.22
--- NOTE | 2024-11-18 06:31 | PC.NURSE ---
called the lab about pts glucose. when checked through blood work glucose shows 109, when checked with glucometer it showed 210. rechecked with glucometer it shows 176. pt is denying insulin at this time due to not taken anything for her glucose. pt was advised that with out taking insulin that her glucose would continue to increase. pt stated that the insulin is poision. provider notified
[2024-11-18 06:36] LABS: POC Glucose,Bedside 178 (70-110)
--- NOTE | 2024-11-18 07:16 | HMH.PHAINT1 ---
Pharmacy Intervention Comments: MEDICATION RECONCILIATION COMPLETED ON PATIENT USING EXTERNAL FILL HISTORY FROM PHARMACY AND LIST FROM CARDIOLOGY OFFICE. -CASSANDRA SHELLEY, ROSAD
--- NOTE | 2024-11-18 07:47 | CA_ITS ---
APPROVED REPORT EXAM: Limited 2D Echocardiogram with contrast Data Center Architect: Antonette Cedeno CRT Ht: 4 ft 11 in Wt: 138lbs BSA: 1.58 BP: 144/71 mmHg Indications: EF CHECK, CM EF 35-40 09/15/24 ECHOHTN, CAD, CVA, IA 5 STENTS Echo Enhancing Agent Indication: Endocardial border delineation Agent(s) / Amount(s) Used: Definity 2 cc Comments: DEFINITY GIVEN M-Mode Dimensions RVDd 2.02 cm (0.9-2.6) LVDd 5.12 cm (3.5-5.7) LVDs 4.10 cm (3.5-5.7) IVSd 1.52 cm (0.6-1.1) PWd 1.19 cm (0.6-1.1) EF (Teich) 40.60% FS 19.90% EDV (Teich) 124.90 mL ESV (Teich) 74.20 mL Other Information Study Quality: Fair Conclusion This is a limited TTE to evaluate for LV systolic function. Limited windows were obtained. Administration of ultrasound enhancing agent was performed. The left ventricle is normal in size. There is increased LV wall thickness. The septum is asynchronous. There is moderate global hypokinesis. There is severe hypokinesis of the basal septal and inferoseptal LV wall. LVEF is 35-40%. Compared to prior study from 09/15/2024, the LVEF is unchanged. Electronically signed by : Diamond Flores MD 11/18/2024 12:12:36
--- NOTE | 2024-11-18 08:00 | CT_ITS ---
FINAL REPORT TECHNIQUE: The patient was injected with IV contrast. Axial images were obtained through the chest in a PE protocol. 3-D reconstruction images were also performed. Individualized dose reduction techniques using automated exposure control or adjustment of the MA and/or KV according to patient's size were employed. CLINICAL HISTORY: high dimer, hypoxia, troponemia, acute HFrEF COMPARISON: None FINDINGS: Mediastinal vasculature is adequately opacified. No pulmonary artery filling defects are identified to suggest PE. There is no aortic dissection. There is no axillary adenopathy. There is no hilar or mediastinal adenopathy. The heart size is normal. There are small to moderate bilateral pleural effusions as well as bibasilar atelectasis. There are patchy bilateral upper lobe airspace infiltrates, consistent with acute pneumonia. These are best seen on images #21 through 34 of series 3. IMPRESSION: No pulmonary embolus or dissection. Patchy upper lobe bilateral airspace infiltrates consistent with acute pneumonia. Small to moderate bilateral pleural effusions are present as well. Reviewed, Interpreted and Dictated by Colton Tang MD Transcribed by Betzy Springer Authenticated and [facility]
[2024-11-18 08:14] LABS: Chol/HDL Ratio 3.8 (1-3.5); Cholesterol 251 mg/dl (140-200); HDL Cholesterol 66 mg/dl (40-60); Triglycerides 130 mg/dl (30-150); VLDL Cholesterol 26 mg/dL (0-40)
[2024-11-18 08:25] LABS: Direct LDL Cholesterol 135.64 mg/dL (100-129)
[2024-11-18 08:46] LABS: Thyroid Stimulating Hormone 2.54 uIU/mL (0.465-4.68)
[2024-11-18 08:48] LABS: PTT Heparin (inpatient only) 28.8 Seconds (50-75)
[2024-11-18 08:51] LABS: Troponin I 0.35 ng/ml (0.00-0.034)
[2024-11-18] MEDS: ASPIRIN EC 81MG TABLET 81 MG PO (08:52)
[2024-11-18] MEDS: CLOPIDOGREL 75MG TAB 75 MG PO (08:52)
[2024-11-18 09:06] LABS: Hemoglobin A1C 5.7 % (4.0-6.0)
[2024-11-18] MEDS: DEFINITY US ECHO CONTRAST 2ML INJ 2 MG IV ×2 (09:16→16:21)
[2024-11-18] MEDS: SODIUM CHLORIDE 0.9% 10ML SYR (RAD ONLY) 10 ML IV (09:37)
[2024-11-18] MEDS: IOPAMIDOL-370 (76%);100ML BOTTLE 85 ML IV (09:37)
[2024-11-18] MEDS: 0.9 % SODIUM CHLORIDE 50 ML VIAL IV (09:37)
--- NOTE | 2024-11-18 09:47 | PC.NURSE ---
0915 -Pt taken by w/c by nurse and SRNA for CTA. Tele and cont pulse ox monitoring during transportation. Pt tolerated well.
--- NOTE | 2024-11-18 09:52 | ECG_ITS ---
APPROVED REPORT Exam: Resting ECG HR:64 bpm ECG Measurements Heart Rate 64 AXES OH 331 P 66 QRSd 90 QRS 13 QT 422 T 139 QTc 431 Conclusion SINUS RHYTHM WITH FIRST DEGREE AV BLOCK WITH FREQUENT VENTRICULAR PREMATURE COMPLEXES INFERIOR MYOCARDIAL INFARCTION , PROBABLY OLD [40+ ms Q WAVE AND/OR ST/T ABNORMALITY IN II/aVF] POSSIBLE ANTEROLATERAL MYOCARDIAL INFARCTION , OF INDETERMINATE AGE [30 ms Q WAVE IN I/aVL/V3-V6] ABNORMAL ECG UNCONFIRMED REPORT Electronically signed by : Ha Roy MD 11/23/2024 08:55:15
--- NOTE | 2024-11-18 10:30 | PC.NURSE ---
Cards consult this AM. Carlos Topete APRN at bedside spoke w/ Dr Young and states heparin gtt not needed at this time. Continue Nipride and Dobutamine @ current rates. Plan for possible procedure today in tree tapping laborer, continue NPO. Awaiting further orders. Pt updated on POC. No needs/concerns voiced @ this time.
--- NOTE | 2024-11-18 10:41 | EXP.CARD.CON ---
History of Present Illness History of Present Illness Consult date: 11/18/24 Requesting physician: Matt Espinoza Consult reason: shortness of breath Chief complaint: SOB History of present illness: 69-year-old white female with past medical history of coronary artery disease with recent stenting to RCA and LAD 07/2024 and 08/2024, HFrEF Ef 35-40, hx of transient 3rd degree block during stemi, DM and hemorrhagic CVA in 2007 presented to ER with complaint of sudden onset soa last night after receiving some very upsetting news. Patient reports that prior to last night she had been feeling great since stenting in August. She reports she is compliant with all of her medications and is very active with routine swimming at the local [facility]. Upon presentation to emergency department initial oxygen saturation was 90% on room air. Initial EKG showed sinus rhythm at a rate of 70 with a 2-1 block with frequent supraventricular premature complexes. Labs were as follow: WBC was 8.7, hemoglobin 15.1, platelets 282, D-dimer +1.13, sodium 135, potassium 3.8, creatinine 1.1, initial troponin 0.07 trending up to 0.35 and a proBNP of 7970. Chest x-ray was concerning for pulmonary edema. Patient was started on dobutamine and Nipride drip as well as placed on BiPAP and given diuretics. Patient was admitted for further evaluation by cardiology. This morning patient is resting comfortably and reports shortness of breath is greatly improved. Denies chest pain. Remains on dobutamine and Nipride drip. CTA chest negative for PE does show patchy upper lobe bilateral airspace infiltrates consistent with acute pneumonia. Small to moderate bilateral pleural effusions are present as well. [facility] Disclaimer: The information contained in this section may have been updated after the patient was seen, as this information can be updated by other users. Medical History (Updated 11/18/24 @ 04:27 by Connie Tinajero RN) Cataract Hyperglycemia HFrEF (heart failure with reduced ejection fraction) 2nd degree AV block Stroke Hernia Surgical History History of cardiac cath H/O heart artery stent S/P cardiac cath H/O: section Social History Smoking Status: Never smoker alcohol intake: never substance use type: denies use current occupational status: retired Travel in the last 8 weeks: None household members: spouse housing: house Have you lived/traveled outside US in past 30 days?: No Contact w/someone who lives/traveled outside US past 30 days?: No Exposure to someone with infectious disease in past 14 days?: No Do you have a fever (greater than 100.4 F or 38 C)?: No Have you tested positive for COVID-19: No Exposed to someone with COVID-19 in past 14 days?: No Do you have a sore throat?: No Do you have a cough?: No Do you have any weakness?: No Do you have any diarrhea?: No Are you experiencing any unusual bleeding?: No Do you have any muscle aches/pain?: No Do you have any abdominal pain?: No Are you experiencing loss of taste or smell?: No Review of Systems Review of Systems Review of systems:: pertinent systems reviewed and negative unless documented below *Cardiovascular Cardiovascular: Reports dyspnea Comments: cough *Respiratory Respiratory: Reports dyspnea *Neurologic Neurologic: Reports system reviewed and no additional complaints, except as documented Exam Data for Last 24 hours Vital signs and Labs for Last 24 Hours: Temp Pulse Resp BP Pulse Ox O2 Del Method O2 Flow Rate 98.1 F 53 L 17 101/52 L 94 L Room Air 1 11/18/24 08:00 11/18/24 10:16 11/18/24 10:16 11/18/24 10:16 11/18/24 10:16 11/18/24 10:01 11/18/24 09:00 FiO2 30 11/18/24 02:28 Laboratory Results - last 24 hr 11/18/24 01:47: WBC 8.7, RBC 5.29, Hgb 15.1, Hct 46.0, MCV 87.0, MCH 28.5, MCHC 32.8, RDW 13.6, Plt Count 282, MPV 9.5, Neut % (Auto) 65.7, Lymph % (Auto) 28.4, [place] % (Auto) 4.7, Eos % (Auto) 0.8, Baso % (Auto) 0.2, Neut # (Auto) 5.7, Lymph # (Auto) 2.5, [place] # (Auto) 0.4, Eos # (Auto) 0.1, Baso # (Auto) 0.0, D-Dimer 1.13 H, Sodium 135 L, Potassium 3.8, Chloride 106, Carbon Dioxide 22, Anion Gap 10.8, BUN 20 H, Creatinine 1.10 H, Estimated Creat Clear 50, Estimated GFR 49 L, Est GFR ( Amer) 60, Glucose 212 H, Calcium 10.3 H, Total Bilirubin 0.9, AST 34, ALT 29, Alkaline Phosphatase 116, Troponin I 0.07 H, NT-Pro-B Natriuret Pep 7970 H, Total Protein 7.3, Albumin 4.5, Globulin 2.8, Albumin/Globulin Ratio 1.6, SARS-CoV-2 (PCR) Not detected, Influenza Type A (PCR) Not detected, Influenza Type B (PCR) Not detected, RSV (PCR) Not detected, Rhinovirus (PCR) Not detected 11/18/24 01:52: VBG pH 7.41, VBG pCO2 33.5 L, VBG pO2 57.9 H, VBG HCO3 20.8 L, VBG Total CO2 21.8 L, VBG O2 Saturation 89.7 H, VBG Base Excess -3.9 L, VBG Lactic Acid 1.7 11/18/24 03:35: POC Glucose 197 H 11/18/24 05:10: WBC 9.0, RBC 4.67, Hgb 13.4 D, Hct 40.7, MCV 87.2, MCH 28.9, MCHC 33.2, RDW 13.6, Plt Count 207 D, MPV 9.7, Neut % (Auto) 84.5 H, Lymph % (Auto) 9.2 L, [place] % (Auto) 5.6, Eos % (Auto) 0.2, Baso % (Auto) 0.2, Neut # (Auto) 7.6, Lymph # (Auto) 0.8, [place] # (Auto) 0.5, Eos # (Auto) 0.0, Baso # (Auto) 0.0, Sodium 135 L, Potassium 3.2 L, Chloride 103, Carbon Dioxide 26, Anion Gap 9.2, BUN 20 H, Creatinine 0.60 D, Estimated Creat Clear 53, Estimated GFR 99, Est GFR ( Amer) 120 D, Glucose 109 H D, Hemoglobin A1c 5.7, Calcium 7.7 L, Troponin I 0.22 H 11/18/24 06:07: POC Glucose 210 H 11/18/24 06:29: POC Glucose 178 H 11/18/24 07:50: Troponin I 0.35 H, Triglycerides 130, Cholesterol 251 H, LDL Cholesterol Direct 135.64 H, VLDL Cholesterol 26, HDL Cholesterol 66 H, Cholesterol/HDL Ratio 3.8 H, TSH 2.54 11/18/24 08:12: APTT 28.8 L I & O for Last 24 hours: Intake & Output 11/16/24 11/16/24 11/17/24 11/18/24 00:59 23:59 23:59 23:59 Output Total 450 / 450 Balance -450 / -450 Weight 138 lb Constitutional Constitutional: no acute distress *Routine Respiratory Exam Respiratory: Present rhonchi, wheezes and symmetric chest movement *Routine Cardiovascular Exam Cardiovascular: Present Normal S1, Normal S2 and irregular rhythm *Routine Abdominal Exam Abdominal: Present soft and normoactive bowel sounds; Absent tenderness *Routine Extremities Exam Extremities: Present full ROM and normal capillary refill; Absent edema *Routine Skin Exam Skin: Present intact, dry and warm Detailed Neck Exam: Thyroids Thyroid: Absent bruit Meds Home Medications and Allergies Home Medications ?Medication ?Instructions ?Recorded ?Confirmed ?Type aspirin 81 mg tablet,delayed 81 mg PO DAILY 30 days #30 tabs 08/05/24 11/18/24 Rx release blood sugar diagnostic (True #10 ea 09/10/24 11/18/24 History Metrix Glucose Test Strip) lancets 33 gauge (TRUEplus Lancets) #100 ea 09/10/24 11/18/24 History carvedilol 3.125 mg tablet (Coreg) 3.125 mg PO BID #60 tabs 10/12/24 11/18/24 Rx valsartan 80 mg tablet 80 mg PO BID #60 tabs 10/12/24 11/18/24 Rx clopidogrel 75 mg tablet (Plavix) 75 mg PO DAILY #30 tabs 10/16/24 11/18/24 Rx New Prescriptions to Start Prescriptions: Allergies Allergy/AdvReac Type Severity Reaction Status Date / Time lisinopril AdvReac Mild cough Verified 10/12/24 08:55 Assessment and Plan *Assessment and plan (1) Acute hypoxic respiratory failure: Status: Acute Category: Medical Code(s): J96.01 - Acute respiratory failure with hypoxia (2) NSTEMI (non-ST elevated myocardial infarction): Status: Acute Category: Medical Code(s): I21.4 - Non-ST elevation (NSTEMI) myocardial infarction (3) HFrEF (heart failure with reduced ejection fraction): Status: Acute Category: Medical Code(s): I50.20 - Unspecified systolic (congestive) heart failure (4) HTN (hypertension): Status: Acute Qualifiers: Hypertension type: unspecified Qualified Code(s): I10 - Essential (primary) hypertension Category: Medical Code(s): I10 - Essential (primary) hypertension Plan Acute on chronic HFrEF Acute hypoxic respiratory failure 2:1 AV block CTA negative for PE, shows mild to moderate pleural effusions ProBNP 8000 on admission Known EF of 35-40% after Stemi 07/2025 and stenting 08/2025 Llimited echo today shows EF of 35-40 while on dobutamine drip. Will stop drip and repeat limited echo with definity at 1600 today. Restart dobutamine after echo at 4. Continue Lasix 40 mg IV twice daily Continue Nipride Plan for biventricular AICD tomorrow History of coronary artery disease NSTEMI Radha score 156 STEMI 07/2025 with stenting to RCA. Stenting to LAD 08/2025 0.07 trending up to 0.35 Initiated on therapeutic Lovenox Continue aspirin and Plavix [facility] 11/18/2024: Patent coronary arteries, severe left ventricular dilation with global hypokinesis and persistently elevated LVEDP, multiple runs of nonsustained V. tach preoperatively Hypertension Systolic on the low side valsartan and beta-narayan on hold Hyperlipidemia LDL goal less than 55, continue Lipitor CV summary 11/18/2024: Stop dobutamine and repeat limited echo this afternoon to see what ejection fraction is. Restart dobutamine drip after echo this afternoon and continue throughout the evening. Plan for biventricular AICD placement tomorrow. N.p.o. after midnight.
[2024-11-18] MEDS: CEFTRIAXONE 1 GM 1 GM in 0.9 % SODIUM CHLORIDE 50 ML IV (11:06)
[2024-11-18] MEDS: DOXYCYCLINE HYCLATE 100 MG in 0.9 % SODIUM CHLORIDE 250 ML 166.667 MG IV ×2 (11:06→21:00)
[2024-11-18 11:11] LABS: POC Glucose,Bedside 136 (70-110)
[2024-11-18 11:37] LABS: Troponin I 0.47 ng/ml (0.00-0.034)
--- NOTE | 2024-11-18 12:31 | PC.NURSE ---
Spoke w/ Tracie via phone, [facility] Telephone orders to stop Dobutamine gtt, continue w/ Nipride gtt w/ current rate. Pt updated on POC.
--- NOTE | 2024-11-18 12:39 | IR_ITS ---
APPROVED REPORT Patient Location: Inpatient [place] Brusher: Kobi Tavera, RT (R) PROCEDURES Left heart catheterization Left ventriculogram Selective coronary angiogram INDICATION Acute non-ST elevation myocardial infarction, Known ischemic heart disease Informed consent was obtained prior to the procedure. COMPLICATIONS None Estimated Blood Loss: Less than 10 mls TECHNIQUE One percent lidocaine used to anesthetize the right anterior aspect of the wrist. The right radial artery was accessed via the Seldinger technique. A 6 [place]er sheath was placed in the right radial artery. 2.5 mg of Verapamil, 800 mcg of nitroglycerin, 1mg Lidocaine and 5000 U Heparin were given through the arterial sheath. The 6 [place] JL 3 catheter was also used to perform left heart catheterization, left ventriculogram and selective coronary angiogram. At the end of the procedure the sheath was removed good hemostasis was achieved using Traclet band, patient was transferred to the postop holding area in stable condition. ANGIOGRAPHIC RESULTS The left main artery Normal The left anterior descending artery Has a stent in the proximal segment which is widely patent free of in-stent restenosis with excellent proximal distal transitioning. There is additional 20 and 30% mid vessel stenoses The circumflex artery Nondominant small and has a mid vessel 40% stenosis The right coronary artery Large and dominant with a stent in the proximal to mid segment which is widely patent free of in-stent restenosis with excellent proximal distal transitioning. There is additional 20 and 30% eccentric stenoses distally. A large posterior descending artery has proximal 40% stenoses with an additional mid vessel 50 to 60% stenosis The ROSE ventriculogram reveals Severely dilated globally hypokinetic ejection fraction 10 to 15% The left ventricular end-diastolic pressure Severely elevated at 25 to 30 mmHg IMPRESSION Patent coronary arteries as described above Severe left ventricular dilatation with severe global hypokinesis and persistently elevated LVEDP Multiple runs of nonsustained ventricular tachycardia preoperatively PLAN 1. Continue nitroprusside and dobutamine 2. Will proceed with cardiac resynchronization therapy tomorrow 3. Continue to diurese 4. Risk factor modification for ischemic heart disease 5. Standard therapy for ischemic heart disease Electronically signed by : Alexx Young MD 11/18/2024 13:55:32
--- NOTE | 2024-11-18 12:49 | PC.NURSE ---
Pt down for [facility] @ this time w/ T EVELIN Bo
[2024-11-18] MEDS: LIDOCAINE 1% 10ML MDV 20 ML IJ (13:05)
[2024-11-18] MEDS: VERAPAMIL 2.5MG/ML 2ML VIAL 2.5 MG IV (13:05)
[2024-11-18] MEDS: diphenhydrAMINE 50MG/ML VIAL 50 MG IV (13:05)
[2024-11-18] MEDS: HEPARIN 1,000 UNITS/500ML NS (CATH LAB) 3000 UNIT IV (13:06)
[2024-11-18] MEDS: NITROGLYCERIN 800MCG/8ML SYR (CATH LAB) 800 MCG IA (13:06)
[2024-11-18] MEDS: HEPARIN 1,000 UNITS/ML 10ML VIAL (CATH LAB) 10000 UNIT IV (13:06)
--- NOTE | 2024-11-18 13:09 | EXP.EVENT.NO ---
Patricia Hsieh is a 69-year-old female with a medical history significant for STEMI/CAD, HFrEF 30% July 2024, second-degree (with intermittent third-degree) heart block, hemorrhagic CVA in 2007, diet-controlled diabetes who presents with shortness of breath and was admitted for HFrEF exacerbation, NSTEMI, and suspected early cardiogenic shock, community-acquired pneumonia. #Acute hypoxic respiratory failure #HFrEF exacerbation #NSTEMI #Second-degree AV block #Bilateral pleural effusions ? Initial BNP 7970, with diffuse pulmonary edema on CXR with hypoxia. Required initial BiPAP. Weaned to room air. ? Troponin uptrending to 0.47, with EKG showing nonspecific T wave changes but worsening PVCs. Patient was chest pain-free this morning. Shortness of breath also improved. ? Cardiology consulted, discontinued dobutamine and nitroprusside drips and will pursue [facility] today. Glucagon given overnight for suspected beta-narayan induced AV block. ? Continue aspirin 1 mg, Plavix 75 mg, Lasix 40 mg twice daily. Hold home Coreg due to soft pressures. ? Patient has a history of medication nonadherence, but states she has been adherent with her medications. ? LDL 135, A1c 5.7, TSH 2.54. ? Follow-up ECHO. #Community-acquired pneumonia ? CTA reveals bilateral patchy right upper lobe opacities. WBC normal. ? Ceftriaxone, doxycycline day 1. ? Follow-up sputum, blood cultures. #Hypertension ? Hold home valsartan pending [facility]. #Uncontrolled anxiety ? Will speak to patient more about different modalities to help treat anxiety. Full code DVT prophylaxis: Heparin bolus for C today
[2024-11-18] MEDS: 0.9 % SODIUM CHLORIDE 500 ML 25 ML IV (13:28)
[2024-11-18] MEDS: FENTANYL 100MCG/2ML VIAL 50 MCG IV (13:49)
[2024-11-18] MEDS: MIDAZOLAM HCL 1MG/ML 5ML VIAL 1 MG IV (13:49)
--- NOTE | 2024-11-18 14:17 | PC.NURSE ---
Pt arrived to floor from labeling machine operator @ [id number]
--- NOTE | 2024-11-18 14:22 | PC.NURSE ---
Addendum entered by Blanca Mosley RN 11/18/24 14:33: 1418 - Echo lab notified of order for stat echo. Original Note: Per report, pt to stay off Dobutamine and Nipride gtt until after echo has been performed. Once echo is complete, re-start Doubutamine and Nipride gtts at previous infusion rates. RB+V.
[2024-11-18] MEDS: IOPAMIDOL-370 (76%);100ML BOTTLE 80 ML IV (14:47)
--- NOTE | 2024-11-18 16:00 | CA_ITS ---
APPROVED REPORT EXAM: Limited 2D Echocardiogram with contrast [place] Worker: Antonette Cedeno CRT Ht: 4 ft 11 in Wt: 138lbs BSA: 1.58 BP: 144/71 mmHg Indications: CM, CHF, Pulmonary edema, ef check post cath Echo Enhancing Agent Indication: Endocardial border delineation Agent(s) / Amount(s) Used: Definity 2 cc Comments: Definity ordered M-Mode Dimensions RVDd 2.29 cm (0.9-2.6) LVDd 6.11 cm (3.5-5.7) LVDs 4.79 cm (3.5-5.7) IVSd 1.06 cm (0.6-1.1) PWd 0.63 cm (0.6-1.1) EF (Teich) 43.00% FS 21.60% EDV (Teich) 187.60 mL ESV (Teich) 107.00 mL Other Information Study Quality: Fair Conclusion This is a limited TTE to evaluate for LV systolic function without inotropic support (i.e. off dobutamine) in anticipation for planned DIRECTOR STUDENT UNION-D vs DIRECTOR STUDENT UNION-P device placement. Limited windows were obtained. Administration of ultrasound enhancing agent is performed. The left ventricle is normal in size. There is increased LV wall thickness. There is severe global hypokinesis present. The septal and inferoseptal LV rodriguez are akinetic. LVEF is 25%. Electronically signed by : Diamond Flores MD 11/19/2024 00:05:09
[2024-11-18] MEDS: DOBUTAMINE HCL/D5W 250 ML 9.39 MG IV (16:07)
[2024-11-18 16:58] LABS: POC Glucose,Bedside 217 (70-110)
[2024-11-18 18:49] LABS: Troponin I 0.43 ng/ml (0.00-0.034)
[2024-11-18 20:11] LABS: POC Glucose,Bedside 152 (70-110)
[2024-11-18] MEDS: ATORVASTATIN 40MG TABLET 40 MG PO (21:01)
[2024-11-19] VITALS (57 sets, daily range): BP systolic 90–159; BP diastolic 38–98; PULSE 40–111; RESP 14–23; TEMP 36.5–36.8; O2SAT 92–99; BMI 28.0
[2024-11-19 06:16] LABS: POC Glucose,Bedside 104 (70-110)
[2024-11-19 06:22] LABS: Basophils % 0.5 % (0.1-2.0); Eosinophils # 0.1 K/mm3 (0.0-0.4); Eosinophils % 1.9 % (0.1-12.0); Hematocrit 38.7 % (37.0-47.0); Hemoglobin 12.6 g/dL (12.2-16.2); Lymphocytes # 2.1 K/mm3 (0.7-4.5); Lymphocytes % 36.1 % (10-50); Mean Corpuscular HGB Conc 32.6 g/dL (31.8-35.4); Mean Corpuscular Hemoglobin 28.4 pg (27.0-31.2); Mean Corpuscular Volume 87.2 fl (81-99); Mean Platelet Volume 9.7 fl (7.4-10.4); Monocytes # 0.5 K/mm3 (0.1-1.0); Monocytes % 8.8 % (1.7-9.3); Neutrophils # 3.1 K/mm3 (1.8-7.8); Neutrophils % 52.5 % (37.0-80.0); Platelet Count 210 K/mm3 (142-424); Red Blood Count 4.44 M/mm3 (4.20-5.40); White Blood Count 5.9 K/mm3 (4.8-10.8)
[2024-11-19 06:47] LABS: Alanine Aminotransferase 22 U/L (12-78); Albumin Level 3.6 g/dl (3.5-5.0); Albumin/Globulin Ratio 1.5 (1.1-1.8); Alkaline Phosphatase 82 U/L (38-126); Anion Gap 8.4 mEq/L (5-15); Aspartate Amino Transferase 32 U/L (14-36); Bilirubin,Total 1.2 mg/dl (0.2-1.3); Blood Urea Nitrogen 21 mg/dl (7-17); Calcium 8.4 mg/dl (8.4-10.2); Carbon Dioxide 26 mmol/L (22.0-30.0); Chloride 106 mmol/L (98-107); Creatinine Clearance Estimated 41 mL/min (50-200); Estimated Glomerular Filt Rate 41 ml/min (>60); GFR (African American) 49 ML/MIN (>60); Globulin 2.4 g/dL (1.3-3.2); Glucose 99 mg/dl (74-100); Magnesium 1.8 mg/dl (1.6-2.3); Potassium 3.4 mmoL/L (3.5-5.1); Sodium 137 mmol/L (136-145)
--- NOTE | 2024-11-19 08:45 | IR_ITS ---
APPROVED REPORT Patient Location: Inpatient Electrical Integrator: Kobi Tavera RT (R) PROCEDURES 1. Pocket formation for biventricular pacemaker generator with cardiac resynchronization/defibrillator therapy. 2. Placement of atrial sensing and pacing lead into the right atrial appendage. 3. Placement of a right ventricular sensing, pacing and shocking lead in the right ventricular apex. 4. Placement of left ventricular sensing pacing lead via the coronary sinus. 5. Permanent cardiac resynchronization therapy with ICD implantation/biventricular pacemaker. 6. Loop recorder device removal INDICATION Systolic Congestive Heart Failure, ejection <25%, Second-degree 2-1 AV block, [place] Heart Assoication Class 3 Congestive Heart Failure, Heart Block, Ventricular tachycardia Informed consent was obtained prior to the procedure. COMPLICATIONS NONE Estimated Blood Loss: LESS THAN 10 ML TECHNIQUE 1% Lidocaine with epinephrine used to anesthetized the left anterior aspect of the chest. Scalpel was used to make the initial cutaneous incision while electrocautery was used to dissect down tinto the fascia. The fascia was lifted off the pectoralis muscle and digitally manipulated creating a pocket for the defibrillator. The patient was then placed in Trendelenburg position and the subclavian vein was accessed 3 times via the Selinger technique. A 8 Martiniquais sheath was placed under fluoroscopic guidance into the subclavian vein. The dilator was removed from the sheath. Using fluoroscopic guidance, the ventricular lead was placed into the right ventricular apex, screwed and secured into place. Electronic interrogation proved acceptable thresholds and voltage within the lead. Using 3-0 silk, the ventricular lead was then secured into place and sheath peeled away. Following this, a 9.5 [place]iquais sheath and dilator was then placed over one of the wires while keeping the other wire in place within the subclavian vein. The dilator was removed from the sheath. Using fluoroscopic guidance, contrast was used to visualize the coronary sinus, the left ventricular lead was placed into the coronary sinus. Electronic interrogation proved acceptable thresholds and voltage within the lead. Using 3-0 silk, the left ventricular lead was then secured into place and sheath peeled away.An additional 6 Martin[place]ais fresh sheath and dilator was placed over the existing wire. Using fluoroscopic guidance, the atrial lead was then placed into the right atrial appendage and screwed and secured in place. Electrical interrogation demonstrated acceptable thresholds and voltage number. The atrial lead was then secured into place using 3-0 silk and sheath peeled away. 1 gram of Ancef was used to flush the pocket. All 3 leads were connected to generator and tested via computer. The defibrillator then secured to the fascia. Monocryl was used to close the subcutaneous layers while yuko were used to close the cutaneous layer. 1% lidocaine given at the area of the loop recorder device, scapel and hemastat used to removed device. yuko used to close incision. A pressure dressing was placed and the patient was transferred to the postop holding area in stable condition for postoperative care. INTERROGATION Generator Model number: [place] HF, [id number] Generator Serial number: [id number] Atrial lead model number: Tendril STS, 2088TC 46cm Atrial lead serial number: [id number] P-wave: 4-5 mV Impedance: 600 ohms Threshold: 1.0V@0.5ms Right Ventricular lead model number: Optisure, [id number], 58cm Right Ventricular lead serial number: [id number] R-wave: 8-10 mV Impedance: 600 ohms Threshold: 0.75V@0.5ms High Voltage Impedance: 42 ohms Left Ventricular lead model number: Quartet, 1458Q, 86cm Left Ventricular lead serial number: [id number] Impedance: 730 ohms Threshold: 1.0V@1.0ms Pacing Parameters: Mode: DDDR Base/Max Track:60 ppm / 130 ppm No diaphragmatic stimulation at 10 volts. IMPRESSION 1. Successful Pocket formation for biventricular pacemaker generator with cardiac resynchronization/defibrillator therapy. 2. Successfu Placement of atrial sensing and pacing lead into the right atrial appendage. 3. Successfu Placement of a right ventricular sensing, pacing and shocking lead in the right ventricular apex. 4. Successfu Placement of left ventricular sensing pacing lead via the coronary sinus. 5. Successfu Permanent cardiac resynchronization therapy with ICD implantation/biventricular pacemaker. 6. Successfu Loop recorder device removal PLAN 1. Postop wound care. Electronically signed by : Alexx Young MD 11/20/2024 10:03:32
[2024-11-19] MEDS: DOXYCYCLINE HYCLATE 100 MG in 0.9 % SODIUM CHLORIDE 250 ML 166.667 MG IV ×2 (09:21→20:31)
[2024-11-19] MEDS: CEFTRIAXONE 1 GM 1 GM in 0.9 % SODIUM CHLORIDE 50 ML IV ×2 (09:21→13:15)
[2024-11-19] MEDS: FUROSEMIDE 40MG/4ML VIAL 40 MG IV ×2 (09:21→16:47)
--- NOTE | 2024-11-19 09:48 | EXP.CARD.PN ---
Subjective Subjective Date: 11/19/24 Time: 08:30 Principal diagnosis: Volume overload Interval history: Patient doing well this morning. Remains on dobutamine and nitroprusside drips. Vitals are stable. Morning labs reviewed. Echo shows EF of 25%. Denies chest pain or soa. Patient awaiting BiV-AICD placement today. Exam Data for Last 24 hours Vital signs and Labs for Last 24 Hours: Temp Pulse Resp BP Pulse Ox O2 Del Method O2 Flow Rate 97.7 F 90 15 115/75 96 Room Air 1 11/19/24 06:07 11/19/24 09:31 11/19/24 09:31 11/19/24 09:31 11/19/24 09:31 11/19/24 08:00 11/18/24 09:00 FiO2 30 11/18/24 02:28 Laboratory Results - last 24 hr 11/18/24 10:55: Troponin I 0.47 H 11/18/24 11:04: POC Glucose 136 H 11/18/24 16:51: POC Glucose 217 H 11/18/24 18:05: Troponin I 0.43 H 11/18/24 20:03: POC Glucose 152 H 11/19/24 05:35: WBC 5.9 D, RBC 4.44, Hgb 12.6, Hct 38.7, MCV 87.2, MCH 28.4, MCHC 32.6, RDW 14.0, Plt Count 210, MPV 9.7, Neut % (Auto) 52.5, Lymph % (Auto) 36.1, [place] % (Auto) 8.8, Eos % (Auto) 1.9, Baso % (Auto) 0.5, Neut # (Auto) 3.1, Lymph # (Auto) 2.1, Early # (Auto) 0.5, Eos # (Auto) 0.1, Baso # (Auto) 0.0, Sodium 137, Potassium 3.4 L, Chloride 106, Carbon Dioxide 26, Anion Gap 8.4, BUN 21 H, Creatinine 1.30 H D, Estimated Creat Clear 41, Estimated GFR 41 L, Est GFR ( Amer) 49 L D, Glucose 99, Calcium 8.4, Magnesium 1.8, Total Bilirubin 1.2, AST 32, ALT 22, Alkaline Phosphatase 82, Total Protein 6.0 L, Albumin 3.6 D, Globulin 2.4, Albumin/Globulin Ratio 1.5 11/19/24 06:08: POC Glucose 104 I & O for Last 24 hours: Intake & Output 11/16/24 11/17/24 11/18/24 11/19/24 23:59 23:59 23:59 23:59 Intake Total 671.898 / 946.898 275 / 275 Output Total 1650 / 1650 150 / 150 Balance -978.102 / -703.102 125 / 125 Weight 138 lb 138 lb 14.259 oz Constitutional Constitutional: no acute distress *Routine Respiratory Exam Respiratory: Present CTA bilaterally and symmetric chest movement *Routine Cardiovascular Exam Cardiovascular: Present RRR, Normal S1 and Normal S2 *Routine Abdominal Exam Abdominal: Present soft and normoactive bowel sounds; Absent tenderness *Routine Extremities Exam Extremities: Present full ROM and normal capillary refill; Absent edema *Routine Skin Exam Skin: Present intact, dry and warm Detailed Neck Exam: Thyroids Thyroid: Absent bruit Progress Note: A&P Assessment and plan (1) Acute hypoxic respiratory failure: Status: Acute (2) NSTEMI (non-ST elevated myocardial infarction): Status: Acute (3) HFrEF (heart failure with reduced ejection fraction): Status: Acute (4) HTN (hypertension): Status: Acute Assessment and Plan Assessment and Plan for All Diagnoses:: Acute on chronic HFrEF Acute hypoxic respiratory failure 2:1 AV block CTA negative for PE, shows mild to moderate pleural effusions ProBNP 8000 on admission Known EF of 35-40% after Stemi 07/2025 and stenting 08/2025 Llimited echo shows and EF of 25% Continue Lasix 40 mg IV twice daily Continue Nipride BiV-AICD placement scheduled for today. Discussed risks vs benefits, patient is agreeable. History of coronary artery disease NSTEMI Radha score 156 STEMI 07/2025 with stenting to RCA. Stenting to LAD 08/2025 0.07 trending up to 0.35 Initiated on therapeutic Lovenox Continue aspirin and Plavix [facility] 11/18/2024: Patent coronary arteries, severe left ventricular dilation with global hypokinesis and persistently elevated LVEDP, multiple runs of nonsustained V. tach preoperatively Hypertension Systolic on the low side valsartan and beta-narayan on hold Hyperlipidemia LDL goal less than 55, continue Lipitor CV summary 11/19/2024: Patient awaiting AICD placement. After AICD placement can stop Nipride drip and start Isordil 20mg po TID. Stop ketamine drip at midnight.
[2024-11-19] MEDS: SODIUM CHLORIDE 3% 15ML NEB 3 ML IH (10:22)
--- NOTE | 2024-11-19 10:35 | EXP.ANES.CKL ---
[facility] Disclaimer: The information contained in this section may have been updated after the patient was seen, as this information can be updated by other users. Medical History (Updated 11/18/24 @ 04:27 by Connie Tinajero RN) Cataract Hyperglycemia HFrEF (heart failure with reduced ejection fraction) 2nd degree AV block Stroke Hernia Surgical History History of cardiac cath H/O heart artery stent S/P cardiac cath H/O: section Social History Smoking Status: Never smoker alcohol intake: never substance use type: denies use current occupational status: retired Travel in the last 8 weeks: None household members: spouse housing: house Have you lived/traveled outside [place] in past 30 days?: No Contact w/someone who lives/traveled outside US past 30 days?: No Exposure to someone with infectious disease in past 14 days?: No Do you have a fever (greater than 100.4 F or 38 C)?: No Have you tested positive for COVID-19: No Exposed to someone with COVID-19 in past 14 days?: No Do you have a sore throat?: No Do you have a cough?: No Do you have any weakness?: No Do you have any diarrhea?: No Are you experiencing any unusual bleeding?: No Do you have any muscle aches/pain?: No Do you have any abdominal pain?: No Are you experiencing loss of taste or smell?: No [facility] Anesthesia Checklist Patient Identification Patient Identification: Arm Band Structural Data Admitted From: Inpatient Planned Operative Procedure/s: Biventricular AICD Placement Consent for Planned Operative Procedure(s) Verified: Yes Verified Documents: Surgical Consent and History and Physical NPO Status Verified Time NPO: 00:00 Additional verifications Anesthesia Reactions: No Airway Assessment Mallampati Score:: Class II C-Spine Mobility Assessed: Yes TMJ Mobility Assessed: Yes Dentition: Good Dentition Neurological Assessment Level of Consciousness: Awake, Alert and Appropriate Anesthesia Plan Anesthesia Risk discussed: Yes Anesthesia Plan: Verified ASA Class: IV Anesthesia Type: MAC
[2024-11-19 12:26] LABS: POC Glucose,Bedside 107 (70-110)
[2024-11-19] MEDS: LIDOCAINE 1% W/EPI 1:100,000 20ML VIAL 20 ML SQ (13:16)
[2024-11-19] MEDS: CEFAZOLIN 1GM VIAL 1 GM TP (13:17)
--- NOTE | 2024-11-19 14:47 | XR_ITS ---
FINAL REPORT CLINICAL HISTORY: Confirm pacemaker/AID placement COMPARISON: None FINDINGS: A left subclavian bivalve pacer is present. There are overlying skin yuko. The heart size is mildly enlarged. The mediastinum is normal. There is no focal infiltrate or edema. There are no pleural effusions. There is no pneumothorax. There is no osseous abnormality. IMPRESSION: No pneumothorax post pacer placement. Reviewed, Interpreted and Dictated by Colton Tang MD Transcribed by Allison Cooper Authenticated and [facility]
[2024-11-19] MEDS: IOPAMIDOL-370 (76%);100ML BOTTLE 15 ML IV (15:07)
[2024-11-19] MEDS: DOBUTAMINE HCL/D5W 250 ML 9.39 MG IV (15:38)
--- NOTE | 2024-11-19 17:40 | PC.NURSE ---
Pt post BIV ICD placement today, doing well. Site is C/D/I w/ no s/s of hematoma. Pt reports some tenderness at site and left shoulder. Remains on room air. Dobutamine infusing per mar, per Dr. Young to be DC'd @ midnight tonight. Family at bedside. No needs voiced @ this time. POC ongoing.
[2024-11-19 17:43] LABS: POC Glucose,Bedside 90 (70-110)
[2024-11-19] MEDS: ATORVASTATIN 40MG TABLET 40 MG PO (20:31)
[2024-11-19] MEDS: ISOSORBIDE DINITRATE 20 MG TABLET PO (20:32)
[2024-11-19 21:17] LABS: POC Glucose,Bedside 320 (70-110)
--- NOTE | 2024-11-19 22:09 | P.PN_ITS ---
Subjective *Date: 11/19/24 *Time: 22:09 Interval history: Patient feels well this morning, she is ready for her AICD. Extensively discussed risk factors for CAD today. Open to starting cholesterol medication. Exam Data for Last 24 hours Vital signs and Labs for Last 24 Hours: Temp Pulse Resp BP Pulse Ox O2 Del Method O2 Flow Rate 98.2 F 51 L 22 114/68 96 Room Air 2 11/19/24 14:47 11/19/24 22:01 11/19/24 22:01 11/19/24 22:00 11/19/24 22:01 11/19/24 21:57 11/19/24 14:47 FiO2 30 11/18/24 02:28 Laboratory Results - last 24 hr 11/19/24 05:35: WBC 5.9 D, RBC 4.44, Hgb 12.6, Hct 38.7, MCV 87.2, MCH 28.4, MCHC 32.6, RDW 14.0, Plt Count 210, MPV 9.7, Neut % (Auto) 52.5, Lymph % (Auto) 36.1, [place] % (Auto) 8.8, Eos % (Auto) 1.9, Baso % (Auto) 0.5, Neut # (Auto) 3.1, Lymph # (Auto) 2.1, [place] # (Auto) 0.5, Eos # (Auto) 0.1, Baso # (Auto) 0.0, Sodium 137, Potassium 3.4 L, Chloride 106, Carbon Dioxide 26, Anion Gap 8.4, BUN 21 H, Creatinine 1.30 H D, Estimated Creat Clear 41, Estimated GFR 41 L, Est GFR ( Amer) 49 L D, Glucose 99, Calcium 8.4, Magnesium 1.8, Total Bilirubin 1.2, AST 32, ALT 22, Alkaline Phosphatase 82, Total Protein 6.0 L, Albumin 3.6 D, Globulin 2.4, Albumin/Globulin Ratio 1.5 11/19/24 06:08: POC Glucose 104 11/19/24 12:17: POC Glucose 107 11/19/24 17:30: POC Glucose 90 11/19/24 21:07: POC Glucose 320 H* I & O for Last 24 hours: Intake & Output 11/16/24 11/17/24 11/18/24 11/19/24 23:59 23:59 23:59 23:59 Intake Total 671.898 / 946.898 615.822 / 615.822 Output Total 2450 / 2450 1400 / 1400 Balance -1778.102 / -1503.102 -784.178 / -784.178 Weight 62.596 kg 63 kg Microbiology Reports for the Last 24 Hours: Microbiology 11/18/24 10:50 Blood Blood Culture - Preliminary NO GROWTH AFTER 24 HOURS 11/18/24 10:55 Blood Blood Culture - Preliminary NO GROWTH AFTER 24 HOURS Constitutional Constitutional: no acute distress *Routine HEENT Exam Head: Present normocephalic Eye: Present EOMI and PERRL ENT: Present mucous membranes moist *Routine Neck Exam Neck: Present supple; Absent lymphadenopathy *Routine Respiratory Exam Respiratory: Present CTA bilaterally *Routine Cardiovascular Exam Cardiovascular: Present RRR *Routine Abdominal Exam Abdominal: Present soft and normoactive bowel sounds; Absent tenderness *Routine Extremities Exam Extremities: Absent cyanosis, clubbing or edema *Routine Skin Exam Skin: Present warm; Absent rash *Routine Neurological Exam Neurological: Present alert and oriented X3 Assessment and Plan *Assessment and plan (1) Heart failure, systolic, with acute decompensation: Status: Acute Category: Medical Code(s): I50.23 - Acute on chronic systolic (congestive) heart failure (2) Pulmonary edema: Status: Acute Qualifiers: Chronicity: acute Qualified Code(s): J81.0 - Acute pulmonary edema Category: Medical Code(s): J81.1 - Chronic pulmonary edema (3) NSTEMI (non-ST elevated myocardial infarction): Status: Acute Category: Medical Code(s): I21.4 - Non-ST elevation (NSTEMI) myocardial infarction (4) First degree AV block: Status: Acute Category: Medical Code(s): I44.0 - Atrioventricular block, first degree (5) Elevated d-dimer: Status: Acute Category: Medical Code(s): R79.89 - Other specified abnormal findings of blood chemistry (6) Acute hypoxic respiratory failure: Status: Acute Category: Medical Code(s): J96.01 - Acute respiratory failure with hypoxia (7) CKD (chronic kidney disease): Status: Acute Qualifiers: Chronic kidney disease stage: unspecified stage Qualified Code(s): N18.9 - Chronic kidney disease, unspecified Category: Medical Code(s): N18.9 - Chronic kidney disease, unspecified (8) Hyperglycemia: Status: Acute Category: Medical Code(s): R73.9 - Hyperglycemia, unspecified Plan Patricia Hsieh is a 69-year-old female with a medical history significant for STEMI/CAD, HFrEF 30% July 2024, second-degree (with intermittent third- degree) heart block, hemorrhagic CVA in 2007, diet-controlled diabetes who presents with shortness of breath and was admitted for HFrEF exacerbation, NSTEMI, and suspected early cardiogenic shock, community-acquired pneumonia. #Acute hypoxic respiratory failure #HFrEF exacerbation #NSTEMI #Second-degree AV block #Bilateral pleural effusions ? Initial BNP 7970, with diffuse pulmonary edema on CXR with hypoxia. Required initial BiPAP. Weaned to room air. ? Troponin uptrending to 0.47, with EKG showing nonspecific T wave changes but worsening PVCs. Patient was chest pain-free this morning. Shortness of breath also improved. ? Cardiology consulted, s/p [facility] 11/18/2024 without occlusive coronary disease. No stents placed. Recommended biventricular AICD for cardiac resynchronization for severely dilated LV. ? S/p biventricular AICD on 11/19/2024. ? Continue aspirin 1 mg, Plavix 75 mg, Lasix 40 mg twice daily. Hold home Coreg due to soft pressures. ? Continue Isordil 20 mg 3 times daily. ? Patient has a history of medication nonadherence, but states she has been adherent with her medications. ? LDL 135, A1c 5.7, TSH 2.54. ? Follow-up ECHO. #Community-acquired pneumonia ? CTA reveals bilateral patchy right upper lobe opacities. WBC normal. ? Ceftriaxone, doxycycline day 2. ? Follow-up sputum, blood cultures. #Hypertension ? Resume home medications once appropriate for BP. Currently normal BP. #Uncontrolled anxiety ? Will speak to patient more about different modalities to help treat anxiety. Full code DVT prophylaxis: Lovenox 40 mg
[2024-11-20] VITALS (37 sets, daily range): BP systolic 117–137; BP diastolic 65–82; PULSE 79–113; RESP 12–29; TEMP 36.9–37; O2SAT 26–97; BMI 27.1
[2024-11-20 06:28] LABS: Basophils % 0.3 % (0.1-2.0); Eosinophils # 0.1 K/mm3 (0.0-0.4); Eosinophils % 1.8 % (0.1-12.0); Hemoglobin 12.1 g/dL (12.2-16.2); Lymphocytes # 1.4 K/mm3 (0.7-4.5); Mean Corpuscular HGB Conc 32.7 g/dL (31.8-35.4); Mean Corpuscular Hemoglobin 28.5 pg (27.0-31.2); Mean Corpuscular Volume 87.1 fl (81-99); Mean Platelet Volume 9.7 fl (7.4-10.4); Monocytes # 0.7 K/mm3 (0.1-1.0); Monocytes % 10.3 % (1.7-9.3); Neutrophils # 4.5 K/mm3 (1.8-7.8); Neutrophils % 66.5 % (37.0-80.0); Platelet Count 189 K/mm3 (142-424); Red Blood Count 4.25 M/mm3 (4.20-5.40); Red Cell Distribution Width 14.3 % (11.5-17.5); White Blood Count 6.7 K/mm3 (4.8-10.8)
[2024-11-20 06:39] LABS: POC Glucose,Bedside 119 (70-110)
[2024-11-20 06:55] LABS: Alanine Aminotransferase 20 U/L (12-78); Albumin Level 3.5 g/dl (3.5-5.0); Albumin/Globulin Ratio 1.5 (1.1-1.8); Alkaline Phosphatase 79 U/L (38-126); Anion Gap 8.1 mEq/L (5-15); Aspartate Amino Transferase 40 U/L (14-36); Bilirubin,Total 1.4 mg/dl (0.2-1.3); Blood Urea Nitrogen 21 mg/dl (7-17); Calcium 8.5 mg/dl (8.4-10.2); Carbon Dioxide 26 mmol/L (22.0-30.0); Chloride 104 mmol/L (98-107); Creatinine Clearance Estimated 47 mL/min (50-200); Estimated Glomerular Filt Rate 49 ml/min (>60); GFR (African American) 60 ML/MIN (>60); Globulin 2.4 g/dL (1.3-3.2); Glucose 104 mg/dl (74-100); Magnesium 1.6 mg/dl (1.6-2.3); Potassium 3.1 mmoL/L (3.5-5.1); Sodium 135 mmol/L (136-145); Total Protein,Serum 5.9 g/dl (6.3-8.2)
[2024-11-20] MEDS: DOXYCYCLINE HYCLATE 100 MG in 0.9 % SODIUM CHLORIDE 250 ML 166.667 MG IV (08:55)
[2024-11-20] MEDS: METOPROLOL SUCCINATE XL 25MG TABLET 25 MG PO (08:57)
[2024-11-20] MEDS: ISOSORBIDE DINITRATE 20 MG TABLET PO (08:58)
[2024-11-20] MEDS: FUROSEMIDE 40MG/4ML VIAL 40 MG IV (08:58)
[2024-11-20] MEDS: ASPIRIN EC 81MG TABLET 81 MG PO (08:58)
[2024-11-20] MEDS: CLOPIDOGREL 75MG TAB 75 MG PO (08:58)
--- NOTE | 2024-11-20 10:10 | P.PN_ITS ---
Subjective Subjective Date: 11/20/24 Time: 08:30 Principal diagnosis: Volume overload Interval history: Patient is status post biventricular AICD placement yesterday. Patient reports she is doing well, denies chest pain or shortness of breath. Patient is requesting to go home. Patient has been off of dobutamine and Nipride drip since yesterday afternoon and is doing well. Vitals and morning labs are stable. Exam Data for Last 24 hours Vital signs and Labs for Last 24 Hours: Temp Pulse Resp BP Pulse Ox O2 Del Method O2 Flow Rate 98.6 F 92 H 18 137/82 96 Room Air 2 11/20/24 08:00 11/20/24 09:00 11/20/24 09:00 11/20/24 09:00 11/20/24 09:00 11/20/24 09:00 11/19/24 14:47 FiO2 30 11/18/24 02:28 Laboratory Results - last 24 hr 11/19/24 12:17: POC Glucose 107 11/19/24 17:30: POC Glucose 90 11/19/24 21:07: POC Glucose 320 H* 11/20/24 05:26: WBC 6.7, RBC 4.25, Hgb 12.1 L, Hct 37.0, MCV 87.1, MCH 28.5, MCHC 32.7, RDW 14.3, Plt Count 189, MPV 9.7, Neut % (Auto) 66.5, Lymph % (Auto) 21.0, [place] % (Auto) 10.3 H, Eos % (Auto) 1.8, Baso % (Auto) 0.3, Neut # (Auto) 4.5, Lymph # (Auto) 1.4, [place] # (Auto) 0.7, Eos # (Auto) 0.1, Baso # (Auto) 0.0, Sodium 135 L, Potassium 3.1 L, Chloride 104, Carbon Dioxide 26, Anion Gap 8.1, BUN 21 H, Creatinine 1.10 H, Estimated Creat Clear 47, Estimated GFR 49 L, Est GFR ( Amer) 60 D, Glucose 104 H, Calcium 8.5, Magnesium 1.6 D, Total Bilirubin 1.4 H, AST 40 H, ALT 20, Alkaline Phosphatase 79, Total Protein 5.9 L, Albumin 3.5, Globulin 2.4, Albumin/Globulin Ratio 1.5 11/20/24 06:12: POC Glucose 119 H I & O for Last 24 hours: Intake & Output 11/17/24 11/18/24 11/19/24 11/20/24 23:59 23:59 23:59 23:59 Intake Total 671.898 / 946.898 615.822 / 965.822 350 / 350 Output Total 2450 / 2450 1400 / 1850 900 / 900 Balance -1778.102 / -1503.102 -784.178 / -884.178 -550 / -550 Weight 138 lb 138 lb 14.259 oz 134 lb 7.712 oz Microbiology Reports for the Last 24 Hours: Microbiology 11/18/24 03:20 Anus CRE Surveillance Culture - Final Negative 11/18/24 10:50 Blood Blood Culture - Preliminary NO GROWTH AFTER 24 HOURS 11/18/24 10:55 Blood Blood Culture - Preliminary NO GROWTH AFTER 24 HOURS Constitutional Constitutional: no acute distress Routine Chest/Breast/Axilla Exam Comments: AICD insertion site: Dressing is dry and intact. Slight bruising noted around dressing. No redness or warmth present. *Routine Respiratory Exam Respiratory: Present CTA bilaterally and symmetric chest movement *Routine Cardiovascular Exam Cardiovascular: Present RRR, Normal S1 and Normal S2 *Routine Abdominal Exam Abdominal: Present soft and normoactive bowel sounds; Absent tenderness *Routine Extremities Exam Extremities: Present full ROM and normal capillary refill; Absent edema *Routine Skin Exam Skin: Present intact, dry and warm Detailed Neck Exam: Thyroids Thyroid: Absent bruit Progress Note: A&P Assessment and plan (1) Heart failure, systolic, with acute decompensation: Status: Acute (2) Pulmonary edema: Status: Acute (3) NSTEMI (non-ST elevated myocardial infarction): Status: Acute (4) First degree AV block: Status: Acute (5) Elevated d-dimer: Status: Acute (6) Acute hypoxic respiratory failure: Status: Acute (7) CKD (chronic kidney disease): Status: Acute (8) Hyperglycemia: Status: Acute Assessment and Plan Assessment and Plan for All Diagnoses:: Acute on chronic HFrEF-improving Acute hypoxic respiratory failure-resolved Status post biventricular AICD placement for a 2:1 AV block CTA negative for PE, shows mild to moderate pleural effusions ProBNP 8000 on admission Known EF of 35-40% after Stemi 07/2025 and stenting 08/2025 Llimited echo shows and EF of 25% Patient had biventricular AICD placed yesterday. She is doing well. Denies chest pain or shortness of breath. Vitals are stable. No lower extremity edema present and lung sounds are clear. Please continue valsartan 80 mg p.o. daily (cannot afford Entresto), Aldactone 25 mg p.o. daily and Lasix 40 mg p.o. daily. Patient cannot afford Farxiga or Jardiance. Will consider addition of beta-narayan at office follow- up. History of coronary artery disease NSTEMI Radha score 156 STEMI 07/2025 with stenting to RCA. Stenting to LAD 08/2025 0.07 trending up to 0.35 Initiated on therapeutic Lovenox Continue aspirin and Plavix [facility] 11/18/2024: Patent coronary arteries, severe left ventricular dilation with global hypokinesis and persistently elevated LVEDP, multiple runs of nonsustained V. tach preoperatively Hypertension Will resume valsartan at discharge Hyperlipidemia LDL goal less than 55, continue Lipitor CV summary 11/20/2024: Patient is status post biventricular AICD placement for a 2-1 AV block and an ejection fraction of 25%. Patient is CV stable for discharge home at this time. Please stop Isordil and continue the below listed cardiac medications and have patient follow-up in cardiology clinic at 11:00 on Saturday for reevaluation. Cardiac meds: Valsartan 80 mg p.o. daily Aldactone 25 mg p.o. daily Lasix 40 mg p.o. daily Aspirin 81 mg p.o. daily Plavix 75 mg p.o. daily Atorvastatin 40 mg p.o. daily
--- NOTE | 2024-11-20 11:56 | P.DS_ITS ---
General Admission date:: 11/18/24 HPI HPI HPI: This is a 69-year-old female who has a past medical history significant for systolic dysfunction congestive heart failure with a EF of 30- 40%, secondary heart block, coronary artery disease, hypertension, CVA, and hernia who presents with a chief complaint of shortness of breath. Due to patient's symptoms, she presented to the emergency room for evaluation. While in the emergency room, patient was acutely hypoxic with room air saturations in the 90s. Chest x-ray was consistent with pulmonary edema and her BNP was significantly elevated. Interventional cardiology was consulted and recommended placing patient on dobutamine, nitroprusside, BiPAP, and given patient diuretics. Due to these recommendations, patient is being admitted for further management. During my evaluation of the patient, patient states that she had a normal day yesterday. She voices waking up normally. She states that around 2200 hrs. yesterday evening she had some distressing news. She attempted to go to sleep at around 2300 hrs. and when she laid on her left side she felt as if she was smothering. She states she was able to cough and it was phlegm only. Her shortness of breath Progressively worse, so she presented to the emergency room for evaluation. She does endorse having some dizziness with this shortness of breath. It is worth mentioning that patient recently underwent PCI in due to the MD. During this intervention, patient received 5 cardiac stents. She reports she has been compliant with DAPT therapy. Currently, she is resting comfortably on the BiPAP and is denying any chest pain, lightheadedness, dizziness, fever, chills, lower extremity edema, PND, orthopnea, nausea, vomiting, or diarrhea. EKG per my read was consistent with sinus rhythm to sinus tachycardia with a first-degree AV block, PACs, left axis shift, and normal axis. Additional pertinent values obtained include a D-dimer of 1.13, sodium 135, BUN of 20, creatinine of 1.10, GFR 59, blood glucose of 212, calcium of 10.3, troponin 0.07, and BNP of 7970. Hospital Course Hospital Course Hospital Course: Patricia Hsieh is a 69-year-old female with a medical history significant for STEMI/CAD, HFrEF 30% July 2024, second-degree (with intermittent third- degree) heart block, hemorrhagic CVA in 2007, diet-controlled diabetes who presents with shortness of breath and was admitted for HFrEF exacerbation, NSTEMI, and suspected early cardiogenic shock, community-acquired pneumonia. #Acute hypoxic respiratory failure #HFrEF exacerbation #NSTEMI #Second-degree AV block #Bilateral pleural effusions #Hypertension ? Initial BNP 7970, with diffuse pulmonary edema on CXR with hypoxia. Required initial BiPAP. Weaned to room air. ? Troponin uptrending to 0.47, with EKG showing nonspecific T wave changes but worsening PVCs. Patient was chest pain-free this morning. Shortness of breath also improved. ? Cardiology consulted, s/p C 11/18/2024 without occlusive coronary disease. No stents placed. Recommended biventricular AICD for cardiac resynchronization for severely dilated LV. ? S/p biventricular AICD on 11/19/2024. ? ECHO reveals moderate to severe reduction in LV systolic function (LVEF 30%). Near akinesis of the inferior, inferolateral, and inferoseptal LV rodriguez. ? Continue aspirin 1 mg, Plavix 75 mg, Lasix 40 mg twice daily. Started spironolactone 25 mg, atorvastatin 40 mg. Hold home Coreg due to soft pressures. Can be restarted on outpatient basis. ? Continue Isordil 20 mg 3 times daily. ? Patient has a history of medication nonadherence, but states she has been adherent with her medications. ? LDL 135, A1c 5.7, TSH 2.54. #Community-acquired pneumonia ? CTA reveals bilateral patchy right upper lobe opacities. WBC normal. ? Discharged with levofloxacin for 3 more days. #CKD stage III ? Creatinine 1.1, GFR 49. Stable Total time spent on discharge: 32 minutes on chart review, counseling, documentation, and direct care with patient. Exam Data for Last 24 hours Vital signs and Labs for Last 24 Hours: Temp Pulse Resp BP Pulse Ox O2 Del Method O2 Flow Rate 98.6 F 79 20 131/78 94 L Nasal Cannula 1 11/20/24 08:00 11/20/24 11:00 11/20/24 11:00 11/20/24 11:00 11/20/24 11:00 11/20/24 11:00 11/20/24 11:00 FiO2 30 11/18/24 02:28 Laboratory Results - last 24 hr 11/19/24 12:17: POC Glucose 107 11/19/24 17:30: POC Glucose 90 11/19/24 21:07: POC Glucose 320 H* 11/20/24 05:26: WBC 6.7, RBC 4.25, Hgb 12.1 L, Hct 37.0, MCV 87.1, MCH 28.5, MCHC 32.7, RDW 14.3, Plt Count 189, MPV 9.7, Neut % (Auto) 66.5, Lymph % (Auto) 21.0, [place] % (Auto) 10.3 H, Eos % (Auto) 1.8, Baso % (Auto) 0.3, Neut # (Auto) 4.5, Lymph # (Auto) 1.4, [place] # (Auto) 0.7, Eos # (Auto) 0.1, Baso # (Auto) 0.0, Sodium 135 L, Potassium 3.1 L, Chloride 104, Carbon Dioxide 26, Anion Gap 8.1, BUN 21 H, Creatinine 1.10 H, Estimated Creat Clear 47, Estimated GFR 49 L, Est GFR ( Amer) 60 D, Glucose 104 H, Calcium 8.5, Magnesium 1.6 D, Total Bilirubin 1.4 H, AST 40 H, ALT 20, Alkaline Phosphatase 79, Total Protein 5.9 L, Albumin 3.5, Globulin 2.4, Albumin/Globulin Ratio 1.5 11/20/24 06:12: POC Glucose 119 H I & O for Last 24 hours: Intake & Output 11/17/24 11/18/24 11/19/24 11/20/24 23:59 23:59 23:59 23:59 Intake Total 671.898 / 946.898 615.822 / 965.822 350 / 350 Output Total 2450 / 2450 1400 / 1850 900 / 900 Balance -1778.102 / -1503.102 -784.178 / -884.178 -550 / -550 Weight 62.596 kg 63 kg 61 kg Microbiology Reports for the Last 24 Hours: Microbiology 11/18/24 10:55 Blood Blood Culture - Preliminary NO GROWTH AFTER 48 HOURS 11/18/24 10:50 Blood Blood Culture - Preliminary NO GROWTH AFTER 48 HOURS 11/18/24 03:20 Anus CRE Surveillance Culture - Final Negative Constitutional Constitutional: no acute distress *Routine HEENT Exam Head: Present normocephalic Eye: Present EOMI and PERRL ENT: Present mucous membranes moist *Routine Neck Exam Neck: Present supple; Absent lymphadenopathy *Routine Respiratory Exam Respiratory: Present CTA bilaterally *Routine Cardiovascular Exam Cardiovascular: Present RRR *Routine Abdominal Exam Abdominal: Present soft and normoactive bowel sounds; Absent tenderness *Routine Extremities Exam Extremities: Absent cyanosis, clubbing or edema *Routine Skin Exam Skin: Present warm; Absent rash *Routine Neurological Exam Neurological: Present alert and oriented X3 Results Data Completed and Pending Labs on day of discharge: Labs from last 24 hours 11/20/24 11/20/24 11/19/24 06:12 05:26 21:07 WBC 6.7 RBC 4.25 Hgb 12.1 L Hct 37.0 MCV 87.1 MCH 28.5 MCHC 32.7 RDW 14.3 Plt Count 189 MPV 9.7 Neut % (Auto) 66.5 Lymph % (Auto) 21.0 [place] % (Auto) 10.3 H Eos % (Auto) 1.8 Baso % (Auto) 0.3 Neut # (Auto) 4.5 Lymph # (Auto) 1.4 [place] # (Auto) 0.7 Eos # (Auto) 0.1 Baso # (Auto) 0.0 Sodium 135 L Potassium 3.1 L Chloride 104 Carbon Dioxide 26 Anion Gap 8.1 BUN 21 H Creatinine 1.10 H Estimated Creat Clear 47 Estimated GFR 49 L Est GFR ( Amer) 60 D Glucose 104 H POC Glucose 119 H 320 H* Calcium 8.5 Magnesium 1.6 D Total Bilirubin 1.4 H AST 40 H ALT 20 Alkaline Phosphatase 79 Total Protein 5.9 L Albumin 3.5 Globulin 2.4 Albumin/Globulin Ratio 1.5 11/19/24 11/19/24 17:30 12:17 WBC RBC Hgb Hct MCV MCH MCHC RDW Plt Count MPV Neut % (Auto) Lymph % (Auto) [place] % (Auto) Eos % (Auto) Baso % (Auto) Neut # (Auto) Lymph # (Auto) [place] # (Auto) Eos # (Auto) Baso # (Auto) Sodium Potassium Chloride Carbon Dioxide Anion Gap BUN Creatinine Estimated Creat Clear Estimated GFR Est GFR ( Amer) Glucose POC Glucose 90 107 Calcium Magnesium Total Bilirubin AST ALT Alkaline Phosphatase Total Protein Albumin Globulin Albumin/Globulin Ratio Preliminary micro results at discharge 11/18/24 10:55 Blood Culture - Preliminary Blood NO GROWTH AFTER 48 HOURS 11/18/24 10:50 Blood Culture - Preliminary Blood NO GROWTH AFTER 48 HOURS DS: Diagnosis Discharge Diagnosis (1) Heart failure, systolic, with acute decompensation: Status: Acute Code(s): I50.23 - Acute on chronic systolic (congestive) heart failure (2) Pulmonary edema: Status: Acute Code(s): J81.1 - Chronic pulmonary edema Qualifiers: Chronicity: acute Qualified Code(s): J81.0 - Acute pulmonary edema (3) NSTEMI (non-ST elevated myocardial infarction): Status: Acute Code(s): I21.4 - Non-ST elevation (NSTEMI) myocardial infarction (4) First degree AV block: Status: Acute Code(s): I44.0 - Atrioventricular block, first degree (5) Elevated d-dimer: Status: Acute Code(s): R79.89 - Other specified abnormal findings of blood chemistry (6) Acute hypoxic respiratory failure: Status: Acute Code(s): J96.01 - Acute respiratory failure with hypoxia (7) CKD (chronic kidney disease): Status: Acute Code(s): N18.9 - Chronic kidney disease, unspecified Qualifiers: Chronic kidney disease stage: unspecified stage Qualified Code(s): N18.9 - Chronic kidney disease, unspecified (8) Hyperglycemia: Status: Acute Code(s): R73.9 - Hyperglycemia, unspecified Meds Home Medications and Allergies Home Medications ?Medication ?Instructions ?Recorded ?Confirmed ?Type aspirin 81 mg tablet,delayed 81 mg PO DAILY 30 days #30 tabs 08/05/24 12/09/24 Rx release blood sugar diagnostic (True #10 ea 09/10/24 12/09/24 History Metrix Glucose Test Strip) lancets 33 gauge (TRUEplus Lancets) #100 ea 09/10/24 12/09/24 History atorvastatin 40 mg tablet 40 mg PO HS 30 days #90 tabs 11/23/24 12/09/24 Rx carvedilol 3.125 mg tablet (Coreg) 3.125 mg PO BID #180 tabs 11/23/24 12/09/24 Rx clopidogrel 75 mg tablet (Plavix) 75 mg PO DAILY #90 tabs 11/23/24 12/09/24 Rx furosemide 40 mg tablet 40 mg PO DAILY #90 tabs 11/23/24 12/09/24 Rx spironolactone 25 mg tablet 25 mg PO DAILY #90 tabs 11/23/24 12/09/24 Rx Farxiga 10 mg tablet 10 mg PO DAILY 30 days #30 tabs 12/09/24 12/09/24 Rx (dapagliflozin propanediol) sacubitril 24 mg-valsartan 26 mg 1 tab PO BID #60 tabs 12/09/24 12/09/24 Rx tablet (Entresto) New Prescriptions to Start Prescriptions: Allergies Allergy/AdvReac Type Severity Reaction Status Date / Time lisinopril AdvReac Mild cough Verified 12/09/24 09:22 Discharge Plan Disposition Patient Disposition: Home, Self-Care Condition: Fair Discharge Order Discharge Orders: Discharge Order (Routine); Ordered 11/20/24 Ordered By: Matt Espinoza Follow up Plan Follow up with: Tracie Topete APRN [Nurse Practitioner] - 11/23/24 11:00 am Provider,MD Shravan [Primary Care Provider] - Enter time for follow up (patient states she will call and make a PCP appointment (:) Prescriptions/Medication Reconciliation: Continued (DME) True Metrix Glucose Test Strip Strip See Rx Instructions .ROUTE .MEDSUPPLY Qty: 10 Rx Instructions: As directed (DME) lancets [TRUEplus Lancets] 33 gauge misc See Rx Instructions .ROUTE .MEDSUPPLY Qty: 100 Rx Instructions: As directed aspirin 81 mg Tablet,Delayed Release (Dr/Ec) 81 mg PO DAILY 30 Days Qty: 30 0RF Discontinued carvedilol [Coreg] 3.125 mg tablet 3.125 mg PO BID Qty: 60 5RF Rx Instructions: must administer with a meal/food valsartan 80 mg tablet 80 mg PO BID Qty: 60 5RF No Action Entresto 24-26 mg tablet 1 tab PO BID Qty: 60 3RF dapagliflozin propanediol [Farxiga] 10 mg tablet 10 mg PO DAILY 30 Days Qty: 30 5RF atorvastatin 40 mg tablet 40 mg PO HS 30 Days Qty: 90 3RF carvedilol [Coreg] 3.125 mg tablet 3.125 mg PO BID Qty: 180 3RF Rx Instructions: must administer with a meal/food clopidogrel [Plavix] 75 mg tablet 75 mg PO DAILY Qty: 90 3RF furosemide 40 mg tablet 40 mg PO DAILY Qty: 90 3RF spironolactone 25 mg tablet 25 mg PO DAILY Qty: 90 3RF dapagliflozin propanediol [Farxiga] 10 mg tablet 0RF Entresto 24-26 mg tablet 0RF Problem Reconciliation Problems Reviewed?: Yes Patient Discharge Instructions Patient Instructions: Cardiac Catheterization, Surgical Site Infection, Moderate Sedation, DI for Post-Surgical Bleeding Print Language: Citizen Of [place] Providers Primary Care Provider: Provider,Referral Admit Provider: Matt Espinoza Attending Provider: Matt Espinoza
--- NOTE | 2024-11-23 10:10 | SW/DCPLANNER ---
Spoke with patient on the phone. Patient stated that she is doing very well. Patient stated that she was able to get her new medicine from clinic pharmacy. Patient stated that she is aware of her upcoming appointments. Patient stated that she is bruised and sore. Patient stated that she has no concerns or questions at this time. Ellen Aviles
== END 2024-11-20 13:26 | disposition home or self-care (01) | DRG 275 ==
LOC: ER 02:43 → ICU 02:45
PROVIDERS: Internal Medicine; Nurse Practitioner Family; Admitting Provider Student in an Organized Health Care Education/Training Program; Emergency Provider Emergency Medicine; Visit Provider Student in an Organized Health Care Education/Training Program
PROC: 4A023N7 Measurement of Cardiac Sampling and Pressure, Left Heart, Percutaneous Approach (ICD-10-PCS; principal; 2024-11-18 13:00)
PROC: 0JH608Z Insertion of Defibrillator Generator into Chest Subcutaneous Tissue and Fascia, Open Approach (ICD-10-PCS; CPT 33249; principal; 2024-11-19 12:00)
DX: I11.0 Hypertensive heart disease with heart failure (principal); I21.4 Non-ST elevation (NSTEMI) myocardial infarction; I50.23 Acute on chronic systolic (congestive) heart failure; J96.01 Acute respiratory failure with hypoxia; J18.9 Pneumonia, unspecified organism; I47.20 Ventricular tachycardia, unspecified; I42.9 Cardiomyopathy, unspecified; I44.1 Atrioventricular block, second degree; I25.10 Atherosclerotic heart disease of native coronary artery without angina pectoris; E78.5 Hyperlipidemia, unspecified; I25.2 Old myocardial infarction; F41.9 Anxiety disorder, unspecified; E11.22 Type 2 diabetes mellitus with diabetic chronic kidney disease; N18.30 Chronic kidney disease, stage 3 unspecified; Z79.899 Other long term (current) drug therapy; Z79.84 Long term (current) use of oral hypoglycemic drugs; Z95.5 Presence of coronary angioplasty implant and graft; Z88.8 Allergy status to other drugs, medicaments and biological substances; Z86.73 Personal history of transient ischemic attack (TIA), and cerebral infarction without residual deficits
CPT/HCPCS: 33249; 36415; 71045; 71046; 71275; 80048; 80053; 80061; 82803; 82962; 83036; 83735; 83880; 84443; 84484; 85025; 85378; 85730; 87040; 87081; 87631; 93005; 93308; 93458; 94760; 94761; 99152; 99291; C1725; C1769; C1882; C1895; C1898; C1900; J0696; J1200; J1250; J1611; J1644; J1650; J1940; J2060; J2250; J2704; J3010; J7060; Q9957; Q9967

== ENCOUNTER 2024-12-03 08:32 | Outpatient (CLI) | payer MEDICARE, SELFPAY ==
[2024-12-03 09:30] LABS: Basophils % 0.4 % (0.1-2.0); Eosinophils # 0.1 K/mm3 (0.0-0.4); Eosinophils % 2.1 % (0.1-12.0); Hematocrit 41.4 % (37.0-47.0); Hemoglobin 13.1 g/dL (12.2-16.2); Lymphocytes # 1.4 K/mm3 (0.7-4.5); Lymphocytes % 20.8 % (10-50); Mean Corpuscular HGB Conc 31.6 g/dL (31.8-35.4); Mean Corpuscular Hemoglobin 28.2 pg (27.0-31.2); Mean Platelet Volume 8.7 fl (7.4-10.4); Monocytes # 0.4 K/mm3 (0.1-1.0); Monocytes % 5.2 % (1.7-9.3); Neutrophils # 4.7 K/mm3 (1.8-7.8); Neutrophils % 71.2 % (37.0-80.0); Platelet Count 300 K/mm3 (142-424); Red Blood Count 4.65 M/mm3 (4.20-5.40); Red Cell Distribution Width 13.9 % (11.5-17.5); White Blood Count 6.7 K/mm3 (4.8-10.8)
== END 2024-12-03 23:59 | disposition home or self-care (01) ==
LOC: LAB 08:33
PROVIDERS: PCP Family Medicine; Visit Provider Internal Medicine
DX: I25.10 Atherosclerotic heart disease of native coronary artery without angina pectoris (principal); I10 Essential (primary) hypertension
CPT/HCPCS: 36415; 85025

== ENCOUNTER 2024-12-07 13:00 | Outpatient (CLI) | payer MEDICARE, SELFPAY ==
--- NOTE | 2024-12-07 13:00 | CA_ITS ---
APPROVED REPORT EXAM: Comprehensive 2D, Doppler, and color-flow Echocardiogram [employer] Account Executive: Cyn Davenport RT(R) Ht: 4 ft 11 in Wt: 144lbs BSA: 1.60 BP: 162/83 mmHg Indications: Heart failure, HFrEF, CAD with stent, recent pacemaker/AICD placement, abn EKG, EF 25% on echo 11/18/24, hyperlipidemia. Ordered as limited with contrast to reassess EF. Echo Enhancing Agent Indication: Endocardial border delineation Agent(s) / Amount(s) Used: Definity 2 cc 2D Dimensions EF AP4 41.10 % GL Strain -9.3 % M-Mode Dimensions RVDd 1.65 cm (0.9-2.6) LVDd 5.65 cm (3.5-5.7) LVDs 5.11 cm (3.5-5.7) IVSd 0.75 cm (0.6-1.1) PWd 0.64 cm (0.6-1.1) EF (Teich) 20.70% FS 9.60% EDV (Teich) 156.80 mL ESV (Teich) 124.40 mL Other Information Study Quality: Fair Conclusion This is a limited TTE to evaluate for LV systolic function. Limited windows are obtained. Ultrasound enhancing agent is administered. The left ventricle is mildly dilated. There is increased LV wall thickness. There is severe global hypokinesis present. The septal and inferior septal LV rodriguez are akinetic. The septum is asynchronous. LVEF is 25%. Ultrasound enhancing agent demonstrates no evidence of LV thrombus. Compared to prior limited TTE from 11/18/2024, there is no significant change in LV systolic function. Electronically signed by : Diamond Flores MD 12/07/2024 22:26:39
[2024-12-07] MEDS: DEFINITY US ECHO CONTRAST 2ML INJ 2 MG IV (13:42)
== END 2024-12-07 23:59 | disposition home or self-care (01) ==
LOC: RT 13:01
PROVIDERS: PCP Family Medicine; Visit Provider Nurse Practitioner
DX: I44.1 Atrioventricular block, second degree (principal); I25.10 Atherosclerotic heart disease of native coronary artery without angina pectoris; I50.20 Unspecified systolic (congestive) heart failure; R00.1 Bradycardia, unspecified; R94.31 Abnormal electrocardiogram [ECG] [EKG]; I11.0 Hypertensive heart disease with heart failure
CPT/HCPCS: 93308; Q9957

== ENCOUNTER 2025-03-22 13:51 | Outpatient (CLI) | payer MEDICARE, SELFPAY ==
--- OUTSIDE RECORDS SUMMARY | 2025-03-22 14:02 | XMS_ITS ---
Author Organization Unknown Plan of Treatment Description Planned Activity Planned Timing - Telephone encounter Jul 08, 2024 Patient Care team information Name Category Status Period Participants - - Proposed period not known -
[2025-03-22 15:32] LABS: Hematocrit 41.4 % (37.0-47.0); Hemoglobin 13.6 g/dL (12.2-16.2); Immature Granulocytes % 0.2 %; Mean Corpuscular HGB Conc 32.9 g/dL (31.8-35.4); Mean Corpuscular Hemoglobin 29.8 pg (27.0-31.2); Mean Corpuscular Volume 90.6 fl (81-99); Nucleated Red Blood Cells % 0 %; Platelet Count 218 K/mm3 (142-424); Red Blood Count 4.57 M/mm3 (4.20-5.40); Red Cell Distribution Width-SD 44.3 fL; White Blood Count 4.9 K/mm3 (4.8-10.8)
[2025-03-22 15:57] LABS: Alanine Aminotransferase 16 U/L (12-78); Albumin Level 4.4 g/dl (3.5-5.0); Alkaline Phosphatase 84 U/L (38-126); Anion Gap 17.8 mEq/L (5-15); Aspartate Amino Transferase 29 U/L (14-36); Bilirubin,Direct 0.3 mg/dl (0.0-0.4); Bilirubin,Indirect 0.7 mg/dL (0.0-0.9); Bilirubin,Total 1.0 mg/dl (0.2-1.3); Bilirubin,Unconjugated 0.7 mg/dL (0.0-1.1); Blood Urea Nitrogen 34 mg/dl (7-17); Calcium 9.7 mg/dl (8.4-10.2); Carbon Dioxide 24 mmol/L (22.0-30.0); Chloride 101 mmol/L (98-107); Cholesterol 196 mg/dl (140-200); Creatinine,Serum 1.30 mg/dl (0.52-1.04); Estimated Glomerular Filt Rate 41 ml/min (>60); GFR (African American) 49 ML/MIN (>60); Glucose 104 mg/dl (74-100); HDL Cholesterol 69 mg/dl (40-60); Magnesium 2.1 mg/dl (1.6-2.3); Potassium 4.8 mmoL/L (3.5-5.1); Sodium 138 mmol/L (136-145); Total Protein,Serum 7.0 g/dl (6.3-8.2); Triglycerides 103 mg/dl (30-150)
[2025-03-22 16:15] LABS: Free T4 (Free Thyroxine) 1.61 ng/dl (0.78-2.19)
[2025-03-22 16:30] LABS: Thyroid Stimulating Hormone 1.90 uIU/mL (0.465-4.68)
== END 2025-03-22 23:59 | disposition home or self-care (01) ==
LOC: LAB 13:52
PROVIDERS: PCP Family Medicine; Visit Provider Nurse Practitioner
DX: I25.10 Atherosclerotic heart disease of native coronary artery without angina pectoris (principal); I10 Essential (primary) hypertension
CPT/HCPCS: 36415; 80048; 80061; 80076; 83735; 84439; 84443; 85025